=== PATIENT | female | born 1940 | race Caucasian/White ===

== ENCOUNTER 2019-05-06 10:32 | Emergency (ER) | payer MEDICARE, OTHER, SELFPAY ==
[2019-05-06 11:27] VITALS: BP 145/70; PULSE 92; RESP 18; TEMP 36.4; O2SAT 96; BMI 21.9
[2019-05-06 12:21] LABS: Basophils % 0.4 %; Eosinophils # 0.3 10^3/uL (0.0-0.8); Eosinophils % 4.6 %; Hematocrit 41.1 % (37.0-47.0); Hemoglobin 13.1 g/dL (11.5-15.3); Lymphocytes # 1.4 10^3/uL (0.8-4.8); Lymphocytes % 18.7 %; Mean Corpuscular HGB Conc 31.9 g/dL (30.0-36.0); Mean Corpuscular Hemoglobin 30.3 pg (28.0-34.0); Mean Corpuscular Volume 94.9 fL (81-99); Mean Platelet Volume 10.3 fL (7.4-10.4); Monocytes # 0.9 10^3/uL (0.2-0.9); Monocytes % 11.9 %; Neutrophils # 4.6 10^3/uL (1.8-7.7); Neutrophils % 64.3 %; Nucleated Red Blood Cells % 0 %; Platelet Count 283 10^3/cmm (130-400); Red Blood Count 4.33 10^6/uL (4.1-5.3); Red Cell Distribution Width 14.9 % (12.1-15.1); White Blood Count 7.2 10^3/uL (4.0-10.0)
[2019-05-06 12:42] LABS: Alanine Aminotransferase 17 U/L (0-33); Albumin Level 3.9 g/dL (3.5-5.2); Alkaline Phosphatase 138 IU/L (35-105); Anion Gap 12.7 (5-19); Aspartate Amino Transferase 19 U/L (0-32); Blood Urea Nitrogen 17 mg/dL (8-23); Calcium 9.9 mg/dL (8.5-10.5); Carbon Dioxide 29 mmol/L (22-29); Chloride 101 mmol/L (98-107); Creatinine Clr Calc Pharmacy 50.7166; Globulin 3.6 g/dL (1.3-4.6); Glucose 75 mg/dL (74-106); Magnesium 2.1 mg/dL (1.7-2.3); Potassium 3.7 mmol/L (3.5-5.1); Sodium 139 mmol/L (136-145); Total Bilirubin 0.3 mg/dL (0.15-1.2); Total Protein 7.5 g/dL (6.6-8.7)
[2019-05-06 12:44] LABS: INR 0.93 (0.8-1.2); Partial Thromboplastin Time 23.7 SECONDS (23.9-36.7)
--- NOTE | 2019-05-06 14:54 | ED_ITS ---
Entered by Melanie Humphrey, acting as scribe for Artemio Luo DO May 06, 2019 10:32 HPI - Extremity Problem General: Chief complaint: Extremity Problem,Nontraumatic Stated complaint: RIGHT LEG PAIN Time Seen by Provider: 05/06/19 14:54 Source: patient Mode of arrival: wheelchair Limitations: no limitations History of Present Illness: MD Complaint: extremity swelling Onset (ago): day(s) (today) Pain Consistency: constant Location: right Radiation: none Relieving factors: nothing Exacerbating factors: weight bearing, walking and exertion Associated symptoms: Reports no associated symptoms Review of Systems General: Reports: 10 or more systems reviewed and unremarkable except in HPI and below PFSH ED PFSH: Statuses (acute, chronic, etc) shown below reflect problem list status as previously entered and may not be historically accurate Medical History (Updated 04/23/19 @ 12:43 by Khloe Arthur DO) CVA (cerebral vascular accident) (Acute) Fibromyalgia (Acute) GERD (gastroesophageal reflux disease) (Acute) H/O fracture of hip (Acute) Hypothyroidism (Acute) Leg edema (Acute) Lumbar degenerative disc disease (Chronic) Mixed incontinence (Acute) Osteoarthritis (Acute) Osteoporosis (Acute) Surgical History (Updated 04/23/19 @ 10:39 by Khloe Arthur DO) H/O dilation and curettage (Acute) H/O hand surgery (Acute) H/O knee surgery (Acute) H/O tubal ligation (Acute) History of tonsillectomy (Acute) Social History Smoking and tobacco status: current every day smoker cigarettes Packs smoked per day: 1 Alcohol intake: never Physical Exam Const: COMMON NORMALS: no apparent distress, average body habitus, oriented x3, no limitations, healthy appearing, alert and well nourished HENMT: COMMON NORMALS: normocephalic, head/scalp atraumatic, hearing grossly normal bilaterally, external ears normal, EAC's normal, TM's normal bilaterally, external nose normal, nasal mucous membranes and turbinates normal, moist oral mucous membranes, oropharynx normal, dentition normal and gingiva normal HEAD & SCALP: normocephalic and atraumatic NOSE: external nose normal and nasal mucous membranes and turbinates normal EXTERNAL EAR: Yes external ears normal EXTERNAL AUDITORY CANAL: EAC's normal TYMPANIC MEMBRANE: TM's normal bilaterally Eye: COMMON NORMALS: PERRL, EOMs intact bilaterally, conjunctivae normal, no scleral icterus, no papilledema, normal visual mckeon by confrontation and fundi normal bilaterally CONJUNCTIVA: Yes conjunctivae normal PUPIL: Yes PERRL DIRECT OPHTHALMOSCOPY: Yes no papilledema and Yes fundi normal bilaterally Neck/C-Spine: COMMON NORMALS: full ROM, no lymphadenopathy, supple, no meningeal signs, no JVD, thyroid normal and no carotid bruits THYROID: thyroid normal Chest: COMMONS NORMALS: inspection of chest normal and palpation of chest normal Resp: COMMON NORMALS: normal respiratory effort, no retractions, no use of accessory muscles, clear to auscultation bilaterally and percussion normal AUSCULTATION: clear to auscultation bilaterally PERCUSSION: percussion normal Cardio: COMMON NORMALS: no JVD, regular rate, regular rhythm, S1 normal heart sound, S2 normal heart sound, no gallops, no clicks, no murmurs, no rub and peripheral pulses 2+ throughout RATE: regular rate RHYTHM: regular rhythm HEART SOUNDS: S1 normal and S2 normal PERIPHERAL PULSES: pulses 2+ throughout GI: COMMON NORMALS: normal to inspection, nondistended, normoactive bowel sounds, soft to palpation, non-tender, no hepatosplenomegaly, no masses and no bruits PALPATION: Yes soft and Yes no hepatosplenomegaly : COMMON NORMALS: Yes no CVA tenderness and Yes external appearance normal BLADDER/KIDNEY EXAM: Yes no CVA tenderness Back/Pelvis: COMMON NORMALS: no CVA tenderness, thoracic and lumbar spine normal to inspection, no thoracic nor lumbar tenderness, thoraco-lumbar ROM norm al and straight leg raise negative bilaterally Extremity: GENERAL: Yes edema (4 plus on R leg) Neuro: COMMON NORMALS: oriented x3 SENSORIUM/ORIENTATION: Yes alert MENINGEAL SIGNS: Yes no meningeal signs Skin: COMMON NORMALS: no rashes or lesions noted, no wounds, skin turgor normal, no jaundice, no petechiae and no mottling GENERAL SKIN EXAM: no rashes or lesions noted and turgor normal Course Vital Signs: Vital signs: Vital Signs Temperature 98.6 F 05/06/19 15:09 Pulse Rate 95 05/06/19 15:09 Respiratory Rate 16 02/04/20 15:09 Blood Pressure 93/64 05/06/19 15:09 Pulse Oximetry 98 05/06/19 15:09 MDM - Extremity (Nontraumatic) Lab Data: Labs: Lab Results 05/06/19 05/06/19 05/06/19 Range/Units 12:04 12:04 12:04 WBC 7.2 (4.0-10.0) 10^3/ uL RBC 4.33 (4.1-5.3) 10^6/u L Hgb 13.1 (11.5-15.3) g/dL Hct 41.1 (37.0-47.0) % MCV 94.9 (81-99) fL MCH 30.3 (28.0-34.0) pg MCHC 31.9 (30.0-36.0) g/dL RDW 14.9 (12.1-15.1) % Plt Count 283 (130-400) 10^3/c mm MPV 10.3 (7.4-10.4) fL Neut % (Auto) 64.3 % Lymph % (Auto) 18.7 % [place] % (Auto) 11.9 % Eos % (Auto) 4.6 % Baso % (Auto) 0.4 % Neut # (Auto) 4.6 (1.8-7.7) 10^3/u L Lymph # (Auto) 1.4 (0.8-4.8) 10^3/u L [place] # (Auto) 0.9 (0.2-0.9) 10^3/u L Eos # (Auto) 0.3 (0.0-0.8) 10^3/u L Baso # (Auto) 0.0 (0.0-0.1) 10^3/u L Nucleated RBC % (a uto) 0 % Nucleated RBCs # 0.0 /100WBC PT 12.50 (10.5-13.3) SECO NDS INR 0.93 (0.8-1.2) APTT 23.7 L (23.9-36.7) SECO NDS Sodium 139 (136-145) mmol/L Potassium 3.7 (3.5-5.1) mmol/L Chloride 101 (98-107) mmol/L Carbon Dioxide 29 (22-29) mmol/L Anion Gap 12.7 (5-19) BUN 17 (8-23) mg/dL Creatinine 0.9 (0.5-0.9) mg/dL Glucose 75 (74-106) mg/dL Calcium 9.9 (8.5-10.5) mg/dL Magnesium 2.1 (1.7-2.3) mg/dL Total Bilirubin 0.3 (0.15-1.2) mg/dL AST 19 (0-32) U/L ALT 17 (0-33) U/L Alkaline Phosphata se 138 H (35-105) IU/L Total Protein 7.5 (6.6-8.7) g/dL Albumin 3.9 (3.5-5.2) g/dL Globulin 3.6 (1.3-4.6) g/dL Discharge Plan Discharge Prescriptions: No Action calcium carbonate-vitamin D3 [Oyster Shell Calcium-Vit D3] 500 mg(1,250mg) - 400 unit tablet 1 tab PO QDAY RF: 0 magnesium 250 mg tablet 250 mg PO QDAY RF: 0 ICaps AREDS 7,160-113-100 [id number]-hk-[id number] tablet,delayed release (DR/EC) 1 tab PO ONCE RF: 0 amitriptyline 100 mg tablet 100 mg PO QDAY RF: 0 baclofen 5 mg tablet 5 mg PO TID Qty: 90 RF: 0 clopidogrel [Plavix] 75 mg tablet 75 mg PO QDAY RF: 0 famotidine [Pepcid] 40 mg tablet 40 mg PO QDAY RF: 0 levothyroxine 50 mcg capsule 50 mcg PO QDAY RF: 0 potassium chloride 10 mEq capsule, extended release 20 meq PO QDAY RF: 0 furosemide 40 mg tablet 40 mg PO QAM RF: 0 duloxetine [Cymbalta] 30 mg capsule,delayed release(DR/EC) 30 mg PO QDAY RF: 0 tramadol 50 mg tablet 50 - 100 mg PO BID PRNRF: 0 Coding Level of Care Code ED Grain Thresher for Chg Fwd Exam Problem Focused The documentation recorded by the Kam eid Bridget Annette, accurately reflects the service I personally performed and the decisions made by Valerio patino Donald P, DO May 06, 2019 10:32
--- NOTE | 2019-05-06 14:59 | USCV_ITS ---
Bennett Gina Age: 79 Gender: F : 1940 Exam Date: 05/06/2019 15:22 Ordering Phys: Artemio Luo DO Technologist: Kourtney Redman [place] [facility] [place]: PAIN, SWELLING HISTORY: PT HAS HX OF BROKEN HIP AND OTHER ISSUES WITH LEGS-RT FOOT TURNS IN. PROCEDURES: Venous duplex imaging was performed in only the right lower extremity. The following venous structures were evaluated: common femoral vein, profunda vein, proximal portion of the greater saphenous vein, superficial femoral vein, and the popliteal vein. In addition, the posterior tibial and peroneal trunk were evaluated. FINDINGS: Normal 2-D Doppler and augmentation and compressibility throughout the lower extremity venous structures. Additional imaging through the proximal calf veins also reveals no thrombus. Limited evaluation of the greater saphenous vein is patent with no thrombus.. CONCLUSIONS No evidence of right lower extremity DVT. Drake Zabala MD (Electronically Signed) Final Date: 06 May 2019 16:23 S
[2019-05-06 15:09] VITALS: BP 93/64; PULSE 95; RESP 16; TEMP 37; O2SAT 98
[2019-05-06 16:45] VITALS: BP 128/67; PULSE 107; RESP 14; TEMP 36.4; O2SAT 96
== END 2019-05-06 16:46 | disposition home or self-care (01) ==
PROVIDERS: Emergency Provider Family Medicine; Family Provider Electrodiagnostic Medicine; PCP Family Medicine
DX: M79.604 Pain in right leg (principal); R22.41 Localized swelling, mass and lump, right lower limb; E03.9 Hypothyroidism, unspecified; F17.210 Nicotine dependence, cigarettes, uncomplicated
CPT/HCPCS: 36415; 80053; 83735; 85025; 85610; 85730; 93971; 99281; 99283

== ENCOUNTER 2019-06-19 14:19 | Outpatient (CLI) | payer MEDICARE, OTHER, SELFPAY ==
[2019-06-19 14:45] VITALS: BP 125/65; PULSE 94; RESP 18; TEMP 36.5; O2SAT 97
[2019-06-19] MEDS: denosumab 60 mg SDV SUBCUT (15:15)
--- NOTE | 2019-06-19 15:16 | PC.NURSE ---
Pt and caregiver educated on Prolia. Prolia information and brochure given.
[2019-06-19 15:45] VITALS: BP 138/76; TEMP 36.7
--- NOTE | 2019-06-19 16:33 | PC.NURSE ---
On arrival, pt screened per COVID 19 guidelines. Denies fever, cough, SOB. Denies any illness or possible exposure.
== END 2019-06-19 14:20 | disposition home or self-care (01) ==
LOC: RHEOACUTE 14:20
PROVIDERS: Family Provider Electrodiagnostic Medicine; PCP Family Medicine; Visit Provider Internal Medicine Rheumatology
DX: M81.0 Age-related osteoporosis without current pathological fracture (principal)
CPT/HCPCS: 96372; J0897

== ENCOUNTER 2019-07-02 13:51 | Outpatient (CLI) | payer MEDICARE, OTHER, SELFPAY ==
--- NOTE | 2019-07-02 13:56 | XR_ITS ---
WS: [id number] LUMBAR SPINE FLEXION AND EXTENSION TECHNIQUE: 3 views of the lumbar spine: Lateral neutral, flexion, and extension views. CLINICAL INFORMATION: LOW BACK PAIN COMPARISON: None. FINDINGS: Osteopenia. Normal alignment on the neutral view. Disc space narrowing worse at L2-L3, L3-L4, L4-L5 a nd L5-S1. Vascular calcification. Mild chronic anterior wedging at L2. Advanced facet arthropathy low er lumbar spine. No instability on flexion extension. XR/XR lumbar spine f/e only [id number] IMPRESSION: 1. No instability on flexion-extension. 2. Mild chronic appearing anterior wedging at L2.
--- NOTE | 2019-07-02 13:56 | CT_ITS ---
WS: [id number] CT LUMBAR SPINE TECHNIQUE: Noncontrast CT of the lumbar spine with coronal and sagittal reformatted images. CLINICAL INFORMATION: LOW BACK PAIN COMPARISON: MRI August 06, 2012 DLP: 1623.[address] scans at [facility] use at least one of these dose optimization techniques: automat ed exposure control; mA and/or kV adjustment per patient size (includes targeted exams where dose is matched to clinical indication); or iterative reconstruction. FINDINGS: Moderate lumbar scoliosis convex right. Mild chronic appearing compression of the superior endplate L 2. This is stable since 2012. Moderate spondylitic changes. Disc space narrowing with vacuum disc phe nomenon L2-3 and L4-5. Disc space narrowing L5-S1. L1-L2: Mild disc bulging with osteophytic ridging. Spinal canal and foramen are patent. Moderate face t arthropathy. L2-L3: Left eccentric disc osteophyte complex with moderate left foraminal narrowing. Impingement on the exiting left L2 nerve root. Right foramen is patent. Moderate facet arthropathy. Mild central can al stenosis. L3-L4: Mild disc bulging with osteophytic ridging. Mild central canal stenosis. Mild left and no sign ificant right foraminal narrowing. Moderate to advanced facet arthropathy. L4-L5: Slight retrolisthesis L4 on L5. Vacuum disc phenomenon. Mild central canal stenosis and narrow ing of the subarticular recess bilaterally. Mild right and no significant left foraminal narrowing. M oderate facet arthropathy. L5-S1: Small central disc osteophyte complex with slight effacement of ventral thecal sac. Contact of the traversing S1 nerve roots. Moderate right and no significant left foraminal narrowing. Advanced right facet arthropathy. Partially visualized large left renal cyst measuring 6.5CM. Right peripelvic renal cyst measuring 1.5 cm. Aortic calcification. Slightly aneurysmal infrarenal abdominal aorta measuring 1.[address]/CT lumbar spine wo con* [id number] IMPRESSION: 1. Moderate lumbar scoliosis. No acute compression fractures. 2. Mild chronic compression superior endplate L2 with anterior wedging unchang ed since the MRI in 2012. 3. Mild central canal stenosis due to disc osteophyte complexes with facet art hropathy and ligamentum flavum hypertrophy at L2-3, L3-L4, L4-5. 4. Multilevel foraminal narrowing worse at left L2-3, left L4-5, and right L5- S1. 5. Small shallow central disc protrusions L4-L5 and L5-S1. 6. Moderate to advanced facet arthropathy L3-L5.
== END 2019-07-02 13:52 | disposition home or self-care (01) ==
LOC: RADWPI 13:55
PROVIDERS: Family Provider Electrodiagnostic Medicine; PCP Family Medicine; Visit Provider Nurse Practitioner
DX: M41.86 Other forms of scoliosis, lumbar region (principal); M25.78 Osteophyte, vertebrae; M48.061 Spinal stenosis, lumbar region without neurogenic claudication; M48.07 Spinal stenosis, lumbosacral region; M51.27 Other intervertebral disc displacement, lumbosacral region; M47.817 Spondylosis without myelopathy or radiculopathy, lumbosacral region
CPT/HCPCS: 72120; 72131

== ENCOUNTER 2020-01-12 15:33 | Outpatient (CLI) | payer MEDICARE, OTHER, SELFPAY | END 2020-01-12 15:34 | disposition home or self-care (01) | LOC: WPI 15:46 → RADWPI 15:52 | PROVIDERS: Family Provider Electrodiagnostic Medicine; PCP Family Medicine; Visit Provider Family Medicine | DX: M81.0 Age-related osteoporosis without current pathological fracture (principal) | CPT/HCPCS: 80053; 87086 ==

== ENCOUNTER → 2020-01-13 13:37 | Outpatient (BNVA) | payer MEDICARE, OTHER, SELFPAY | PROVIDERS: Family Provider Electrodiagnostic Medicine; PCP Family Medicine; Visit Provider Family Medicine | DX: R39.15 Urgency of urination (principal); N39.3 Stress incontinence (female) (male) | CPT/HCPCS: 81000; 87086 ==

== ENCOUNTER 2020-01-15 13:34 | Outpatient (CLI) | payer MEDICARE, OTHER, SELFPAY ==
--- NOTE | 2020-01-15 13:39 | XR_ITS ---
WS: [id number] WRIST LEFT TECHNIQUE: 3 views of the left wrist CLINICAL INFORMATION: left wrist COMPARISON: None. FINDINGS: Osteopenia. Mild narrowing of the radiocarpal joint. Normal scaphoid and lunate. Advanced degenerativ e arthritis the first CMC. Metacarpals are normal. Ulna minus variance No acute fractures. XR/XR wrist LT min 3V* [id number] IMPRESSION: 1. Osteopenia. 2. Mild degenerative arthritis the radiocarpal joint. 3. Advanced degenerative arthritis at the first CMC with erosive changes. 4. No acute fractures.
== END 2020-01-15 13:35 | disposition home or self-care (01) ==
LOC: RADWPI 13:38
PROVIDERS: Family Provider Family Medicine; PCP Family Medicine; Visit Provider Family Medicine
DX: M85.88 Other specified disorders of bone density and structure, other site (principal); M19.032 Primary osteoarthritis, left wrist
CPT/HCPCS: 73110

== ENCOUNTER 2020-01-26 13:53 | Outpatient (CLI) | payer MEDICARE, OTHER, SELFPAY ==
[2020-01-26 14:05] VITALS: BP 134/59; PULSE 107; RESP 16; TEMP 36.6; O2SAT 97
[2020-01-26] MEDS: denosumab 60 mg SDV SUBCUT (14:15)
[2020-01-26 14:26] VITALS: BMI 22.4
--- NOTE | 2020-01-26 14:28 | PC.NURSE ---
Pt in wheelchair with caregiver. A&O x3. Wrapping to R lower leg, states for edema. States PT does wraps on leg. Wrist brace on L wrist. States going to ortho next month. Denies infection or s&s of infection.
[2020-01-26 14:40] VITALS: BP 137/67; PULSE 111; RESP 16; TEMP 36.7; O2SAT 95
== END 2020-01-26 13:54 | disposition home or self-care (01) ==
LOC: RHEOACUTE 13:56
PROVIDERS: Family Provider Family Medicine; PCP Family Medicine; Visit Provider Internal Medicine Rheumatology
DX: M81.0 Age-related osteoporosis without current pathological fracture (principal)
CPT/HCPCS: 96372; J0897

== ENCOUNTER 2020-02-23 | Outpatient (CLI) | payer MEDICARE, OTHER, SELFPAY | END 2020-02-23 23:55 | disposition home or self-care (01) | LOC: SOT 03-16 13:14 | PROVIDERS: Family Provider Family Medicine; PCP Family Medicine; Referring Provider Specialist; Visit Provider Specialist | DX: G56.92 Unspecified mononeuropathy of left upper limb (principal) | CPT/HCPCS: L3766 ==

== ENCOUNTER → 2020-05-10 10:33 | Outpatient (BNVA) | payer MEDICARE, OTHER, SELFPAY | PROVIDERS: Family Provider Family Medicine; PCP Family Medicine; Visit Provider Family Medicine | DX: K21.9 Gastro-esophageal reflux disease without esophagitis (principal); M81.0 Age-related osteoporosis without current pathological fracture; E03.9 Hypothyroidism, unspecified | CPT/HCPCS: 80053; 84443 ==

== ENCOUNTER → 2020-06-08 14:27 | Outpatient (BNVA) | payer MEDICARE, OTHER, SELFPAY | PROVIDERS: Family Provider Family Medicine; PCP Family Medicine; Visit Provider Specialist | DX: G62.9 Polyneuropathy, unspecified (principal); R53.1 Weakness; M54.17 Radiculopathy, lumbosacral region; M24.561 Contracture, right knee; F17.210 Nicotine dependence, cigarettes, uncomplicated | CPT/HCPCS: 99204 ==

== ENCOUNTER 2020-09-10 12:59 | Emergency (ER) | payer MEDICARE, OTHER, SELFPAY ==
[2020-09-10 13:30] VITALS: BP 127/68; PULSE 90; RESP 18; TEMP 36.6; O2SAT 97; BMI 18.8
[2020-09-10 14:33] VITALS: BP 167/73; PULSE 83; RESP 18; O2SAT 97
[2020-09-10 14:35] LABS: Basophils % 0.5 %; Eosinophils # 0.2 10^3/uL (0.0-0.8); Eosinophils % 3.1 %; Hemoglobin 12.9 g/dL (11.5-15.3); Lymphocytes # 1.1 10^3/uL (0.8-4.8); Lymphocytes % 20.3 %; Mean Corpuscular HGB Conc 32.3 g/dL (30.0-36.0); Mean Corpuscular Hemoglobin 30.6 pg (28.0-34.0); Mean Corpuscular Volume 94.8 fL (81-99); Mean Platelet Volume 10.7 fL (7.4-10.4); Monocytes # 0.6 10^3/uL (0.2-0.9); Monocytes % 11.7 %; Neutrophils # 3.52 10^3/uL (1.8-7.7); Neutrophils % 64.2 %; Nucleated Red Blood Cells % 0 %; Platelet Count 223 10^3/cmm (130-400); Red Blood Count 4.22 10^6/uL (4.1-5.3); Red Cell Distribution Width 15.5 % (12.1-15.1); White Blood Count 5.5 10^3/uL (4.0-10.0)
[2020-09-10 14:53] LABS: Alanine Aminotransferase 10 U/L (0-33); Albumin Level 3.7 g/dL (3.5-5.2); Alkaline Phosphatase 98 IU/L (35-105); Anion Gap 12.7 (5-19); Aspartate Amino Transferase 18 U/L (0-32); Blood Urea Nitrogen 19 mg/dL (8-23); Calcium 8.9 mg/dL (8.5-10.5); Carbon Dioxide 28 mmol/L (22-29); Chloride 99 mmol/L (98-107); Globulin 2.8 g/dL (1.3-4.6); Glucose 78 mg/dL (65-115); Lipase 33 U/L (13-60); Magnesium 1.9 mg/dL (1.7-2.3); Osmolality Calculated 283 mOsm/kg (285-295); Potassium 3.7 mmol/L (3.5-5.1); Sodium 136 mmol/L (136-145); Total Bilirubin 0.4 mg/dL (0.15-1.2); Total Protein 6.5 g/dL (6.6-8.7)
--- NOTE | 2020-09-10 15:00 | CTR_ITS ---
PROCEDURE INFORMATION: Exam: CT Neck With Contrast Exam date and time: 09/10/2020 3:00 PM Age: 80 years old Clinical indication: Throat pain. Reflux. Swallowing difficulty. TECHNIQUE: Imaging protocol: Computed tomography images of the neck with contrast. Radiation optimization: All CT scans at this facility use at least one of these dose optimization techniques: automated exposure control; mA and/or kV adjustment per patient size (includes targeted exams where dose is matched to clinical indication); or iterative reconstruction. Contrast material: OMNI 300; Contrast volume: 75 ml; Contrast route: INTRAVENOUS (IV); COMPARISON: No relevant prior studies available. RADIATION DOSE METRICS: Total DLP (mGy-cm): 353.26 FINDINGS: There is globular atheromatous plaque in the distal aortic arch and descending thoracic aorta. 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 No propagating dissection is seen. There is no evidence of rupture. There is approximately 50% narrowing of the proximal left common carotid artery. There is occlusion of the proximal right external carotid artery. There is approximately 40% narrowing of the proximal right internal carotid artery. There is approximately 30% narrowing of the proximal left internal carotid artery. The orbits are unremarkable. The visualized parapharyngeal soft tissues are symmetric. The temporomandibular joints are anatomically aligned. The visualized paranasal sinuses and mastoid air cells are normally pneumatized. The visualized submandibular and parotid glands are symmetric. A precarinal lymph node measures 1.6 x 2.3 cm. The thyroid is unremarkable. There is severe centrilobular emphysema in the lung apices. Minimal wedging of C7 and T1 appears physiologic or chronic. No acute appearing fracture is identified. Ukjv-ni-[id number] degenerative disc disease is seen in the cervical spine. There is at least moderate central spinal canal narrowing at C5-C6 and C6-C7. There is stringy debris in the trachea. CT/CT neck w con* [id number] IMPRESSION: 1. No finding is identified to account for patient's throat pain/dysphagia. Consider direct visualization to further assess if clinically warranted. 2. Globular atheromatous plaque in the distal aortic arch and descending thoracic aorta. 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 There is no evidence of rupture. 3. Approximately 50% narrowing of the proximal left common carotid artery. 4. Occlusion of the proximal right external carotid artery. 5. Approximately 40% narrowing of the proximal right internal carotid artery. 6. Approximately 30% narrowing of the proximal left internal carotid artery. 7. Severe centrilobular emphysema in the lung apices. 8. There is stringy debris in the trachea. 9. Mediastinal lymphadenopathy. 10. Yvgn-[id number]-[id number] degenerative disc disease is seen in the cervical spine. There is at least moderate central spinal canal narrowing at C5-C6 and C6-C7. Radiation Dose CTDIVOL = (mGy): DLP = 353.26 (mGy-cm)
--- NOTE | 2020-09-10 15:05 | W.ED.ABDPA2 ---
HPI - Abdominal Pain General: Chief Complaint: Abdominal Pain Stated Complaint: NAUSEA/ WEAKNESS Time Seen by Provider: 09/10/20 14:11 History of Present Illness: HPI narrative: 80-year-old female presents emergency room complaint difficulty with keeping down food and fluids for the last several days she has been using liquid breakfast supplements. She denies any abdominal pain she states that she tries to drink today for acute clot in the throat and the upper chest and then she will cough them back up. She is able to swallow liquids and secretions. She denies any hematochezia melena hematemesis or coffee-ground emesis she is not previously had an EGD or a colonoscopy. MD elicited complaint: other (Swallowing difficulty) Pain Consistency: intermittent Severity: moderate Quality: aching Radiation: none Migration to: no migration Exacerbating factors: eating Relieving factors: other Associated Symptoms: Denies anorexia, belching, bloating, change in bowel habits, change in stool character, chills, coffee ground emesis, constipation, GI cramping, diarrhea, dyspepsia, dysuria, excessive flatus, fever(s), heartburn, hematochezia, hematuria, hematemesis, fecal incontinence, loose stools, melena, nausea, poor appetite, syncope and vomiting Review of Systems Const: Denies: fever(s) or chills ENMT: Denies: throat pain, ear or mastoid pain, nasal discharge or nasal congestion Card: Denies: syncope Resp: Denies: dyspnea, productive cough or non-productive cough GI: Denies: nausea, vomiting, hematemesis, coffee ground emesis, heartburn, diarrhea, constipation, bloating, GI cramping, belching, excessive flatus, fecal incontinence, change in bowel habits, change in stool character, hematochezia or melena : Denies: dysuria or hematuria Skin/Breast: Denies: rash or pruritus PFSH ED PFSH: Medical History CVA (cerebral vascular accident) Fibromyalgia GERD (gastroesophageal reflux disease) H/O fracture of hip Hypothyroidism Leg edema Lumbar degenerative disc disease Mixed incontinence Osteoarthritis Osteoporosis Surgical History H/O dilation and curettage H/O hand surgery H/O knee surgery H/O tubal ligation History of tonsillectomy Family History Sister Cancer PANCREATIC Other CAD (coronary artery disease) Hypertension Lung disease Social History Smoking and tobacco status: current every day smoker cigarettes Packs smoked per day: 1 Alcohol intake: never Physical Exam Const: COMMON NORMALS: no acute distress GENERAL APPEARANCE: cooperative and comfortable ORIENTATION/CONSCIOUSNESS: Yes awake, Yes oriented to person, Yes oriented to place and Yes oriented to time HENMT: COMMON NORMALS: normocephalic, atraumatic, hearing grossly normal bilaterally and external ears normal HEAD & SCALP: normocephalic and atraumatic EXTERNAL EAR: Yes external ears normal Neck/C-Spine: COMMON NORMALS: no JVD Resp: COMMON NORMALS: normal respiratory effort, No retractions, No use of accessory muscles and clear to auscultation bilaterally AUSCULTATION: clear to auscultation bilaterally Cardio: COMMON NORMALS: no JVD, regular rate, regular rhythm and No murmurs present (Cardio) RATE: regular rate RHYTHM: regular rhythm GI: COMMON NORMALS: Soft to palpation and No hepatosplenomegaly present AUSCULTATION: Yes normoactive bowel sounds PALPATION: Yes Soft to palpation, No Tenderness to palpation present (GI), No Guarding due to palpation present (GI) and Yes No hepatosplenomegaly present Extremity: COMMON NORMALS: normal to inspection, capillary refill normal, no clubbing, cyanosis or edema, no calf tenderness and no pedal edema Neuro: SENSORIUM/ORIENTATION: Yes oriented to person, Yes oriented to place and Yes oriented to time Skin: COMMON NORMALS: no rashes or lesions noted GENERAL SKIN EXAM: no rashes or lesions noted Course Vital Signs: Vital signs: Vital Signs Temperature 97.9 F 09/10/20 13:30 Pulse Rate 91 09/10/20 16:01 Respiratory Rate 17 09/10/20 16:01 Blood Pressure 168/84 09/10/20 16:01 Pulse Oximetry 98 09/10/20 16:01 MDM - Abdominal Pain MDM Narrative: Medical decision making narrative: CT unremarkable for any Zenker's diverticuli. Kermit is started on pantoprazole increased to 40 twice daily add Reglan and get her set up for an EGD. She may need to consider ENT consultation pending the results. Return if worsens. Recommend mechanical soft liquid diet. Lab Data: Labs: Lab Results 09/10/20 09/10/20 09/10/20 Range/Units 14:21 14:21 14:38 WBC 5.5 (4.0-10.0) 10^3/ uL RBC 4.22 (4.1-5.3) 10^6/u L Hgb 12.9 (11.5-15.3) g/dL Hct 40.0 (37.0-47.0) % MCV 94.8 (81-99) fL MCH 30.6 (28.0-34.0) pg MCHC 32.3 (30.0-36.0) g/dL RDW 15.5 H (12.1-15.1) % Plt Count 223 (130-400) 10^3/c mm MPV 10.7 H (7.4-10.4) fL Neut % (Auto) 64.2 % Lymph % (Auto) 20.3 % [place] % (Auto) 11.7 % Eos % (Auto) 3.1 % Baso % (Auto) 0.5 % Neut # (Auto) 3.52 (1.8-7.7) 10^3/u L Lymph # (Auto) 1.1 (0.8-4.8) 10^3/u L [place] # (Auto) 0.6 (0.2-0.9) 10^3/u L Eos # (Auto) 0.2 (0.0-0.8) 10^3/u L Baso # (Auto) 0.0 (0.0-0.1) 10^3/u L Nucleated RBC % (a uto) 0 % Nucleated RBCs # 0.0 /100WBC Sodium 136 (136-145) mmol/L Potassium 3.7 (3.5-5.1) mmol/L Chloride 99 (98-107) mmol/L Carbon Dioxide 28 (22-29) mmol/L Anion Gap 12.7 (5-19) BUN 19 (8-23) mg/dL Creatinine 0.9 (0.5-0.9) mg/dL GFR Calculation Not Reportable Glucose 78 (65-115) mg/dL Calculated Osmolal ity 283 L (285-295) mOsm/k g Calcium 8.9 (8.5-10.5) mg/dL Magnesium 1.9 (1.7-2.3) mg/dL Total Bilirubin 0.4 (0.15-1.2) mg/dL AST 18 (0-32) U/L ALT 10 (0-33) U/L Alkaline Phosphata se 98 (35-105) IU/L Total Protein 6.5 L (6.6-8.7) g/dL Albumin 3.7 (3.5-5.2) g/dL Globulin 2.8 (1.3-4.6) g/dL Lipase 33 (13-60) U/L Urine Color Yellow (Yellow) Urine Appearance Clear (CLEAR) Urine pH 6 (5-7) Ur Specific Gravit y 1.020 (1.005-1.030) Urine Protein Neg (Negative) Urine Glucose (UA) Norm (Normal) Urine Ketones Negative (Negative) Urine Blood Neg (Negative) Urine Nitrate Negative (Negative) Urine Bilirubin Neg (Negative) Urine Urobilinogen Norm (Negative) mg/dL Ur Leukocyte Lilly ase Trace H (Negative) Urine RBC 0-4 H (0-2) /hpf Urine WBC 25-40 H (0-5) /hpf Ur Squamous Epith Cells 0-4 H (0-5) /hpf Amorphous Sediment Not Reportable Urine Bacteria 4+ H (NONE) /hpf Hyaline Casts 0-4 H /lpf Discharge Plan Discharge Patient Disposition: Home Clinical Impression: Dysphagia Condition: Stable Prescriptions: New Reglan 10 mg tablet 10 mg PO Q6H PRN (Reason: nausea and vomiting) Qty: 20 RF: 0 Protonix 40 mg tablet,delayed release (DR/EC) 40 mg PO BID 14 Days Qty: 28 RF: 0 No Action ICaps AREDS 7,160-113-100 [id number]-di-[id number] tablet,delayed release (DR/EC) 2 tab PO QAM RF: 0 hydrocodone-acetaminophen 5-325 mg tablet 0.5 - 1 tab PO BID PRN (Reason: Pain) RF: 0 baclofen 5 mg tablet 5 mg PO TID Qty: 270 RF: 1 (DME) Power Wheelchair See Rx Instructions .Route .MEDSUPPLY Qty: 1 RF: 0 Tylenol 325 mg Tablet 325 - 650 mg PO PRN RF: 0 Carafate 1 gram tablet 1 gm PO Q6H RF: 0 Plavix 75 mg tablet 75 mg PO QAM RF: 0 amitriptyline 50 mg tablet 100 mg PO BEDTIME RF: 0 levothyroxine 50 mcg tablet 50 mcg PO QAM RF: 0 Protonix 40 mg tablet,delayed release (DR/EC) 40 mg PO QAM RF: 0 oxybutynin chloride 5 mg tablet 5 mg PO QAM RF: 0 Cymbalta 30 mg capsule,delayed release(DR/EC) 30 mg PO BEDTIME RF: 0 Discharge Orders: Discharge ED (Routine); Ordered 09/10/20 Ordered By: Brady Infante Referrals: Khloe Arthur DO [Primary Care Provider] - Discharge Diet: Usual diet Discharge Activity: Resume usual activity Patient Instructions: Opioid Safety Coding Level of Care Code ED Cloth Printing Inspector for Johnny Morejon
[2020-09-10 15:25] LABS: Add Urine Microscopic? YES; Bilirubin Urine Neg (Negative); Blood Urine Neg (Negative); Glucose Urine UA Norm (Normal); Ketones Urine Negative (Negative); Leukocyte Esterase Urine Trace (Negative); Nitrate Urine Negative (Negative); Protein Urine Neg (Negative); Urine Appearance Clear (CLEAR); Urine Color Yellow (Yellow); Urobilinogen Urine Norm (Negative); pH Urine 6 (5-7)
[2020-09-10] MEDS: iohexol 300 mg/mL 100 mL Btl IV (15:26)
[2020-09-10 15:39] LABS: Add Urine Culture? Yes; Bacteria Urine 4+ /hpf; Hyaline Casts Urine 0-4 /lpf; RBC Urine 0-4 /hpf (0-2); Squamous Epithelial Cell Urine 0-4 /hpf (0-5); WBC Urine 25-40 /hpf (0-5)
[2020-09-10 16:01] VITALS: BP 168/84; PULSE 91; RESP 17; O2SAT 98
== END 2020-09-10 17:55 | disposition home or self-care (01) ==
PROVIDERS: Emergency Provider Family Medicine; PCP Family Medicine
DX: R13.10 Dysphagia, unspecified (principal); Z79.02 Long term (current) use of antithrombotics/antiplatelets; Z86.73 Personal history of transient ischemic attack (TIA), and cerebral infarction without residual deficits; F17.210 Nicotine dependence, cigarettes, uncomplicated
CPT/HCPCS: 70491; 80053; 81001; 83690; 83735; 85025; 87086; 99283; Q9967

== ENCOUNTER 2020-10-12 09:44 | Outpatient (CLI) | payer MEDICARE, OTHER, SELFPAY ==
--- NOTE | 2020-10-12 09:56 | FL_ITS ---
WS: [id number] Single CONTRAST UPPER GI EXAMINATION HISTORY: R13.19 - Other dysphagia COMPARISON: None available. FLUOROSCOPY TIME: 2.8 minutes. Very limited evaluation of the upper GI due to patient immobility. Loom Operator radiograph demonstrates severe constipation and fecal retention throughout the entire colon. Th oracolumbar scoliosis. Patient was able to drink the barium mixture and is shallow RPO position. There is marked delayed emp tying of the esophagus. To and from motion of barium within the esophagus with delayed emptying. Ther e is very minimal narrowing of the distal esophagus. This did not appear to be a limiting factor. The esophagus emptied slowly because of dysmotility. Mild distention of the stomach with contrast. There is no delay in emptying through the duodenal C-loop. FL/FL upper GI w air* [id number] IMPRESSION: 1. Significant delay in emptying of the esophagus with to and fro motion of th e barium to the level of the cervical esophagus during the examination. 2. Very mild narrowing of the distal esophagus but did not appear to be causin g delayed emptying of the esophagus. 3. Moderate diffuse tertiary contractions within the esophagus.
== END 2020-10-12 09:45 | disposition home or self-care (01) ==
LOC: RADWPI 09:52
PROVIDERS: PCP Family Medicine; Visit Provider Surgery
DX: R13.19 Other dysphagia (principal)
CPT/HCPCS: 74246

== ENCOUNTER 2020-11-11 08:57 | Outpatient (CLI) | payer MEDICARE, OTHER, SELFPAY ==
--- NOTE | 2020-11-11 09:30 | USCV_ITS ---
Gina Bennett Age: 80 Gender: F : 1940 Exam Date: 11/11/2020 09:33 Ordering Phys: Khloe Arthur DO Technologist: Sophia Toledo Exam Location: [place] Indication: EVAL FOR AAA HISTORY: Diameter (cm) AP x Transverse x Length Velocity (cm/s) Waveform Prox Aorta: 1.95 x 1.73 x 92.50 Mid Aorta: 1.18 x 1.27 x 62.80 Distal Aorta: 1.13 x 1.00 x 68.60 Right Iliac Prox: 0.47 x 0.56 x 111.60 Left Iliac Prox: 0.60 x 0.71 x 90.10 Stent Prox Landing x x Aneurysmal Sac Max x x Lt Lat Sac Dim Rt Lat Sac Dim Stent Dist Landing x x Right Iliac Stent x x Left Iliac Stent x x Right Renal Art Left Renal Art FINDINGS: Mild to moderate diffuse plaques in the abdominal aorta. Relatively small caliber aorta Normal Doppler flow velocities in the aorta and in the proximal common iliac arteries CONCLUSIONS Mild to moderate diffuse plaques in the abdominal aorta with no evidence of aneurysm. Normal Doppler velocities suggesting no significant arterial obstruction in the above-mentioned vessels Dr Alejandrina Francois MD [facility] (Electronically Signed) Final Date: 11 November 2020 19:14 S
--- NOTE | 2020-11-11 10:15 | USCV_ITS ---
Gina Bennett Age: 80 Gender: F : 1940 Exam Date: 11/11/2020 09:41 Ordering Phys: Khloe Arthur DO Technologist: Sophia Toledo [place] [facility] [place]: EVAL FOR CAROTID STENOSIS Risk Factors: Previous Vascular Surgery: Right Brachial BP: / Left Brachial BP: / Right Left Velocity (cm/s) Spectral Plaque Velocity (cm/s) Spectral Plaque Syst/Diast Broadening Syst/Diast Broadening 96.60/ 18.80 Prox CCA 93.30 / 19.70 73.50/ 17.10 Mid CCA 85.40 / 18.40 65.80/ 17.90 Distal CCA 88.10 / 25.00 93.30/ 17.10 Prox ICA 113.40/ 18.60 85.40/ 18.10 Mid ICA 124.90/ 30.20 98.20/ 28.80 Distal ICA 105.20/ 31.60 368.10 ECA 351.10 1.02 ICA/CCA 1.34 Antegrade Vertebral Antegrade 103.9/ 13.10 cm/s 96.00/ 18.40 cm/s 0 Tri Subclavian Tri 178.1 194.3 0 0 FINDINGS Moderate heterogeneous plaques of the bifurcations bilaterally. Heavy heterogeneous plaques at the proximal external carotid arteries bilaterally. Intimal thickening and minimal plaques in the common carotid arteries bilaterally. Antegrade flow in the vertebral arteries bilaterally. CONCLUSIONS Moderate heterogeneous plaques of the bifurcations bilaterally with the Doppler features suggesting less than 50% stenosis. Elevated velocity with heavy heterogeneous plaques in the proximal external carotid artery bilaterally , suggestive of hemodynamically significant stenosis. Intimal thickening and minimal plaques in the common carotid arteries bilaterally. Dr Alejandrina Francois MD [facility] (Electronically Signed) Final Date: 12 November 2020 14:09 S
== END 2020-11-11 08:58 | disposition home or self-care (01) ==
LOC: RAD 09:03
PROVIDERS: PCP Family Medicine; Visit Provider Family Medicine
DX: I65.23 Occlusion and stenosis of bilateral carotid arteries (principal); I71.4 Abdominal aortic aneurysm, without rupture
CPT/HCPCS: 93880; 93978

== ENCOUNTER → 2020-12-13 10:29 | Outpatient (BNVA) | payer MEDICARE, OTHER, SELFPAY | PROVIDERS: PCP Family Medicine; Visit Provider Surgery | DX: R13.19 Other dysphagia (principal) | CPT/HCPCS: 87635 ==

== ENCOUNTER 2020-12-16 09:26 | Day surgery (SDC) | payer MEDICARE, OTHER, SELFPAY ==
[2020-12-13 13:25] VITALS: BMI 20.1
[2020-12-16 09:59] VITALS: BP 166/71; PULSE 88; RESP 18; TEMP 35.8; O2SAT 97
[2020-12-16] MEDS: sodium chloride 0.9% 1,000 ML 30 ML IV (10:21)
--- NOTE | 2020-12-16 10:51 | P.HP_ITS ---
Same Day Surgery H&P Indication for Procedure/HPI DATE OF PROCEDURE: December 16, 2020 CHIEF COMPLAINT/INDICATIONFOR SURGICAL PROCEDURE: dyspyhagia to solids PREOP DIAGNOSIS: upper gi symptoms PLANNED PROCEDRUE: Operation Date: 12/16/20 10:45 Proposed Procedures p EGD 45281 [id number](Not Applicable) - Ricky Thacker MD Medications/Allergies* Home Medications Medication Instructions Recorded Confirmed Type vit A 7,160 unit-C 113 mg-E 100 2 tab PO QAM tab 06/04/19 12/13/20 History [id number] tablet,delayed rel. hydrocodone 5 mg-acetaminophen 325 0.5 - 1 tab PO BID PRN 12/03/19 12/13/20 History mg tablet acetaminophen [Tylenol] 325 - 650 mg PO PRN 09/10/20 12/13/20 History amitriptyline 100 mg PO BEDTIME 09/10/20 12/13/20 History duloxetine [Cymbalta] 30 mg PO BEDTIME 09/10/20 12/13/20 History Allergies/Adverse Reactions Allergy/AdvReac Type Severity Reaction Status Date / Time acetaminophen [From Vicodin] Allergy UNKNOWN Verified 12/13/20 11:16 alendronate sodium AdvReac Mild unknown Verified 12/13/20 11:16 [From Fosamax] pregabalin [From Lyrica] AdvReac Mild unknown Verified 12/13/20 11:16 Current Medications: Generic Name Dose Route Start Last Admin Trade Name Freq PRN Reason Stop Dose Admin Sodium Chloride 1,000 mls @ 30 mls/hr 12/16/20 09:45 12/16/20 10:21 Sodium Chloride 0.9% IV 12/17/20 09:44 30 mls/hr .Q24H ZEKE Administration Pertinent History/Comorbid Conditions* Medical History (Updated 10/11/20 @ 09:42 by Ricky Thacker MD) CVA (cerebral vascular accident) Fibromyalgia GERD (gastroesophageal reflux disease) Hypothyroidism Lumbar degenerative disc disease Mixed incontinence Osteoarthritis Osteoporosis Surgical History (Updated 10/11/20 @ 09:42 by Ricky Thacker MD) H/O dilation and curettage H/O hand surgery H/O knee surgery H/O tubal ligation History of colonoscopy 1997 History of open reduction and internal fixation (ORIF) procedure right hip History of tonsillectomy Family History (Updated 04/22/19 @ 14:28 by Shweta Hall LPN) CAD (coronary artery disease) Lung disease Cancer Sister PANCREATIC Hypertension Social History Smoking and tobacco status: current every day smoker cigarettes Packs smoked per day: 1 Alcohol intake: never Pertinent Exam Findings alert, oriented x 3 and regular rate & rhythm Recommendations Surgery/Procedure today Coding Level of Care Code Acute Mems Device Scientist for Johnny Morejon
[2020-12-16 11:19] VITALS: BP 194/85; PULSE 98; RESP 18; TEMP 36; O2SAT 100
[2020-12-16 11:30] VITALS: BP 151/63; PULSE 86; RESP 20; TEMP 35.9; O2SAT 94
[2020-12-16 11:40] VITALS: BP 161/80; PULSE 87; RESP 20; O2SAT 94
--- NOTE | 2020-12-16 13:59 | ANE.PACU2 ---
Inpatient post-anesthesia follow up: Airway intact: Yes Vital signs: Temperature 96.6 F Pulse Rate 87 Respiratory Rate 20 Blood Pressure 161/80 Pulse Oximetry 94 Oxygen Delivery Me thod Room Air Oxygen Flow Rate 4 Fraction of Inspir ed Oxygen Hydration adequate: Yes Nausea and vomiting: No Pain level: 1 Mental status: Baseline
== END 2020-12-16 12:00 | disposition home or self-care (01) ==
PROVIDERS: PCP Family Medicine; Visit Provider Surgery
PROC: 0DJ08ZZ Inspection of Upper Intestinal Tract, Via Natural or Artificial Opening Endoscopic (ICD-10-PCS; CPT 43235; principal; 2020-12-16 10:45)
DX: R13.10 Dysphagia, unspecified (principal); K29.70 Gastritis, unspecified, without bleeding; Z86.73 Personal history of transient ischemic attack (TIA), and cerebral infarction without residual deficits; M79.7 Fibromyalgia; K21.9 Gastro-esophageal reflux disease without esophagitis; E03.9 Hypothyroidism, unspecified; M51.36 Other intervertebral disc degeneration, lumbar region; M81.0 Age-related osteoporosis without current pathological fracture; F17.210 Nicotine dependence, cigarettes, uncomplicated
CPT/HCPCS: 43235; 96360; J2704; J7030

== ENCOUNTER 2021-01-04 13:19 | Outpatient (CLI) | payer MEDICARE, OTHER, SELFPAY ==
--- NOTE | 2021-01-04 13:30 | XR_ITS ---
WS: [id number] Right hip, AP and frog-leg views 01/04/2021 Clinical Data: Right hip pain, H/O ORIF Comparison: Right hip, 01/15/2019. Findings: There are 4 orthopedic screws reducing a right femoral neck fracture. There is severe osteoarthritic change of the right hip with sclerosis on both sides of the joint space and severe narrowing. There a re osteophytic spurs of the femoral head and of the acetabular lip. The right SI joint and pubic symphysis are unremarkable. There is fecal material in the rectum. XR/XR hip RT 2-3V wo/w pel* [id number] Impression: 1 severe osteoarthritis of the right hip. 2. Internal fixation of old right femoral neck fracture. Tonnis classification: grade 3: large cysts in femoral head/acetabulum or joint space obliteration/severe narrowing or severe femoral head deformity vs AVN
== END 2021-01-04 13:20 | disposition home or self-care (01) ==
PROVIDERS: PCP Family Medicine; Visit Provider Family Medicine
DX: M16.11 Unilateral primary osteoarthritis, right hip (principal)
CPT/HCPCS: 73502

== ENCOUNTER → 2021-01-17 13:29 | Outpatient (BNVA) | payer MEDICARE, OTHER, SELFPAY | PROVIDERS: PCP Family Medicine; Visit Provider Family Medicine | DX: I65.23 Occlusion and stenosis of bilateral carotid arteries (principal); G56.31 Lesion of radial nerve, right upper limb | CPT/HCPCS: 80053; 80061 ==

== ENCOUNTER 2021-02-08 12:24 | Outpatient (CLI) | payer MEDICARE, OTHER, SELFPAY ==
[2021-02-08 12:37] VITALS: BP 170/79; PULSE 99; RESP 18; TEMP 36.5; O2SAT 98
[2021-02-08] MEDS: denosumab 60 mg SDV SUBCUT (13:10)
[2021-02-08 13:17] VITALS: BP 164/74; PULSE 98; RESP 18; TEMP 36.6; O2SAT 99
== END 2021-02-08 12:25 | disposition home or self-care (01) ==
LOC: ONCMED 12:27
PROVIDERS: PCP Family Medicine; Referring Provider Family Medicine; Visit Provider Family Medicine
DX: M81.0 Age-related osteoporosis without current pathological fracture (principal)
CPT/HCPCS: 96372; J0897

== ENCOUNTER → 2021-05-23 15:32 | Outpatient (BNVA) | payer MEDICARE, OTHER, SELFPAY | PROVIDERS: PCP Family Medicine; Visit Provider Family Medicine | DX: L89.892 Pressure ulcer of other site, stage 2 (principal) | CPT/HCPCS: 73630; 87070; 87075; 87077; 87184; 87205 ==

== ENCOUNTER 2021-05-30 13:59 | Outpatient (CLI) | payer MEDICARE, OTHER, SELFPAY | END 2021-05-30 14:00 | disposition home or self-care (01) | LOC: WOUND 14:00 | PROVIDERS: PCP Family Medicine; Visit Provider Thoracic Surgery (Cardiothoracic Vascular Surgery) | DX: L97.511 Non-pressure chronic ulcer of other part of right foot limited to breakdown of skin (principal); I89.0 Lymphedema, not elsewhere classified; F17.210 Nicotine dependence, cigarettes, uncomplicated | CPT/HCPCS: 97597; 99213; A6219 ==

== ENCOUNTER 2021-06-06 14:06 | Outpatient (CLI) | payer MEDICARE, OTHER, SELFPAY | END 2021-06-06 14:07 | disposition home or self-care (01) | LOC: WOUND 14:14 | PROVIDERS: PCP Family Medicine; Visit Provider Thoracic Surgery (Cardiothoracic Vascular Surgery) | DX: L97.411 Non-pressure chronic ulcer of right heel and midfoot limited to breakdown of skin (principal); F17.210 Nicotine dependence, cigarettes, uncomplicated | CPT/HCPCS: 97597 ==

== ENCOUNTER 2021-06-13 13:22 | Outpatient (CLI) | payer MEDICARE, OTHER, SELFPAY | END 2021-06-13 13:23 | disposition home or self-care (01) | LOC: WOUND 13:23 | PROVIDERS: PCP Family Medicine; Visit Provider Thoracic Surgery (Cardiothoracic Vascular Surgery) | DX: L97.511 Non-pressure chronic ulcer of other part of right foot limited to breakdown of skin (principal); F17.210 Nicotine dependence, cigarettes, uncomplicated; I96 Gangrene, not elsewhere classified | CPT/HCPCS: 97597 ==

== ENCOUNTER 2021-06-17 14:08 | Outpatient (CLI) | payer MEDICARE, OTHER, SELFPAY | END 2021-06-17 14:09 | disposition home or self-care (01) | LOC: WOUND 14:10 | PROVIDERS: PCP Family Medicine; Visit Provider Surgery | DX: I96 Gangrene, not elsewhere classified (principal); L97.511 Non-pressure chronic ulcer of other part of right foot limited to breakdown of skin; F17.210 Nicotine dependence, cigarettes, uncomplicated | CPT/HCPCS: 11042 ==

== ENCOUNTER 2021-06-20 13:28 | Outpatient (CLI) | payer MEDICARE, OTHER, SELFPAY | END 2021-06-20 13:29 | disposition home or self-care (01) | LOC: WOUND 13:29 | PROVIDERS: PCP Family Medicine; Visit Provider Thoracic Surgery (Cardiothoracic Vascular Surgery) | DX: L97.511 Non-pressure chronic ulcer of other part of right foot limited to breakdown of skin (principal); I96 Gangrene, not elsewhere classified; F17.210 Nicotine dependence, cigarettes, uncomplicated | CPT/HCPCS: 11042 ==

== ENCOUNTER → 2021-06-27 13:17 | Outpatient (BNVA) | payer MEDICARE, OTHER, SELFPAY | PROVIDERS: PCP Family Medicine; Visit Provider Nurse Practitioner Family | DX: L97.511 Non-pressure chronic ulcer of other part of right foot limited to breakdown of skin (principal); I96 Gangrene, not elsewhere classified; F17.210 Nicotine dependence, cigarettes, uncomplicated | CPT/HCPCS: 11042; A6250; A6252 ==

== ENCOUNTER 2021-07-02 14:16 | Emergency (ER) | payer MEDICARE, OTHER, SELFPAY ==
[2021-07-02 14:22] VITALS: BMI 21.9
--- NOTE | 2021-07-02 14:25 | CTR_ITS ---
PROCEDURE INFORMATION: Exam: CT Head Without Contrast Exam date and time: 07/02/2021 3:11 PM Age: 81 years old Clinical indication: Injury or trauma; Fall; Blunt trauma (contusions or hematomas); Consciousness not specified TECHNIQUE: Imaging protocol: Computed tomography of the head without contrast. Radiation optimization: All CT scans at this facility use at least one of these dose optimization techniques: automated exposure control; mA and/or kV adjustment per patient size (includes targeted exams where dose is matched to clinical indication); or iterative reconstruction. COMPARISON: CT neck w con* [id number] 09/10/2020 3:21 PM RADIATION DOSE METRICS: Total DLP (mGy-cm): 817.41 FINDINGS: Brain: Large amount of diffuse white matter disease likely reflecting chronic microvascular ischemic changes. Cerebral ventricles: No ventriculomegaly. Paranasal sinuses: Visualized sinuses are unremarkable. No fluid levels. Mastoid air cells: Visualized mastoid air cells are well aerated. Bones/joints: Unremarkable. No acute fracture. Soft tissues: Unremarkable. CT/CT head wo con* [id number] IMPRESSION: Negative for intracranial hemorrhage or mass effect.
--- NOTE | 2021-07-02 14:25 | ED_ITS ---
HPI - Fall General: Chief Complaint: Fall Stated Complaint: HEMATOMA TO FOREHEAD S/P FALL Time Seen by Provider: 07/02/21 14:23 Source: patient Mode of arrival: EMS Limitations: no limitations History of Present Illness: 81-year-old female presents emergency room by EMS after a fall transferring from wheelchair. No loss of consciousness no other injury. MD complaint: fall Onset (ago): minute(s) Fall from: wheelchair Place fall occurred: home Loss of consciousness: None Prolonged down time: no Symptoms prior to fall: none Context: tripped/slipped Location of injury: head Associated symptoms-after fall: Reports confusion (Baseline); Denies abdominal pain, chest pain, difficulty walking, headache(s), hematuria, lightheadedness, neck pain, numbness, short of breath, vertigo or weakness Review of Systems Const: Denies: fever(s), chills, body aches, change in appetite, fatigue or malaise ENMT: Denies: throat pain, ear or mastoid pain, nasal discharge or nasal congestion Card: Denies: chest pain or lightheadedness Resp: Denies: dyspnea, productive cough or non-productive cough GI: Denies: abdominal pain : Denies: hematuria Musc: Denies: neck pain Skin/Breast: Denies: rash or pruritus Neuro: Reports: confusion (Baseline); Denies: headache(s), difficulty walking or vertigo PFSH ED PFSH: Medical History CVA (cerebral vascular accident) Fibromyalgia GERD (gastroesophageal reflux disease) Hypothyroidism Lumbar degenerative disc disease Mixed incontinence Osteoarthritis Osteoporosis Surgical History H/O dilation and curettage H/O esophagogastroduodenoscopy (12/16/20) H/O hand surgery H/O knee surgery H/O tubal ligation History of colonoscopy 1997 History of open reduction and internal fixation (ORIF) procedure right hip History of tonsillectomy Family History Sister Cancer PANCREATIC Other CAD (coronary artery disease) Hypertension Lung disease Social History Smoking and tobacco status: current every day smoker cigarettes Packs smoked per day: 1 Alcohol intake: never Physical Exam Const: GENERAL APPEARANCE: cooperative and comfortable ORIENTATION/CONSCIOUSNESS: Yes awake HENMT: COMMON NORMALS: normocephalic, hearing grossly normal bilaterally, external ears normal, EAC's normal, TM's normal bilaterally, Normal nasal mucous membranes and turbinates present, moist oral mucous membranes and oropharynx normal HEAD & SCALP: normocephalic NOSE: Normal nasal mucous membranes and turbinates present EXTERNAL EAR: Yes external ears normal EXTERNAL AUDITORY CANAL: EAC's normal TYMPANIC MEMBRANE: TM's normal bilaterally OTHER: Hematoma right frontal forehead no drainage no laceration Eye: COMMON NORMALS: Equal, round and reactive pupils present, EOMs intact bilaterally, conjunctivae normal and no scleral icterus CONJUNCTIVA: Yes conjunctivae normal PUPIL: Yes Equal, round and reactive pupils present Neck/C-Spine: COMMON NORMALS: full ROM, no lymphadenopathy, supple and no JVD Resp: COMMON NORMALS: normal respiratory effort, No retractions, No use of accessory muscles and clear to auscultation bilaterally AUSCULTATION: clear to auscultation bilaterally Cardio: COMMON NORMALS: no JVD, regular rate, regular rhythm and No murmurs present (Cardio) RATE: regular rate RHYTHM: regular rhythm GI: COMMON NORMALS: Soft to palpation and No hepatosplenomegaly present AUSCULTATION: Yes normoactive bowel sounds PALPATION: Yes Soft to palpation, No Tenderness to palpation present (GI), No Guarding due to palpation present (GI) and Yes No hepatosplenomegaly present Extremity: COMMON NORMALS: normal to inspection, capillary refill normal, no clubbing, cyanosis or edema, no calf tenderness and no pedal edema Skin: COMMON NORMALS: no rashes or lesions noted GENERAL SKIN EXAM: no rashes or lesions noted Course Vital Signs: Vital signs: Vital Signs Pulse Rate 93 07/02/21 16:01 Respiratory Rate 16 07/02/21 16:01 Blood Pressure 165/86 07/02/21 16:01 Pulse Oximetry 96 07/02/21 16:01 MDM - Fall Medical Decision Making Labs and imaging reviewed. Patient discharged home follow-up as needed Medical Records I reviewed the patient's medical records. Lab Data I reviewed the patient's lab results. Radiology Impressions Head CT 07/02/21 14:25 IMPRESSION: Negative for intracranial hemorrhage or mass effect. Discharge Plan Discharge Patient Disposition: Home Clinical Impression: Fall, Weakness Condition: Stable Prescriptions: No Action hydrocodone-acetaminophen 5-325 mg tablet 0.5 - 1 tab PO BID PRN (Reason: Pain) 0RF tramadol 50 mg tablet 50 mg PO BID PRN0RF nystatin 100,000 unit/gram cream 1 applic topical BID Qty: 30 2RF Rx Instructions: Apply to affected area sulfamethoxazole-trimethoprim [Bactrim DS] 800-160 mg tablet 1 tab PO Q12H Qty: 14 0RF acetaminophen [Tylenol] 325 mg tablet 325 - 650 mg PO PRN Qty: 90 2RF amitriptyline 50 mg tablet 100 mg PO BEDTIME 90 Days Qty: 180 1RF atorvastatin 40 mg tablet 40 mg PO DAILY 90 Days Qty: 90 2RF baclofen 5 mg tablet 5 mg PO TID Qty: 270 2RF Plavix 75 mg tablet 75 mg PO QAM 90 Days Qty: 90 2RF Prolia 60 mg/mL syringe 60 mg SUBCUT .COMPLEX Qty: 1 0RF Rx Instructions: 60 mg SUBCUT every six months; duloxetine [Cymbalta] 30 mg capsule,delayed release(DR/EC) 30 mg PO BEDTIME 90 Days Qty: 90 2RF levofloxacin 500 mg tablet 500 mg PO DAILY 90 Days Qty: 90 0RF levothyroxine 50 mcg tablet 50 mcg PO QAM 90 Days Qty: 90 2RF Reglan 5 mg tablet 5 mg PO BID PRN (Reason: nausea and vomiting) 90 Days Qty: 180 1RF oxybutynin chloride 5 mg tablet 5 mg PO QAM 90 Days Qty: 90 2RF Protonix 40 mg tablet,delayed release (DR/EC) 40 mg PO BID 90 Days Qty: 180 3RF Discharge Orders: Discharge ED (Routine); Ordered 07/02/21 Ordered By: Brady Infante Referrals: Khloe Arthur DO [Primary Care Provider] - Patient Instructions: Opioid Safety Activity Restrictions/Additional Instructions: CT of the head was negative. Recommend you follow-up with your primary care do ctor sometime in the next coming week to reevaluate level of care required for you. Coding Level of Care Code ED Institution Director for Johnny Morejon
[2021-07-02 16:01] VITALS: BP 165/86; PULSE 93; RESP 16; O2SAT 96
== END 2021-07-02 16:39 | disposition home or self-care (01) ==
PROVIDERS: Emergency Provider Family Medicine; PCP Family Medicine
DX: R53.1 Weakness (principal); S00.83XA Contusion of other part of head, initial encounter; W05.0XXA Fall from non-moving wheelchair, initial encounter; Y92.009 Unspecified place in unspecified non-institutional (private) residence as the place of occurrence of the external cause; Z86.73 Personal history of transient ischemic attack (TIA), and cerebral infarction without residual deficits; F17.210 Nicotine dependence, cigarettes, uncomplicated; Z79.02 Long term (current) use of antithrombotics/antiplatelets
CPT/HCPCS: 70450; 99283

== ENCOUNTER → 2021-07-04 13:39 | Outpatient (BNVA) | payer MEDICARE, OTHER, SELFPAY | PROVIDERS: PCP Family Medicine; Visit Provider Thoracic Surgery (Cardiothoracic Vascular Surgery) | DX: I96 Gangrene, not elsewhere classified (principal); L97.511 Non-pressure chronic ulcer of other part of right foot limited to breakdown of skin; F17.210 Nicotine dependence, cigarettes, uncomplicated | CPT/HCPCS: 11042; A6250 ==

== ENCOUNTER → 2021-07-11 13:41 | Outpatient (BNVA) | payer MEDICARE, OTHER, SELFPAY | PROVIDERS: PCP Family Medicine; Visit Provider Thoracic Surgery (Cardiothoracic Vascular Surgery) | DX: I96 Gangrene, not elsewhere classified (principal); L97.511 Non-pressure chronic ulcer of other part of right foot limited to breakdown of skin; F17.210 Nicotine dependence, cigarettes, uncomplicated | CPT/HCPCS: 11042; A6212; A6250 ==

== ENCOUNTER → 2021-07-13 14:13 | Outpatient (BNVA) | payer MEDICARE, OTHER, SELFPAY | PROVIDERS: PCP Family Medicine; Visit Provider Family Medicine | DX: B00.89 Other herpesviral infection (principal); M81.0 Age-related osteoporosis without current pathological fracture; E03.9 Hypothyroidism, unspecified | CPT/HCPCS: 80053; 83735; 84443 ==

== ENCOUNTER → 2021-07-18 13:25 | Outpatient (BNVA) | payer MEDICARE, OTHER, SELFPAY | PROVIDERS: PCP Family Medicine; Visit Provider Thoracic Surgery (Cardiothoracic Vascular Surgery) | DX: I96 Gangrene, not elsewhere classified (principal); L97.511 Non-pressure chronic ulcer of other part of right foot limited to breakdown of skin; F17.210 Nicotine dependence, cigarettes, uncomplicated | CPT/HCPCS: 11043; A6250 ==

== ENCOUNTER → 2021-07-25 13:48 | Outpatient (BNVA) | payer MEDICARE, OTHER, SELFPAY | PROVIDERS: PCP Family Medicine; Visit Provider Thoracic Surgery (Cardiothoracic Vascular Surgery) | DX: L97.511 Non-pressure chronic ulcer of other part of right foot limited to breakdown of skin (principal); F17.210 Nicotine dependence, cigarettes, uncomplicated | CPT/HCPCS: 11043; A6250 ==

== ENCOUNTER → 2021-08-01 13:25 | Outpatient (BNVA) | payer MEDICARE, OTHER, SELFPAY | PROVIDERS: PCP Family Medicine; Visit Provider Thoracic Surgery (Cardiothoracic Vascular Surgery) | DX: L97.511 Non-pressure chronic ulcer of other part of right foot limited to breakdown of skin (principal); L89.311 Pressure ulcer of right buttock, stage 1; F17.210 Nicotine dependence, cigarettes, uncomplicated | CPT/HCPCS: 15275; 97597; A6206; A6212; A6250; Q4196 ==

== ENCOUNTER → 2021-08-08 13:56 | Outpatient (BNVA) | payer MEDICARE, OTHER, SELFPAY | PROVIDERS: PCP Family Medicine; Visit Provider Thoracic Surgery (Cardiothoracic Vascular Surgery) | DX: I96 Gangrene, not elsewhere classified (principal); L97.512 Non-pressure chronic ulcer of other part of right foot with fat layer exposed; L89.311 Pressure ulcer of right buttock, stage 1; F17.210 Nicotine dependence, cigarettes, uncomplicated | CPT/HCPCS: 11043; 97597; A6212; A6250 ==

== ENCOUNTER 2021-08-10 13:09 | Outpatient (CLI) | payer MEDICARE, OTHER, SELFPAY ==
[2021-08-10 14:04] LABS: Albumin Level 3.3 g/dL (3.5-5.2); Calcium 8.9 mg/dL (8.5-10.5)
[2021-08-10 14:17] LABS: 25 Hydroxy Vitamin D 33 ng/mL (30-100)
[2021-08-10 14:38] VITALS: BP 150/80; PULSE 64; RESP 18; TEMP 36.8; O2SAT 97
[2021-08-10] MEDS: denosumab 60 mg SDV SUBCUT (14:45)
[2021-08-10 14:51] VITALS: BP 156/83; PULSE 102; RESP 18; TEMP 36.8; O2SAT 98
--- NOTE | 2021-08-10 15:22 | PC.NURSE ---
Per Dr. Arthur's office, okay to proceed with Prolia injection. Pt had voiced some concern about bone loss in her jaw per her dental visit in 2020. dh
== END 2021-08-10 13:10 | disposition home or self-care (01) ==
LOC: ONCMED 13:13
PROVIDERS: PCP Family Medicine; Visit Provider Family Medicine
DX: M81.0 Age-related osteoporosis without current pathological fracture (principal)
CPT/HCPCS: 36415; 82040; 82306; 82310; 82565; 96372; J0897

== ENCOUNTER → 2021-08-15 13:39 | Outpatient (BNVA) | payer MEDICARE, OTHER, SELFPAY | PROVIDERS: PCP Family Medicine; Visit Provider Thoracic Surgery (Cardiothoracic Vascular Surgery) | DX: I96 Gangrene, not elsewhere classified (principal); L97.512 Non-pressure chronic ulcer of other part of right foot with fat layer exposed; L89.312 Pressure ulcer of right buttock, stage 2 | CPT/HCPCS: 11043; 97597 ==

== ENCOUNTER → 2021-08-22 14:10 | Outpatient (BNVA) | payer MEDICARE, OTHER, SELFPAY | PROVIDERS: PCP Family Medicine; Visit Provider Thoracic Surgery (Cardiothoracic Vascular Surgery) | DX: I96 Gangrene, not elsewhere classified (principal); L97.512 Non-pressure chronic ulcer of other part of right foot with fat layer exposed; L89.312 Pressure ulcer of right buttock, stage 2 | CPT/HCPCS: 11042; 97597 ==

== ENCOUNTER → 2021-08-31 14:09 | Outpatient (BNVA) | payer MEDICARE, OTHER, SELFPAY | PROVIDERS: PCP Family Medicine; Visit Provider Thoracic Surgery (Cardiothoracic Vascular Surgery) | DX: L97.512 Non-pressure chronic ulcer of other part of right foot with fat layer exposed (principal); L89.312 Pressure ulcer of right buttock, stage 2 | CPT/HCPCS: 11043; 97597 ==

== ENCOUNTER 2021-09-05 20:23 | Inpatient (IN) | payer MEDICARE, OTHER, SELFPAY ==
[2021-09-05 20:49] VITALS: BP 137/69; PULSE 125; RESP 20; TEMP 36.7; O2SAT 95; BMI 15.2
--- NOTE | 2021-09-05 22:24 | ED_ITS ---
HPI - Nausea/Vomiting/Diarrhea General: Chief complaint: Nausea/Vomiting/Diarrhea Stated complaint: n/v Time Seen by Provider: 09/05/21 22:23 PFSH ED PFSH: Medical History CVA (cerebral vascular accident) Fibromyalgia GERD (gastroesophageal reflux disease) Hypothyroidism Lumbar degenerative disc disease Mixed incontinence Osteoarthritis Osteoporosis Surgical History H/O dilation and curettage H/O esophagogastroduodenoscopy (12/16/20) H/O hand surgery H/O knee surgery H/O tubal ligation History of colonoscopy 1997 History of open reduction and internal fixation (ORIF) procedure right hip History of tonsillectomy Family History Sister Cancer PANCREATIC Other CAD (coronary artery disease) Hypertension Lung disease Social History Smoking and tobacco status: never smoked Alcohol intake: never Course Vital Signs: Vital signs: Vital Signs Temperature 98.1 F 09/05/21 20:49 Pulse Rate 125 H 09/05/21 20:49 Respiratory Rate 20 H 09/05/21 20:49 Blood Pressure 137/69 09/05/21 20:49 Pulse Oximetry 95 09/05/21 20:49 Discharge Plan Discharge Condition: Stable Prescriptions: No Action hydrocodone-acetaminophen 5-325 mg tablet 0.5 - 1 tab PO BID PRN (Reason: Pain) 0RF tramadol 50 mg tablet 50 mg PO BID PRN0RF nystatin 100,000 unit/gram cream 1 applic topical BID Qty: 30 2RF Rx Instructions: Apply to affected area valacyclovir 500 mg tablet 500 mg PO BID 5 Days Qty: 10 0RF sulfamethoxazole-trimethoprim [Bactrim DS] 800-160 mg tablet 1 tab PO Q12H Qty: 14 0RF acetaminophen [Tylenol] 325 mg tablet 325 - 650 mg PO PRN Qty: 90 2RF amitriptyline 50 mg tablet 100 mg PO BEDTIME 90 Days Qty: 180 1RF atorvastatin 40 mg tablet 40 mg PO DAILY 90 Days Qty: 90 2RF baclofen 5 mg tablet 5 mg PO TID Qty: 270 2RF Plavix 75 mg tablet 75 mg PO QAM 90 Days Qty: 90 2RF Prolia 60 mg/mL syringe 60 mg SUBCUT .COMPLEX Qty: 1 0RF Rx Instructions: 60 mg SUBCUT every six months; duloxetine [Cymbalta] 30 mg capsule,delayed release(DR/EC) 30 mg PO BEDTIME 90 Days Qty: 90 2RF levofloxacin 500 mg tablet 500 mg PO DAILY 90 Days Qty: 90 0RF Reglan 5 mg tablet 5 mg PO BID PRN (Reason: nausea and vomiting) 90 Days Qty: 180 1RF oxybutynin chloride 5 mg tablet 5 mg PO QAM 90 Days Qty: 90 2RF Protonix 40 mg tablet,delayed release (DR/EC) 40 mg PO BID 90 Days Qty: 180 3RF pentoxifylline 400 mg tablet extended release 400 mg PO TID Qty: 90 4RF Rx Instructions: must administer with a meal/food levothyroxine 50 mcg tablet 50 mcg PO QAM 90 Days Qty: 90 1RF cholecalciferol (vitamin D3) 1,250 mcg (50,000 unit) capsule 1,250 mcg PO .weekly 84 Days Qty: 14 0RF calcium carbonate [Calcium 600] 600 mg calcium (1,500 mg) tablet 1,200 mg PO DAILY Qty: 120 0RF Referrals: Khloe Arthur DO [Primary Care Provider] - Coding Level of Care Code ED Windows Software Engineer for Ettag Jean-Pierre
--- NOTE | 2021-09-05 22:36 | ED_ITS ---
HPI - Nausea/Vomiting/Diarrhea General: Chief complaint: Nausea/Vomiting/Diarrhea Stated complaint: n/v Time Seen by Provider: 09/05/21 22:23 History of Present Illness: Ms. Bennett is an 81-year-old lady with history of GERD, contracture of right knee, history of AAA, history of gastroparesis presenting to the emergency department due to vomiting with concern for esophageal spasms. She reported onset of symptoms yesterday morning and was subacute without known provoking factor. She describes the vomiting of any oral intake without associated nausea. She denies associated diarrhea, chronic constipation. Inability to take medications has resulted in increased pain all over. Denies any new injury. Overall intensity symptoms has been worsening. Intensity is moderate to severe. Patient has had endoscopy before however no motility studies apparently. She does occasionally have associated left upper quadrant pain though not specifically associated with worsening symptoms. No other specific changes in health, exacerbating, or alleviating factors identified. Onset (ago): day(s) Description of vomiting: food contents Associated nausea: No Associated abdominal pain: No Associated symtoms: Denies nausea Review of Systems General: Reports: 10 or more systems reviewed and unremarkable except in HPI and below GI: Denies: nausea PFSH ED PFSH: Medical History CVA (cerebral vascular accident) Fibromyalgia GERD (gastroesophageal reflux disease) Hypothyroidism Lumbar degenerative disc disease Mixed incontinence Osteoarthritis Osteoporosis Surgical History H/O dilation and curettage H/O esophagogastroduodenoscopy (12/16/20) H/O hand surgery H/O knee surgery H/O tubal ligation History of colonoscopy 1997 History of open reduction and internal fixation (ORIF) procedure right hip History of tonsillectomy Family History Sister Cancer PANCREATIC Other CAD (coronary artery disease) Hypertension Lung disease Social History Smoking and tobacco status: never smoked Alcohol intake: never Physical Exam Const: COMMON NORMALS: alert GENERAL APPEARANCE: cooperative, well developed and frail appearing HENMT: COMMON NORMALS: normocephalic and atraumatic HEAD & SCALP: normocephalic and atraumatic Eye: COMMON NORMALS: conjunctivae normal CONJUNCTIVA: Yes conjunctivae normal SCLERA: sclerae normal Neck/C-Spine: COMMON NORMALS: supple GENERAL: Yes trachea midline Resp: COMMON NORMALS: normal respiratory effort and clear to auscultation bilaterally EFFORT & INSPECTION: Yes able to speak in complete sentences AUSCULTATION: clear to auscultation bilaterally Cardio: COMMON NORMALS: regular rhythm RATE: tachycardic RHYTHM: regular rhythm GI: COMMON NORMALS: Soft to palpation PALPATION: Yes Soft to palpation and No Tenderness to palpation present (GI) PERCUSSION: normal to percussion Extremity: NARRATIVE EXTREMITY EXAM: Baseline right lower extremity contracture. Chronic wound right foot laterally at the forefoot. There is some edema and mild surrounding erythema though no significant purulence. GENERAL: Yes normal exam except as noted and No edema Neuro: COMMON NORMALS: moves all extremities SENSORIUM/ORIENTATION: Yes alert and No Orientation impaired Psych: COMMON NORMALS: mental status grossly normal and Normal thought process present THOUGHT PROCESS: Normal thought process present Course ED course: - Patient was seen and evaluated by me at bedside - Patient placed on cardiac monitors, IV access obtained - Initial evaluation notable for exam as above, ill and frail appearing - Labs and xrays personally interpreted by me. EKG notable for sinus tachycardia with nonspecific ST segment abnormalities, no STEMI. -Antiemetic given - Labs notable for significant leukocytosis, normal hemoglobin. Metabolic panel with decreased bicarb and evidence of dehydration - Imaging notable for emphysema and CAD, gallstones noted as of cholecystitis on CT. Given marked leukocytosis without clear etiology ultrasound felt be warranted which was negative for cholecystitis. Foot x-ray with periosteal reaction. Source of infection not identified until final x-ray read for sepsis treatment as clinical exam less concerning as a source of infection. -Antibiotics given - Upon serial reexamination after treatment the patient was mild improved - Based on patient history, evaluation, and testing as interpreted the most likely cause of the patient's condition is significant leukocytosis and SIRS of unclear etiology, possibly due to foot though formal read still pending at time of mission - The results of ED evaluation were discussed with the patient including plan for admission due to requirement for level of care not available if discharged to prevent significant worsening/deterioration. - Admitting service was contacted and Dr Prajapati with the hospitalist service agreed to admit the patient - Patient was admitted without further deterioration or significant events. Note: Click bubbles or prepopulated mckeon in note writing are used for assistance with data collection and billing and are inherently more limited than narrative and other text portions of this note. Please use narrative for additional clinical history and defer to narrative/free test for any case of contradictory information. If information appears in only free text or click bubble it should be considered present or absent as reported. Please contact note writer technical publications for clarifications of clinical information or contradictory information. MDM is a brief summary, contradictory or erroneous seeming information should be clarified and full note should be reviewed. Vital Signs: Vital signs: Vital Signs Temperature 98.3 F 09/16/21 11:28 Pulse Rate 99 09/16/21 14:02 Respiratory Rate 16 09/16/21 14:02 Blood Pressure 102/53 09/16/21 11:28 Pulse Oximetry 90 09/16/21 14:02 MDM - Nausea/Vomiting/Diarrhea Medical Decision Making 81-year-old lady with complex past medical history presenting due to nausea and vomiting as well as associated discomfort. Found to have initial tachycardia and significant leukocytosis. Initially unclear etiology, patient does have chronic wound which may be source. Treated with antibiotics and admitted for further investigation and definitive management. Medical Records I reviewed the patient's medical records. Lab Data I reviewed the patient's lab results. : 09/16/21 04:34 09/16/21 04:34 Radiology Impressions Chest/Abdomen/Pelvis CT 09/05/21 23:21 IMPRESSION: 1. Severe centrilobular emphysema. 2. Severe calcified coronary artery disease. 3. Chronic appearing 20% T10 compression fracture involving the superior vertebral body endplate. IMPRESSION: Multiple gallstones within the gallbladder. COMMENTS: Consistent with the [place]'s Incidental Findings Committee white paper (J Am Franklyn Radiol 2018): Any incidental renal lesion less than 1 cm or classified as too small to characterize, or any incidental cystic renal lesion characterized as simple-appearing, is likely benign. No follow-up imaging is recommended for these lesions per consensus recommendations based on imaging criteria. ADDENDUM: 09/06/21 0114 History: 33,000 white blood cell count with neutrophils. Abdominal impression: 2. 7.5 cm simple cyst arising from the left kidney between the kidney and spleen. This measures 9 Hounsfield units consistent with simple cyst. THIS REPORT CONTAINS FINDINGS THAT MAY BE CRITICAL TO PATIENT CARE. The findings were verbally communicated via telephone conference with Honorio Eaton at 1:12 AM CDT on 09/06/2021. The findings were acknowledged and understood. Abdomen Ultrasound 09/06/21 01:31 IMPRESSION: 1. Cholelithiasis without evidence for acute cholecystitis. 2. Bilateral renal simple appearing cysts, larger on the left. Findings were discussed with [employer] Kj Mcmanus at 09/06/2021 4:49 AM CDT. Foot MRI 09/07/21 10:00 IMPRESSION: 1. Osteomyelitis involving the head of the 5th metatarsal extending across the joint into the base of the 5th proximal phalanx as described above. Osteomyelitis extends into the mid shaft of the 5th metatarsal. Foot X-Ray 09/11/21 10:43 IMPRESSION: 1. There is some contour irregularity of the 5th metatarsal at the amputation site and osteomyelitis cannot be excluded. 2. Generalized osteopenia. 3. There is edema and thickening of the soft tissues surrounding the foot most prominent adjacent to the amputation site. Chest CTA 09/12/21 13:28 IMPRESSION: 1. No pulmonary embolism. 2. New small bilateral pleural effusions with bibasilar atelectasis at the lung bases. 3. Severe emphysema. 4. Pulmonary hypertension. 5. Small indeterminate bilateral hilar lymph nodes. Probably reactive. Chest X-Ray 09/14/21 11:36 IMPRESSION: 1. There are bilateral pleural effusions. 2. COPD morphology of the chest. 3. Hazy bibasilar opacities are nonspecific and can be seen with pulmonary edema and/or pneumonia. KUB X-Ray 09/15/21 11:08 Impression: Large amount of feces in the colon. Laboratory Results WBC 36.4 10^3/uL (4.0-10.0) H* 09/05/21 22:37 RBC 4.45 10^6/uL (4.1-5.3) 09/05/21 22:37 Hgb 13.5 g/dL (11.5-15.3) 09/05/21 22:37 Hct 41.6 % (37.0-47.0) 09/05/21 22:37 MCV 93.5 fl (81-99) 09/05/21 22:37 MCH 30.3 pg (28.0-34.0) 09/05/21 22:37 MCHC 32.5 g/dL (30.0-36.0) 09/05/21 22:37 RDW 16.2 % (12.1-15.1) H 09/05/21 22:37 Plt Count 353 10^3/cmm (130-400) 09/05/21 22:37 MPV 10.9 fL (7.4-10.4) H 09/05/21 22:37 Neut % (Auto) 92.1 % 09/05/21 22:37 Lymph % (Auto) 2.1 % 09/05/21 22:37 [place] % (Auto) 4.1 % 09/05/21 22:37 Eos % (Auto) 0.0 % 09/05/21 22:37 Baso % (Auto) 0.3 % 09/05/21 22:37 Neut # (Auto) 33.48 10^3/uL (1.8-7.7) H 09/05/21 22:37 Lymph # (Auto) 0.8 10^3/uL (0.8-4.8) 09/05/21 22:37 [place] # (Auto) 1.5 10^3/uL (0.2-0.9) H 09/05/21 22:37 Eos # (Auto) 0.0 10^3/uL (0.0-0.8) 09/05/21 22:37 Baso # (Auto) 0.1 10^3/uL (0.0-0.1) 09/05/21 22:37 Nucleated RBC % (auto) 0 % 09/05/21 22:37 Nucleated RBCs # 0.0 /100WBC 09/05/21 22:37 ESR 32 mm/hr (0-15) H 09/05/21 22:37 Sodium 140 mmol/L (136-145) 09/05/21 23:30 Potassium 3.8 mmol/L (3.5-5.1) 09/05/21 23:30 Chloride 103 mmol/L (98-107) 09/05/21 23:30 Carbon Dioxide 20 mmol/L (22-29) L 09/05/21 23:30 Anion Gap 20.8 (5-19) H 09/05/21 23:30 BUN 27 mg/dL (8-23) H 09/05/21 23:30 Creatinine 0.8 mg/dL (0.5-0.9) 09/05/21 23:30 GFR Calculation Not Reportable 09/05/21 23:30 Glucose 83 mg/dL (65-115) 09/05/21 23:30 Calculated Osmolality 294 mOsm/kg (285-295) 09/05/21 23:30 Lactic Acid 1.2 mmol/L (0.5-2.2) 09/05/21 23:30 Calcium 8.6 mg/dL (8.5-10.5) 09/05/21 23:30 Total Bilirubin 0.7 mg/dL (0.15-1.2) 09/05/21 23:30 AST 12 U/L (0-32) 09/05/21 23:30 ALT 8 U/L (0-33) 09/05/21 23:30 Alkaline Phosphatase 110 IU/L (35-105) H 09/05/21 23:30 Troponin T Baseline 55 ng/L (0-10) H 09/05/21 23:30 Troponin T 120 Minute 57.95 ng/L (0-10) H 09/06/21 04:17 Delta Troponin T 2.95 ABS# (0-10) 09/06/21 04:17 Troponin T Hi Sens 6Hr 60.44 ng/L (0-10) H 09/06/21 05:51 Troponin T Hi Sens 6Hr Delta 5.44 ng/L (0-12) 09/06/21 05:51 C-Reactive Protein 56.9 mg/L (0.0-4.9) H 09/05/21 23:30 Total Protein 6.5 g/dL (6.6-8.7) L 09/05/21 23:30 Albumin 3.4 g/dL (3.5-5.2) L 09/05/21 23:30 Globulin 3.1 g/dL (1.3-4.6) 09/05/21 23:30 Lipase 7 U/L (13-60) L 09/05/21 23:30 Urine Color Yellow (Yellow) 09/06/21 02:00 Urine Appearance Sl hazy (CLEAR) 09/06/21 02:00 Urine pH 6 (5-7) 09/06/21 02:00 Ur Specific [employer] 1.010 (1.005-1.030) 09/06/21 02:00 Urine Protein Neg (Negative) 09/06/21 02:00 Urine Glucose (UA) Norm (Normal) 09/06/21 02:00 Urine Ketones 1+ (Negative) H 09/06/21 02:00 Urine Blood Trace (Negative) H 09/06/21 02:00 Urine Nitrate Negative (Negative) 09/06/21 02:00 Urine Bilirubin Neg (Negative) 09/06/21 02:00 Urine Urobilinogen Norm mg/dL (Negative) 09/06/21 02:00 Ur Leukocyte Esterase 2+ (Negative) H 09/06/21 02:00 Urine RBC 0-4 /hpf (0-2) H 09/06/21 02:00 Urine WBC 25-40 /hpf (0-5) H 09/06/21 02:00 Ur Squamous Epith Cells 5-10 /hpf (0-5) H 09/06/21 02:00 Amorphous Sediment Not Reportable 09/06/21 02:00 Urine Bacteria 1+ /hpf (NONE) H 09/06/21 02:00 Urine Mucus Trace /hpf 09/06/21 02:00 Lymphoma Panel See report 09/05/21 22:40 Immunophenotype Interp See report 09/05/21 22:40 Discharge Plan Discharge Patient Disposition: Admitted As Inpatient Admit Provider: Yaw Prajapati Clinical Impression: Vomiting, SIRS (systemic inflammatory response syndrome) Condition: Stable Discharge Diet: Full LIquid Discharge Activity: Wheelchair as instructed Coding Level of Care Code ED Insurance Operations Rep for Chg Fwd Exam Comprehensive
[2021-09-05 22:53] LABS: Basophils # 0.1 10^3/uL (0.0-0.1); Basophils % 0.3 %; Hematocrit 41.6 % (37.0-47.0); Hemoglobin 13.5 g/dL (11.5-15.3); Lymphocytes # 0.8 10^3/uL (0.8-4.8); Lymphocytes % 2.1 %; Mean Corpuscular HGB Conc 32.5 g/dL (30.0-36.0); Mean Corpuscular Hemoglobin 30.3 pg (28.0-34.0); Mean Corpuscular Volume 93.5 fl (81-99); Mean Platelet Volume 10.9 fL (7.4-10.4); Monocytes # 1.5 10^3/uL (0.2-0.9); Monocytes % 4.1 %; Neutrophils # 33.48 10^3/uL (1.8-7.7); Neutrophils % 92.1 %; Nucleated Red Blood Cells % 0 %; Platelet Count 353 10^3/cmm (130-400); Red Blood Count 4.45 10^6/uL (4.1-5.3); Red Cell Distribution Width 16.2 % (12.1-15.1)
[2021-09-05 23:17] LABS: White Blood Count 36.4 10^3/uL (4.0-10.0)
[2021-09-05 23:18] LABS: Slide Review Slide Review Perform
--- NOTE | 2021-09-05 23:21 | CTR_ITS ---
PROCEDURE INFORMATION: Exam: CT Chest With Contrast; Diagnostic Exam date and time: 09/06/2021 12:22 AM Age: 81 years old Clinical indication: Vomiting; Cough; Additional info: Sirs, vomiting TECHNIQUE: Imaging protocol: Diagnostic computed tomography of the chest with contrast. Radiation optimization: All CT scans at this facility use at least one of these dose optimization techniques: automated exposure control; mA and/or kV adjustment per patient size (includes targeted exams where dose is matched to clinical indication); or iterative reconstruction. Contrast material: OMNI 300; Contrast volume: 55 ml; Contrast route: INTRAVENOUS (IV); COMPARISON: CT neck w con* [id number] 09/10/2020 3:21 PM RADIATION DOSE METRICS: Total DLP (mGy-cm): 1000.05 FINDINGS: Lungs: Severe centrilobular emphysema. Mild bibasilar atelectasis and/or pneumonia. Pleural spaces: Unremarkable. No pneumothorax. No pleural effusion. Heart: Severe calcified coronary artery disease. Lymph nodes: Calcified right hilar nodes and/or mediastinal nodes and/or lung granulomas consistent with old granulomatous disease. Vasculature: Calcification of the thoracic aorta and/or great vessels consistent with atherosclerotic vessel disease. Bones/joints: Chronic healed lower sternal body fracture with deformity. Mild thoracic spondylosis. Chronic appearing 20% T10 compression fracture involving the superior vertebral body endplate. Soft tissues: Unremarkable. PROCEDURE INFORMATION: Exam: CT Abdomen And Pelvis With Contrast Exam date and time: 09/06/2021 12:22 AM Age: 81 years old Clinical indication: Vomiting; Cough; Additional info: Sirs, vomiting TECHNIQUE: Imaging protocol: Computed tomography of the abdomen and pelvis with contrast. Radiation optimization: All CT scans at this facility use at least one of these dose optimization techniques: automated exposure control; mA and/or kV adjustment per patient size (includes targeted exams where dose is matched to clinical indication); or iterative reconstruction. Contrast material: OMNI 300; Contrast volume: 55 ml; Contrast route: INTRAVENOUS (IV); COMPARISON: CR XR hip RT 2-3V wo/w pel* [id number] 01/04/2021 1:29 PM RADIATION DOSE METRICS: Total DLP (mGy-cm): 1000.05 FINDINGS: Liver: Normal. No mass. Gallbladder and bile ducts: Multiple gallstones within the gallbladder. Pancreas: Normal. No ductal dilation. Spleen: Normal. No splenomegaly. Adrenal glands: Normal. No mass. Kidneys and ureters: Left renal simple cyst measuring >1.0 cm. Right renal simple cyst measuring >1.0 cm . Stomach and bowel: Unremarkable. No obstruction. No mucosal thickening. Appendix: No evidence of appendicitis. Intraperitoneal space: Unremarkable. No free air. No significant fluid collection. Vasculature: Calcification of the abdominal aorta and/or iliac arteries consistent with atherosclerotic vessel disease. Calcification of the abdominal aorta and/or iliac arteries consistent with atherosclerotic vessel disease. Lymph nodes: Unremarkable. No enlarged lymph nodes. Urinary bladder: Unremarkable as visualized. Reproductive: Unremarkable as visualized. Bones/joints: Four metallic screws through the right femoral intertrochanteric area, neck and head with healed femoral head neck fracture. Dextroscoliosis. Soft tissues: Unremarkable. CT/CT chest abd pel w con* IMPRESSION: 1. Severe centrilobular emphysema. 2. Severe calcified coronary artery disease. 3. Chronic appearing 20% T10 compression fracture involving the superior vertebral body endplate. IMPRESSION: Multiple gallstones within the gallbladder. COMMENTS: Consistent with the [place] [employer] [employer]'s Incidental Findings Committee white paper (J Am Franklyn Radiol 2018): Any incidental renal lesion less than 1 cm or classified as too small to characterize, or any incidental cystic renal lesion characterized as simple-appearing, is likely benign. No follow-up imaging is recommended for these lesions per consensus recommendations based on imaging criteria.
[2021-09-05] MEDS: metoclopramide 5 mg/mL SDV 2 mL IVP (23:28)
[2021-09-05] MEDS: pantoprazole 40 mg SDV 80 MG IVP (23:28)
[2021-09-05] MEDS: sodium chloride 0.9% 1,000 ML 999 ML IV (23:28)
[2021-09-05 23:57] LABS: Alanine Aminotransferase 8 U/L (0-33); Albumin Level 3.4 g/dL (3.5-5.2); Alkaline Phosphatase 110 IU/L (35-105); Anion Gap 20.8 (5-19); Aspartate Amino Transferase 12 U/L (0-32); Blood Urea Nitrogen 27 mg/dL (8-23); Calcium 8.6 mg/dL (8.5-10.5); Carbon Dioxide 20 mmol/L (22-29); Chloride 103 mmol/L (98-107); Creatinine Clr Calc Pharmacy 40.1616; Globulin 3.1 g/dL (1.3-4.6); Glucose 83 mg/dL (65-115); Lactic Sepsis W/Reflex 1.2 mmol/L (0.5-2.2); Lipase 7 U/L (13-60); Osmolality Calculated 294 mOsm/kg (285-295); Potassium 3.8 mmol/L (3.5-5.1); Sodium 140 mmol/L (136-145); Total Bilirubin 0.7 mg/dL (0.15-1.2); Total Protein 6.5 g/dL (6.6-8.7)
[2021-09-06] VITALS (9 sets, daily range): BP systolic 138–163; BP diastolic 60–81; PULSE 92–116; RESP 14–18; TEMP 36.4–36.6; O2SAT 90–96; BMI 15.2
[2021-09-06] MEDS: iohexol 300 mg/mL 100 mL Btl IV (00:22)
--- NOTE | 2021-09-06 01:29 | ECG_ITS ---
[facility] Test Date: 2021-09-06 Pat Name: Gina Bennett Department: Room: Gender: Female Web Content Writer: : 1940 Requested By: Honorio Eaton Order Number: [id number] Saida MD: Hany Mtz M.D. Measurements Intervals [place] Rate: 117 P: 102 UT: 104 QRS: 106 QRSD: 89 T: 138 QT: 323 QTc: 452 Interpretive Statements SINUS TACHYCARDIA WITH SHORT UT INTERVAL POSSIBLE LEFT ATRIAL ENLARGEMENT [-0.1mV P-WAVE IN V1/V2] RIGHT AXIS DEVIATION [QRS AXIS > 100] NONSPECIFIC ST & T-WAVE ABNORMALITY No previous ECG available for comparison Electronically Signed On 09-06-2021 17:54:57 CDT by Hany Mtz M.D. [id number]
--- NOTE | 2021-09-06 01:31 | USR_ITS ---
PROCEDURE INFORMATION: Exam: US Abdomen, Limited; Right Upper Quadrant Exam date and time: 09/06/2021 2:07 AM Age: 81 years old Clinical indication: Condition or disease; Gallbladder condition; Calculus (stone); Nausea and vomiting; Additional info: Ruq, biliary, gallstones TECHNIQUE: Imaging protocol: US abdomen. Real time ultrasound with image documentation. Limited exam focused on the right upper quadrant. COMPARISON: CT chest abd pel w con* 09/06/2021 12:22 AM FINDINGS: Liver: The liver is normal in size, measuring 14 cm in length. It shows normal homogeneous echotexture. Gallbladder: There are multiple shadowing gallstones. The gallbladder wall thickness is 2 mm, normal. There is no pericholecystic fluid. The scrap separator reports a negative Person's sign. Biliary ducts: The common bile duct measures 3 mm in diameter, within normal limits. Pancreas: The pancreas is visualized segmentally and appears normal where seen. Right kidney: The right kidney measures 8.2 x 5.6 x 5 cm. Within the right kidney, there is a simple cyst measuring 1.6 by 2.1 cm. There is no right hydronephrosis or shadowing calculi. Left kidney: The patient directs the region of interest to the left upper quadrant, where there is a large left renal cyst abutting the splenic hilum and the lateral wall of the kidney. Portal venous: The portal vein is patent with hepatopetal flow. US/US abdomen limited [id number] IMPRESSION: 1. Cholelithiasis without evidence for acute cholecystitis. 2. Bilateral renal simple appearing cysts, larger on the left. Findings were discussed with Apple Mcmanus at 09/06/2021 4:49 AM CDT.
[2021-09-06 01:55] LABS: Troponin(5th) Baseline 55 ng/L (0-10)
--- NOTE | 2021-09-06 02:05 | XRR_ITS ---
PROCEDURE INFORMATION: Exam: XR Right Foot Exam date and time: 09/06/2021 2:52 AM Age: 81 years old Clinical indication: Condition or disease; Patient HX: Pressure ulcer RT lateral foot; Additional info: Wound, eval for obvious evidence of bony destruction TECHNIQUE: Imaging protocol: XR Right foot. Views: 3 or more views. COMPARISON: CR XR foot RT min 3V* [id number] 05/23/2021 3:36 PM FINDINGS: Bones/joints: There is diffuse osseous demineralization and mottling of all the visualized osseous structures. There is mild solid periosteal reaction of the 5th metatarsal that may be secondary to osteomyelitis or may be reactive to adjacent soft tissue edema. There is a 5 mm lucency in the head of the 5th metatarsal, degenerative subchondral cyst versus Sterling's abscess. Soft tissues: There is a soft tissue ulcer lateral to the head of the 5th metatarsal and 5th metatarsophalangeal joint. No radiopaque foreign bodies are noted. XR/XR foot RT min 3V* [id number] IMPRESSION: 1. Severe diffuse osseous demineralization as may be seen in disuse atrophy. 2. Soft tissue ulcer lateral to the head of the 5th metatarsal with possibly exposed bone. 3. Periosteal reaction of the 5th metatarsal that may or may not be secondary to osteomyelitis, given severe edema of the right foot. MRI may be helpful for further characterization if clinically indicated.
[2021-09-06] MEDS: morphine 4 mg/mL SDV 1 mL IVP ×2 (02:23→05:06)
[2021-09-06 02:25] LABS: Erythrocyte Sedimentation Rate 32 mm/hr (0-15)
[2021-09-06 02:26] LABS: C Reactive Protein 56.9 mg/L (0.0-4.9)
[2021-09-06] MEDS: piperacillin-tazobactam 3.375 GM in sodium chloride 0.9% (plus) 50 ML IV (02:45)
--- NOTE | 2021-09-06 03:29 | ECG_ITS ---
[facility] Test Date: 2021-09-06 Pat Name: Gina Bennett Department: Room: Gender: Female Visitor Service Assistant: : 1940 Requested By: Honorio Eaton Order Number: [id number] Saida MD: Hany Mtz M.D. Measurements Intervals [place] Rate: 112 P: 73 [place]: 134 QRS: 78 QRSD: 93 T: 73 QT: 338 QTc: 462 Interpretive Statements SINUS TACHYCARDIA POSSIBLE LEFT ATRIAL ENLARGEMENT [-0.1mV P-WAVE IN V1/V2] MODERATE ST DEPRESSION [0.05+ mV ST DEPRESSION] Compared to ECG 09/06/2021 02:46:56 ST (T wave) deviation now present Short [place] interval no longer present Right-axis deviation no longer present T-wave abnormality no longer present Electronically Signed On 09-06-2021 18:11:41 CDT by Hany Mtz M.D. [id number]
[2021-09-06 03:34] LABS: Blood Urine Trace (Negative); Glucose Urine UA Norm (Normal); Ketones Urine 1+ (Negative); Protein Urine Neg (Negative); Urine Appearance SL Hazy (CLEAR); Urine Color Yellow (Yellow); pH Urine 6 (5-7)
[2021-09-06 03:35] LABS: Add Urine Microscopic? YES; Bilirubin Urine Neg (Negative); Leukocyte Esterase Urine 2+ (Negative); Nitrate Urine Negative (Negative); Urobilinogen Urine Norm (Negative)
[2021-09-06 03:45] LABS: Add Urine Culture? Yes; Bacteria Urine 1+ /hpf; Mucus Urine TRACE /hpf; RBC Urine 0-4 /hpf (0-2); WBC Urine 25-40 /hpf (0-5)
[2021-09-06] MEDS: vancomycin 1,250 MG/250 ML PIGGYBACK 250 MG IV (04:24)
--- NOTE | 2021-09-06 04:24 | PC.NURSE ---
Pt. states that she has no pain at this time , but intermittently has muscle spasms that cause some pain. Pt. seems confused but is easily reoriented to the situation.
[2021-09-06] MEDS: sodium chloride 0.9% 1,000 ML 999 ML IV (05:06)
[2021-09-06 05:21] LABS: Troponin 5 2HR 57.95 ng/L (0-10); Troponin 5 2HR Delta 2.95 ABS# (0-10)
--- NOTE | 2021-09-06 05:43 | P.HP_ITS ---
Providers/Chief Complaint Primary Care Provider: Khloe Arthur DO Chief Complaint: n/v History of Present Illness Gina Bennett is a 81 year old female with past medical history of CVA , GERD, hypothyroidism, contracture of right knee, AAA, gastroparesis,?fibromyalgia came in with chief complaint of vomiting going on for the last 2 days, according to the patient she vomits every time she tries to take any oral intake, currentl y she is denying any nausea abdominal pain, has chronic constipation, denies any chest pain shortness of breath, fever cough. Upon arrival in the ER she was worked up for above-mentioned complaints: Pertinent imaging studies: CT chest abd pel w con: Severe centrilobular emphysema. No acute intra- abdominal findings. Abdominal ultrasound: Cholelithiasis without acute cholecystitis XR foot RT min 3V:1. Severe diffuse osseous demineralization as may be seen in disuse atrophy. 2. Soft tissue ulcer lateral to the head of the 5th metatarsal with possibly exposed bone. 3. Periosteal reaction of the 5th metatarsal that may or may not be secondary to osteomyelitis, given severe edema of the right foot. MRI may be helpful for further characterization if clinically indicated. CV arterial duplex LE RT:Right ankle brachial index 0.4 consistent with severe peripheral arterial disease/ischemic zone. ? Pertinent labs: WBC : 36.4 , H&H 13.5/ 41.6 , PLT : 353, ESR 32, CRP : 56, serum sodium 140 serum potassium 3.8, BUN and serum creatinine 27 / 0.8 , AST 12 ALT 18 ALP 110, lipase 7, Urinalysis: Urine nitrate negative, urine leukocyte esterase 2+, urine WBC 25- 40, urine bacteria 1+ Review of Systems General: Reports: 10 or more systems reviewed and unremarkable except in HPI and below Narrative: 69-year-old currently not in acute distress being admitted for chest pain evaluation Const: Denies: fever(s), chills, body aches, change in appetite or diaphoresis Card: Denies: palpitations, edema, swelling of feet/ankles, dyspnea on exertion, orthopnea or leg pain with exertion Resp: Denies: dyspnea, productive cough, wheezing or pain on inspiration GI: Denies: abdominal pain, nausea, vomiting, diarrhea or constipation : Denies: flank pain Musc: Denies: back pain, extremity pain or extremity swelling Neuro: Denies: headache(s), difficulty walking or confusion Medications/Allergies Home Medications Medication Instructions Recorded Confirmed Last Taken Type hydrocodone 5 mg-acetaminophen 325 0.5 - 1 tab PO BID PRN 12/03/19 07/13/21 12/15/20 History mg tablet tramadol 50 mg tablet 50 mg PO BID PRN 05/23/21 07/13/21 Unknown History amitriptyline 50 mg tablet 100 mg PO BEDTIME 90 Days #180 tab 06/23/21 07/13/21 Unknown Rx baclofen 5 mg tablet 5 mg PO TID #270 tab 06/23/21 07/13/21 Unknown Rx clopidogrel 75 mg tablet (Plavix) 75 mg PO QAM 90 Days #90 tab 06/23/21 07/13/21 Unknown Rx denosumab 60 mg/mL subcutaneous 60 mg SUBCUT .COMPLEX #1 ml 06/23/21 07/13/21 Unknown Rx syringe (Prolia) duloxetine 30 mg capsule,delayed 30 mg PO BEDTIME 90 Days #90 cap 06/23/21 07/13/21 Unknown Rx release (Cymbalta) metoclopramide HCl 5 mg tablet 5 mg PO BID PRN 90 Days #180 tab 06/23/21 07/13/21 Unknown Rx (Reglan) oxybutynin chloride 5 mg tablet 5 mg PO QAM 90 Days #90 tab 06/23/21 07/13/21 Unknown Rx pantoprazole 40 mg tablet,delayed 40 mg PO BID 90 Days #180 tab 06/23/21 07/13/21 Unknown Rx release (Protonix) pentoxifylline 400 mg 400 mg PO TID #90 tab 07/04/21 07/13/21 Unknown Rx tablet,extended release levothyroxine 50 mcg tablet 50 mcg PO QAM 90 Days #90 tab 07/20/21 Unknown Rx acetaminophen 325 mg tablet 325 - 650 mg PO Q6H PRN 09/06/21 09/06/21 Unknown History (Tylenol) atorvastatin 40 mg tablet 40 mg PO BEDTIME 09/06/21 09/06/21 Unknown History cholecalciferol (vitamin D3) 1,250 1,250 mcg PO Q7D 09/06/21 09/06/21 Unknown History mcg (50,000 unit) capsule nystatin 100,000 unit/gram topical 1 applic TOPICAL BID PRN 09/06/21 09/06/21 Unknown History cream vit C 250 mg-vit E 90 mg-zinc 40 1 tab PO BID 09/06/21 09/06/21 Unknown History mg-copper 1 [id number]-wihwea capsule (PreserVision AREDS-2) Allergies Allergy/AdvReac Type Severity Reaction Status Date / Time alendronate sodium AdvReac Mild unknown Verified 09/06/21 09:07 [From Fosamax] pregabalin [From Lyrica] AdvReac Mild unknown Verified 09/06/21 09:07 PFSH Acute PFSH: Medical History CVA (cerebral vascular accident) Fibromyalgia GERD (gastroesophageal reflux disease) Hypothyroidism Lumbar degenerative disc disease Mixed incontinence Osteoarthritis Osteoporosis Surgical History H/O dilation and curettage H/O esophagogastroduodenoscopy (12/16/20) H/O hand surgery H/O knee surgery H/O tubal ligation History of colonoscopy 1997 History of open reduction and internal fixation (ORIF) procedure right hip History of tonsillectomy Family History Sister Cancer PANCREATIC Other CAD (coronary artery disease) Hypertension Lung disease Social History Smoking and tobacco status: never smoked Alcohol intake: never Vitals/I&O/Wt Last Vital Signs Temp 98.1 F 09/05/21 20:49 Pulse 116 H 09/06/21 04:05 Resp 18 09/06/21 04:05 BP 163/62 09/06/21 04:05 Pulse Ox 93 09/06/21 04:05 09/05/21 09/05/21 09/06/21 14:59 22:59 06:59 Intake Total 1050 / 1050 Balance 1050 / 1050 Weight last 48 hrs Weight 45.359 kg Physical Exam Const: COMMON NORMALS: patient oriented x3 HENMT: COMMON NORMALS: normocephalic and atraumatic HEAD & SCALP: normocephalic and atraumatic EXTERNAL EAR: Yes external ears normal Eye: COMMON NORMALS: no scleral icterus GENERAL EYE: appearance normal, both eyes and all related structures Chest: COMMONS NORMALS: normal inspection of the chest and normal palpation of entire chest wall CHEST: Yes Symmetrical chest wall rise Resp: COMMON NORMALS: normal respiratory effort, No retractions, No use of accessory muscles and clear to auscultation bilaterally EFFORT & INSPECTION: Yes symmetric chest movement AUSCULTATION: clear to auscultation bilaterally Cardio: COMMON NORMALS: regular rate, regular rhythm, S1 normal heart sound present, S2 normal heart sound present, No gallops present (Cardio), No murmurs present (Cardio), No rub (Cardio) and Peripheral pulses 2+ throughout RATE: r egular rate RHYTHM: regular rhythm HEART SOUNDS: S1 normal heart sound present and S2 normal heart sound present PERIPHERAL PULSES: Peripheral pulses 2+ throughout GI: COMMON NORMALS: Normal to inspection, nondistended, normoactive bowel sounds present, Soft to palpation, non-tender, No hepatosplenomegaly present and no masses AUSCULTATION: Yes normoactive bowel sounds PALPATION: Yes Soft to palpation and Yes No hepatosplenomegaly present RECTAL EXAM: deferred Extremity: COMMON NORMALS: no clubbing, cyanosis or edema and no pedal edema Neuro: COMMON NORMALS: patient oriented x3 Data : 09/05/21 22:37 09/05/21 23:30 Micro: Microbiology 09/06/21 01:24 Blood Culture - Preliminary Blood SPECIMEN COLLECTED A&P Assessment and plan (1) Vomiting: Status: Acute (2) Pressure ulcer of right foot, stage 2: Status: Acute (3) Hypothyroidism: Status: Chronic (4) Fibromyalgia: Status: Chronic (5) Neuropathy: Status: Acute (6) Urinary incontinence: Status: Acute Qualifiers: Urinary Incontinence type: mixed stress and urge incontinence Qualified Code(s): N39.46 - Mixed incontinence (7) GERD (gastroesophageal reflux disease): Status: Chronic Qualifiers: Esophagitis presence: esophagitis presence not specified Qualified Code(s): K21.9 - Gastro-esophageal reflux disease without esophagitis (8) Leukocytosis: Status: Acute (9) PAD (peripheral artery disease): Status: Acute (10) SIRS (systemic inflammatory response syndrome): Status: Acute (11) Dehydration: Status: Acute Plan 81 year old female with past medical history of CVA , GERD, hypothyroidism, contracture of right knee, AAA, gastroparesis,?fibromyalgia came in with chief complaint of vomiting going on for the last 2 days, Assessment: Leukocytosis SIRS Vomiting gastroparesis Dehydration History of CVA Chronic right foot pressure ulcer: Hypothyroidism PAD UTI Plan: Follow blood culture Urine culture Procalcitonin Empirically on levofloxacin for now Continue IV hydration Continue Zofran, Reglan Outpatient follow-up for PAD Continue levothyroxine Continue with regular wound care of right foot chronic ulcer (follow with wound care clinic, uses wet-to-dry dressing, and Medihoney) CODE STATUS: AND DVT prophylaxis: On Lovenox Attestations Medical Necessity Statement*: Patient is to be in hospital for management of, SIRS rule out sepsis. 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
[2021-09-06 06:29] LABS: Troponin 5 6HR 60.44 ng/L (0-10)
[2021-09-06 06:32] LABS: Troponin 5 6HR Delta 5.44 ng/L (0-12)
[2021-09-06 06:44] LABS: LAB Peripheral Smear Sent for Review
[2021-09-06] MEDS: levofloxacin-dextrose 5 % 750 MG/150 ML PREMIX 100 MG IV (07:20)
[2021-09-06] MEDS: sodium chloride 0.9% 1,000 ML 100 ML IV (07:20)
[2021-09-06] MEDS: enoxaparin 40 mg/0.4 mL Syringe SUBCUT (07:20)
[2021-09-06] MEDS: levothyroxine 50 mcg Tablet PO (07:21)
--- NOTE | 2021-09-06 07:29 | ECG_ITS ---
[facility] Test Date: 2021-09-06 Pat Name: Gina Bennett Department: Room: Gender: Female Rn Perinatal: : 1940 Requested By: Honorio Eaton Order Number: [id number] Saida MD: Hany Mtz M.D. Measurements Intervals [place] Rate: 118 P: 77 [place]: 96 QRS: 84 QRSD: 93 T: 75 QT: 321 QTc: 451 Interpretive Statements SINUS TACHYCARDIA WITH SHORT [place] INTERVAL MINIMAL ST DEPRESSION [0.025+ mV ST DEPRESSION] Compared to ECG 09/06/2021 06:20:16 Short [place] interval now present ST (T wave) deviation still present Electronically Signed On 09-06-2021 18:11:35 CDT by Hany Mtz M.D. [id number]
[2021-09-06] MEDS: metoclopramide 5 mg/mL SDV 2 mL IVP (09:41)
[2021-09-06] MEDS: morphine 4 mg/mL SDV 1 mL 2 MG IVP ×2 (09:42→18:50)
--- NOTE | 2021-09-06 11:18 | PM.MISC ---
Miscellaneous Note Note: This morning I reviewed with the patient in the ER Patient has been seeing Dr. Chen for her right foot nonhealing ulcer My concern is related to osteomyelitis requested MRI Severe leukocytosis ESR 32 Patient is stating that she would have esophageal spasm on and off, last EGD was with Dr. Thacker last year Sometimes goes up to 5 days, when she is stable she can eat any food Patient is complaining of pain all over her body Right foot nonhealing ulcer Packed with dressing Tunneled wound Patient is cachectic, malnourished S1, S2 tachyarrhythmia Currently on 2 L nasal cannula Afebrile No active chest pain or shortness of breath Plan For esophageal spasm patient is stating Reglan Protonix helps for analgesia I would add morphine For her episodic esophageal spasms like to manage her conservatively, not sure if he would benefit from Botox as this is not a stricture or achalasia Cholelithiasis without Yuridia cystitis Right foot possibility of osteomyelitis, MRI foot Will consult surgery after MRI report She does have dehydration related tachycardia, she is afebrile, her leukocytosis in my opinion is due to underlying osteomyelitis, high ESR and CRP however ESR is around 30s No signs of endorgan damage because it is normal, creatinine normal blood cultures have been taken in the ER Previous wound culture showed Pseudomonas and staph intermedius, 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
--- NOTE | 2021-09-06 12:25 | PC.NURSE ---
Moved pt into a recliner at her request for comfort.
[2021-09-06] MEDS: sodium chloride 0.9% 1,000 ML 75 ML IV (15:27)
[2021-09-06] MEDS: baclofen 10 mg Tablet 5 MG PO (20:36)
[2021-09-06] MEDS: duloxetine 30 mg Capsule PO (20:36)
[2021-09-06] MEDS: pantoprazole 40 mg SDV IVP (20:37)
[2021-09-06] MEDS: amitriptyline 25 mg Tablet 100 MG PO (21:36)
[2021-09-07] VITALS (10 sets, daily range): BP systolic 113–154; BP diastolic 53–88; PULSE 59–109; RESP 14–18; TEMP 36.4–36.8; O2SAT 75–98
[2021-09-07] MEDS: sodium chloride 0.9% 1,000 ML 75 ML IV ×2 (04:47→20:11)
[2021-09-07] MEDS: levofloxacin-dextrose 5 % 750 MG/150 ML PREMIX 100 MG IV (04:59)
[2021-09-07 05:12] LABS: Basophils # 0.1 10^3/uL (0.0-0.1); Basophils % 0.3 %; Eosinophils % 0.1 %; Hematocrit 35.9 % (37.0-47.0); Hemoglobin 11.8 g/dL (11.5-15.3); Lymphocytes # 0.5 10^3/uL (0.8-4.8); Lymphocytes % 3.1 %; Mean Corpuscular HGB Conc 32.9 g/dL (30.0-36.0); Mean Corpuscular Hemoglobin 30.8 pg (28.0-34.0); Mean Corpuscular Volume 93.7 fl (81-99); Mean Platelet Volume 10.8 fL (7.4-10.4); Monocytes # 0.8 10^3/uL (0.2-0.9); Monocytes % 5.2 %; Neutrophils # 13.61 10^3/uL (1.8-7.7); Neutrophils % 90.8 %; Nucleated Red Blood Cells % 0 %; Platelet Count 244 10^3/cmm (130-400); Red Blood Count 3.83 10^6/uL (4.1-5.3); Red Cell Distribution Width 16.5 % (12.1-15.1)
[2021-09-07] MEDS: levothyroxine 50 mcg Tablet PO (05:26)
--- NOTE | 2021-09-07 05:37 | PM.CONSULT ---
Providers/Reason For Consult Consulting Physician/Specialty*: Dr. Chen/cardiothoracic surgery Reason for Consult*: Right foot ulcer Requesting Physician: Dr. Lee Attending Physician: Hermilo Lee MD Primary Care Provider: Khloe Arthur DO History of Present Illness History of Present Illness Gina Bennett is an 81 year old female whom we have been following in wound care services on a weekly basis for a right lateral/plantar fifth metatarsal ulcer which now has exposed bone. She has chronic contractures of her right hip and knee following a prior femoral neck fracture repair. She cannot straighten the leg. She has suspected peripheral vascular disease, and indeed her KAREY 0.4. However due to her chronic contractures, we cannot perform effective imaging. She did have an arterial duplex study which was a limited study. The popliteal artery could not be assessed. There was a greater than 10-1 velocity drop between the right common femoral artery and the proximal right SFA's consistent with greater than 75% stenosis versus occlusion at that level. There is monophasic waveform throughout the remaining portion of the right lower extremity. Right ankle/brachial index 0.4. She was admitted yesterday after presenting with complaints of nausea and vomiting for 2 days. It is noted for urinalysis she did appear to have a UTI with 25-40 white cells per high-powered field along with 2+ leukocyte esterase and 1+ bacteria. Her initial CBC revealed a white count of over 36,000 though this is decreased to 15,000 this morning after initiation of antibiotic, IV Levaquin. Right foot x-ray reveals severe osteopeniaWith periosteal reaction of the fifth metatarsal that might be suggestive of osteomyelitis. She reports that she is scheduled for a CT scan this morning. Review of Systems Const: Reports: change in appetite, fatigue and malaise; Denies: fever(s) or chills Card: Denies: chest pain or palpitations Resp: Denies: dyspnea or productive cough GI: Reports: nausea and vomiting; Denies: abdominal pain or hematemesis Musc: Reports: back pain and extremity pain Neuro: Reports: headache(s) Medications/Allergies Home Medications Medication Instructions Recorded Confirmed Last Taken Type hydrocodone 5 mg-acetaminophen 325 0.5 - 1 tab PO BID PRN 12/03/19 09/06/21 12/15/20 History mg tablet tramadol 50 mg tablet 50 mg PO BID PRN 05/23/21 09/06/21 Unknown History amitriptyline 50 mg tablet 100 mg PO BEDTIME 90 Days #180 tab 06/23/21 09/06/21 Unknown Rx baclofen 5 mg tablet 5 mg PO TID #270 tab 06/23/21 09/06/21 Unknown Rx clopidogrel 75 mg tablet (Plavix) 75 mg PO QAM 90 Days #90 tab 06/23/21 09/06/21 Unknown Rx denosumab 60 mg/mL subcutaneous 60 mg SUBCUT .COMPLEX #1 ml 06/23/21 09/06/21 08/14/21 Rx syringe (Prolia) duloxetine 30 mg capsule,delayed 30 mg PO BEDTIME 90 Days #90 cap 06/23/21 09/06/21 Unknown Rx release (Cymbalta) metoclopramide HCl 5 mg tablet 5 mg PO BID PRN 90 Days #180 tab 06/23/21 09/06/21 Unknown Rx (Reglan) oxybutynin chloride 5 mg tablet 5 mg PO QAM 90 Days #90 tab 06/23/21 09/06/21 Unknown Rx pantoprazole 40 mg tablet,delayed 40 mg PO BID 90 Days #180 tab 06/23/21 09/06/21 Unknown Rx release (Protonix) pentoxifylline 400 mg 400 mg PO TID #90 tab 07/04/21 09/06/21 Unknown Rx tablet,extended release levothyroxine 50 mcg tablet 50 mcg PO QAM 90 Days #90 tab 07/20/21 09/06/21 Unknown Rx acetaminophen 325 mg tablet 325 - 650 mg PO Q6H PRN 09/06/21 09/06/21 Unknown History (Tylenol) atorvastatin 40 mg tablet 40 mg PO BEDTIME 09/06/21 09/06/21 Unknown History cholecalciferol (vitamin D3) 1,250 1,250 mcg PO Q7D 09/06/21 09/06/21 Unknown History mcg (50,000 unit) capsule nystatin 100,000 unit/gram topical 1 applic TOPICAL BID PRN 09/06/21 09/06/21 Unknown History cream vit C 250 mg-vit E 90 mg-zinc 40 1 tab PO BID 09/06/21 09/06/21 Unknown History mg-copper 1 [id number]-ohxrro-efmudd capsule (PreserVision AREDS-2) Allergies Allergy/AdvReac Type Severity Reaction Status Date / Time alendronate sodium AdvReac Mild unknown Verified 09/06/21 09:07 [From Fosamax] pregabalin [From Lyrica] AdvReac Mild unknown Verified 09/06/21 09:07 Current Medications Generic Name Dose Route Start Last Admin Trade Name Freq PRN Reason Stop Dose Admin Amitriptyline HCl 100 mg 09/06/21 21:00 09/06/21 21:36 Amitriptyline 25 Mg Tablet PO 100 mg BEDTIME ZEKE Administration Atorvastatin Calcium 40 mg 09/06/21 09:00 09/06/21 10:27 Atorvastatin 40 Mg Tablet PO Not Given DAILY ZEKE Baclofen 5 mg 09/06/21 09:00 09/06/21 20:36 Baclofen 10 Mg Tablet PO 5 mg TID ZEKE Administration Docusate Sodium 100 mg 09/06/21 09:00 09/06/21 17:44 Docusate Sodium 100 Mg Capsule PO Not Given BID ZEKE Duloxetine HCl 30 mg 09/06/21 21:00 09/06/21 20:36 Duloxetine 30 Mg Capsule PO 30 mg BEDTIME ZEKE Administration Enoxaparin Sodium 40 mg 09/06/21 05:45 09/06/21 07:20 Enoxaparin 40 Mg/0.4 Ml Syringe SUBCUT 40 mg Q24H EZKE Administration Sodium Chloride 1,000 mls @ 75 mls/hr 09/06/21 05:45 09/07/21 04:47 Sodium Chloride 0.9% IV 75 mls/hr .[id number] ZEKE Administration Levofloxacin/Dextrose 750 mg in 150 mls @ 100 mls/hr 09/06/21 05:45 09/07/21 04:59 Levaquin-D5w IV 100 mls/hr Q24H ZEKE Administration Protocol Levothyroxine Sodium 50 mcg 09/06/21 06:00 09/07/21 05:26 Levothyroxine 50 Mcg Tablet PO 50 mcg QAM ZEKE Administration Metoclopramide HCl 5 mg 09/06/21 06:21 09/06/21 09:41 Metoclopramide 5 Mg/Ml Sdv 2 Ml IVP 5 mg Q8H PRN Administration vomitting Morphine Sulfate 2 mg 09/06/21 09:29 09/06/21 18:50 Morphine 4 Mg/Ml Sdv 1 Ml IVP 2 mg Q4H PRN Administration throat pain Pantoprazole Sodium 40 mg 09/06/21 20:00 09/06/21 20:37 Pantoprazole 40 Mg Sdv IVP 40 mg Q24H ZEKE Administration PFSH Acute PFSH: Medical History CVA (cerebral vascular accident) Fibromyalgia GERD (gastroesophageal reflux disease) Hypothyroidism Lumbar degenerative disc disease Mixed incontinence Osteoarthritis Osteoporosis Surgical History H/O dilation and curettage H/O esophagogastroduodenoscopy (12/16/20) H/O hand surgery H/O knee surgery H/O tubal ligation History of colonoscopy 1997 History of open reduction and internal fixation (ORIF) procedure right hip History of tonsillectomy Family History Sister Cancer PANCREATIC Other CAD (coronary artery disease) Hypertension Lung disease Social History Smoking and tobacco status: never smoked Alcohol intake: never Vitals/I&O/Wt Last Vital Signs Temp 97.8 F 09/07/21 04:00 Pulse 109 H 09/07/21 04:00 Resp 14 09/07/21 04:00 BP 113/63 09/07/21 04:00 Pulse Ox 90 09/07/21 04:00 09/06/21 09/06/21 09/07/21 14:59 22:59 06:59 Intake Total 600 / 600 871.25 / 1471.25 1000 / 2471.25 Balance 600 / 600 871.25 / 1471.25 1000 / 2471.25 Weight last 48 hrs Weight 100 lb Weight 100 lb Physical Exam Neck/C-Spine: COMMON NORMALS: no lymphadenopathy; negative for full ROM Resp: COMMON NORMALS: normal respiratory effort, clear to auscultation bilaterally and percussion normal AUSCULTATION: clear to auscultation bilaterally PERCUSSION: percussion normal Cardio: COMMON NORMALS: regular rate, regular rhythm, S1 normal heart sound present and No murmurs present (Cardio) RATE: regular rate RHYTHM: regular rhythm HEART SOUNDS: S1 normal heart sound present Extremity: OTHER: Chronic flexion contracture of right hip and right knee. Patient cannot fully extend right leg. She has a known ulceration to the fifth metatarsal head laterally of the right foot. There was exposed fascia at her last clinic visit. She has both clinically and now documented by duplex, substantial peripheral vascular disease though given her chronic contractures, both further diagnostic imaging, percutaneous intervention, or open revascularization are challenging and may be prohibitive. Data : 09/07/21 04:05 09/05/21 23:30 Micro: Microbiology 09/06/21 01:24 Blood Culture - Preliminary Blood NEGATIVE TO DATE 09/05/21 23:30 Blood Culture - Preliminary Blood SPECIMEN COLLECTED A&P Assessment and plan (1) Pressure ulcer of right foot, stage 2: Ms. Bennett states that she is scheduled for a CT scan of the right foot today. We will evaluate this study to determine next step, though operative debridement would probably be indicated a potential resection of the exposed bone. She is quite reluctant to do consider any type of amputation, though I have spoke with her previously during wound care clinic visits that healing of this wound may be quite challenging due to vascular insufficiency which may not be correctable. She stated understanding. I would recommend wet-to-dry dressing changes in the interim and continue antibiotic therapy. Status: Acute Consult Attestations Medical Necessity Statement: Chronic ulceration right foot. Urinary tract infection. Time Spent in Patient Care: Greater than 35 minutes Coding Level of Care Code Acute Manager Machine for Johnny Morejon Diagnoses Pressure ulcer of right foot, stage 2 L89.892
[2021-09-07 05:46] LABS: Alanine Aminotransferase 9 U/L (0-33); Albumin Level 2.8 g/dL (3.5-5.2); Alkaline Phosphatase 100 IU/L (35-105); Anion Gap 14.8 (5-19); Aspartate Amino Transferase 14 U/L (0-32); Blood Urea Nitrogen 25 mg/dL (8-23); Calcium 7.1 mg/dL (8.5-10.5); Carbon Dioxide 18 mmol/L (22-29); Chloride 110 mmol/L (98-107); Creatinine Clr Calc Pharmacy 40.1616; Globulin 2.7 g/dL (1.3-4.6); Glucose 121 mg/dL (65-115); Magnesium 1.9 mg/dL (1.7-2.3); Osmolality Calculated 294 mOsm/kg (285-295); Phosphorus 2.2 mg/dL (2.5-4.5); Potassium 3.8 mmol/L (3.5-5.1); Sodium 139 mmol/L (136-145); Total Bilirubin 0.3 mg/dL (0.15-1.2); Total Protein 5.5 g/dL (6.6-8.7)
[2021-09-07 05:49] LABS: Procalcitonin 1.28 ng/mL (0-0.5)
--- NOTE | 2021-09-07 06:04 | P.ANESASSM_ITS ---
Pre-Anesthetic Assessment Height/Weight: Height 1.73 m Weight 45.359 kg Temp Pulse Resp BP Pulse Ox 97.8 F 109 H 14 113/63 90 09/07/21 04:00 09/07/21 04:00 09/07/21 04:00 09/07/21 04:00 09/07/21 04:00 Preop Diagnosis: upper gi symptoms Operation Date: 09/07/21 07:00 Proposed Procedures p Incision And Drainage right foot(Right) - Óscar Chen MD Familial anesthetic complications: none Was Beta Ambrose taken within 24 hours: N/A Was Clonidine taken within 24 hours: N/A Social Tobacco Exam alert, oriented x 3, clear to auscultation bilaterally and regular rate & rhythm Airway Submandibular: within normal limits Cervical ROM: within normal limits Mallampati: Class II Comments: Comments: missing teeth Pulmonary Chronic Obstructive Pulmonary Disease CT 09/05/21 CT/CT chest abd pel w con* IMPRESSION: 1. Severe centrilobular emphysema. 2. Severe calcified coronary artery disease. 3. Chronic appearing 20% T10 compression fracture involving the superior vertebral body endplate. ? ? CV/HEM Peripheral Vascular Disease EKG 09/06/21 ?? Interpretive Statements SINUS TACHYCARDIA WITH SHORT HI INTERVAL MINIMAL ST DEPRESSION? [0.025+ mV ST DEPRESSION] Compared to ECG 09/06/2021 06:20:16 Short HI interval now present ST (T wave) deviation still present Electronically Signed On 09-06-2021 18:11:35 CDT by Hany Mtz M.D. [email or web address] Carotid Doppler 10/2020 CONCLUSIONS ?Moderate heterogeneous plaques of the bifurcations bilaterally ?with the Doppler features suggesting less than 50% stenosis. ?Elevated velocity with heavy heterogeneous plaques in the ?proximal external carotid artery bilaterally , suggestive of ?hemodynamically significant stenosis. ?Intimal thickening and minimal plaques in the common carotid ?arteries bilaterally. Incontinence GI Gastroesophageal Reflux Disease Gastroparesis Dysphagia Right knee contracture Cholelithiasis Metabolic Thyroid Disease Musc/skel Fibromyalgia, Lower Back Pain and Osteoarthritis/DJD Right foot ulcer Neuropsych Cerebrovascular Accident and Neuropathy (Acute radial nerve palsy, radiculopathy, ) Anesthetic Plan ASA status: 3 Anesthesia: Anesthesia Evaluation, General and MAC Other: We discussed risk and benefits of general anesthesia including PONV, sore throat (sometimes severe), corneal abrasion, positioning and peripheral nerve injuries, life threatening allergic reaction, post operative ICU admission requiring prolonged intubation, aspiration, stroke, heart attack, , and rare incidences of recall. I discussed with the patient risks, goals, and benefits of MAC and general anesthesia. We discussed spectrum of MAC anesthesia including conversion to general as well as possibility of recall of intraoperative stimuli including discomfort/pain. Patient consents to MAC or General pending further discussion with surgeon. Risk of > 500 ml blood loss (7ml/kg in children): No Medications/Allergies Home Medications Medication Instructions Recorded Confirmed Last Taken Type hydrocodone 5 mg-acetaminophen 325 0.5 - 1 tab PO BID PRN 12/03/19 09/06/21 12/15/20 History mg tablet tramadol 50 mg tablet 50 mg PO BID PRN 05/23/21 09/06/21 Unknown History amitriptyline 50 mg tablet 100 mg PO BEDTIME 90 Days #180 tab 06/23/21 09/06/21 Unknown Rx baclofen 5 mg tablet 5 mg PO TID #270 tab 06/23/21 09/06/21 Unknown Rx clopidogrel 75 mg tablet (Plavix) 75 mg PO QAM 90 Days #90 tab 06/23/21 09/06/21 Unknown Rx denosumab 60 mg/mL subcutaneous 60 mg SUBCUT .COMPLEX #1 ml 06/23/21 09/06/21 08/14/21 Rx syringe (Prolia) duloxetine 30 mg capsule,delayed 30 mg PO BEDTIME 90 Days #90 cap 06/23/21 09/06/21 Unknown Rx release (Cymbalta) metoclopramide HCl 5 mg tablet 5 mg PO BID PRN 90 Days #180 tab 06/23/21 09/06/21 Unknown Rx (Reglan) oxybutynin chloride 5 mg tablet 5 mg PO QAM 90 Days #90 tab 06/23/21 09/06/21 Unknown Rx pantoprazole 40 mg tablet,delayed 40 mg PO BID 90 Days #180 tab 06/23/21 09/06/21 Unknown Rx release (Protonix) pentoxifylline 400 mg 400 mg PO TID #90 tab 07/04/21 09/06/21 Unknown Rx tablet,extended release levothyroxine 50 mcg tablet 50 mcg PO QAM 90 Days #90 tab 07/20/21 09/06/21 Unknown Rx acetaminophen 325 mg tablet 325 - 650 mg PO Q6H PRN 09/06/21 09/06/21 Unknown History (Tylenol) atorvastatin 40 mg tablet 40 mg PO BEDTIME 09/06/21 09/06/21 Unknown History cholecalciferol (vitamin D3) 1,250 1,250 mcg PO Q7D 09/06/21 09/06/21 Unknown History mcg (50,000 unit) capsule nystatin 100,000 unit/gram topical 1 applic TOPICAL BID PRN 09/06/21 09/06/21 Unknown History cream vit C 250 mg-vit E 90 mg-zinc 40 1 tab PO BID 09/06/21 09/06/21 Unknown History mg-copper 1 [id number] capsule (PreserVision AREDS-2) Allergies Allergy/AdvReac Type Severity Reaction Status Date / Time alendronate sodium AdvReac Mild unknown Verified 09/06/21 09:07 [From Fosamax] pregabalin [From Lyrica] AdvReac Mild unknown Verified 09/06/21 09:07 Current Medications Generic Name Dose Route Start Last Admin Trade Name Freq PRN Reason Stop Dose Admin Amitriptyline HCl 100 mg 09/06/21 21:00 09/06/21 21:36 Amitriptyline 25 Mg Tablet PO 100 mg BEDTIME ZEKE Administration Atorvastatin Calcium 40 mg 09/06/21 09:00 09/06/21 10:27 Atorvastatin 40 Mg Tablet PO Not Given DAILY ZEKE Baclofen 5 mg 09/06/21 09:00 09/06/21 20:36 Baclofen 10 Mg Tablet PO 5 mg TID ZEKE Administration Docusate Sodium 100 mg 09/06/21 09:00 09/06/21 17:44 Docusate Sodium 100 Mg Capsule PO Not Given BID ZEKE Duloxetine HCl 30 mg 09/06/21 21:00 09/06/21 20:36 Duloxetine 30 Mg Capsule PO 30 mg BEDTIME ZEKE Administration Enoxaparin Sodium 40 mg 09/06/21 05:45 09/06/21 07:20 Enoxaparin 40 Mg/0.4 Ml Syringe SUBCUT 40 mg Q24H ZEKE Administration Sodium Chloride 1,000 mls @ 75 mls/hr 09/06/21 05:45 09/07/21 04:47 Sodium Chloride 0.9% IV 75 mls/hr .[id number] ZEKE Administration Levofloxacin/Dextrose 750 mg in 150 mls @ 100 mls/hr 09/06/21 05:45 09/07/21 04:59 Levaquin-D5w IV 100 mls/hr Q24H ZEKE Administration Protocol Levothyroxine Sodium 50 mcg 09/06/21 06:00 09/07/21 05:26 Levothyroxine 50 Mcg Tablet PO 50 mcg QAM ZEKE Administration Metoclopramide HCl 5 mg 09/06/21 06:21 09/06/21 09:41 Metoclopramide 5 Mg/Ml Sdv 2 Ml IVP 5 mg Q8H PRN Administration vomitting Morphine Sulfate 2 mg 09/06/21 09:29 09/06/21 18:50 Morphine 4 Mg/Ml Sdv 1 Ml IVP 2 mg Q4H PRN Administration throat pain Pantoprazole Sodium 40 mg 09/06/21 20:00 09/06/21 20:37 Pantoprazole 40 Mg Sdv IVP 40 mg Q24H ZEKE Administration PFSH Anesthesia Medical History CVA (cerebral vascular accident) Fibromyalgia GERD (gastroesophageal reflux disease) Hypothyroidism Lumbar degenerative disc disease Mixed incontinence Osteoarthritis Osteoporosis Surgical History H/O dilation and curettage H/O esophagogastroduodenoscopy (12/16/20) H/O hand surgery H/O knee surgery H/O tubal ligation History of colonoscopy 1997 History of open reduction and internal fixation (ORIF) procedure right hip History of tonsillectomy Family History Sister Cancer PANCREATIC Other CAD (coronary artery disease) Hypertension Lung disease Social History Smoking and tobacco status: never smoked Alcohol intake: never Data Anesthesia : 09/08/21 04:21 09/08/21 04:21 Short CBC 09/05/21 09/07/21 Range/Units 22:37 04:05 WBC 36.4 H* 15.0 H (4.0-10.0) 10^3/uL Hgb 13.5 11.8 (11.5-15.3) g/dL Hct 41.6 35.9 L (37.0-47.0) % MCV 93.5 93.7 (81-99) fl Plt Count 353 244 D (130-400) 10^3/cmm Neut % (Auto) 92.1 90.8 % Neut # (Auto) 33.48 H 13.61 H (1.8-7.7) 10^3/uL BMP 09/05/21 09/05/21 09/07/21 22:37 23:30 04:05 Sodium Cancelled 140 139 Potassium Cancelled 3.8 3.8 Chloride Cancelled 103 110 H Carbon Dioxide Cancelled 20 L 18 L BUN Cancelled 27 H 25 H Creatinine Cancelled 0.8 0.6 Glucose Cancelled 83 121 H Calcium Cancelled 8.6 7.1 L Cardiac Enzymes 09/05/21 09/06/21 09/06/21 Range/Units 23:30 04:17 05:51 Troponin T Baseline 55 H (0-10) ng/L Troponin T 120 Minute 57.95 H (0-10) ng/L Delta Troponin T 2.95 (0-10) ABS# Troponin T Hi Sens 6Hr 60.44 H (0-10) ng/L Troponin T Hi Sens 6Hr Delta 5.44 (0-12) ng/L Liver Function 09/05/21 09/05/21 09/07/21 Range/Units 22:37 23:30 04:05 Total Bilirubin Cancelled 0.7 0.3 AST Cancelled 12 14 ALT Cancelled 8 9 Alkaline Phosphatase Cancelled 110 H 100 Albumin Cancelled 3.4 L 2.8 L Urine 09/06/21 Range/Units 02:00 Urine Color Yellow (Yellow) Urine Appearance Sl hazy (CLEAR) Urine pH 6 (5-7) Ur Specific [place] 1.010 (1.005-1.030) Urine Protein Neg (Negative) Urine Glucose (UA) Norm (Normal) Urine Ketones 1+ H (Negative) Urine Nitrate Negative (Negative) Urine Bilirubin Neg (Negative) Ur Leukocyte Esterase 2+ H (Negative) Urine RBC 0-4 H (0-2) /hpf Urine WBC 25-40 H (0-5) /hpf Coags 09/05/21 09/05/21 22:37 23:30 ESR 32 H C-Reactive Protein 56.9 H Microbiology 09/06/21 01:24 Blood Culture - Preliminary Blood NEGATIVE TO DATE 09/05/21 23:30 Blood Culture - Preliminary Blood SPECIMEN COLLECTED Cardiac Studies: No Data to Display
[2021-09-07] MEDS: sodium chloride 0.9% 1,000 ML 30 ML IV (06:34)
--- NOTE | 2021-09-07 08:53 | P.PN_ITS ---
Subjective Subjective: Dr. Chen has evaluated her today, waiting for MRI to make further decision Patient is still complaining of pain in her right foot Leukocytosis has improved And continued diet GI soft, no plan for debridement today as per Dr. Chen's evaluation Vitals/I&O/Wt Last Vital Signs Temp 97.6 F 09/07/21 07:35 Pulse 77 09/07/21 07:35 Resp 18 09/07/21 07:35 BP 143/76 09/07/21 07:35 Pulse Ox 98 09/07/21 07:35 09/06/21 09/07/21 09/07/21 22:59 06:59 14:59 Intake Total 871.25 / 1471.25 1150 / 2621.25 Balance 871.25 / 1471.25 1150 / 2621.25 Weight last 48 hrs Weight 45.359 kg Weight 45.359 kg Physical Exam Narrative: Patient is resting comfortably at the time of my evaluation She is extremely dehydrated and malnourished Complaining of foot pain, she did not allow me to examine her foot completely Right leg contracture She is awake and alert Saturating well on 4 to 5 L nasal cannula Soft abdomen S1, S2 Malnourished Muscle mass loss Data : 09/07/21 04:05 09/07/21 04:05 Micro: Microbiology 09/05/21 23:30 Blood Culture - Preliminary Blood NEGATIVE TO DATE 09/06/21 01:24 Blood Culture - Preliminary Blood NEGATIVE TO DATE A&P Assessment and plan (1) Dehydration: Status: Acute (2) PAD (peripheral artery disease): Status: Acute (3) Leukocytosis: Status: Acute (4) Vomiting: Status: Acute (5) Right foot ulcer: Status: Acute Qualifiers: Non-pressure ulcer stage: limited to breakdown of skin Qualified Code(s): L97.511 - Non-pressure chronic ulcer of other part of right foot limited to breakdown of skin Plan Esophageal spasm Advance diet to GI soft For recurrence of symptoms would use Reglan, calcium or nitrate ranjit, she might benefit from outpatient EGD and Botox injection Peripheral arterial disease Pain at rest Nonhealing ulcer Poor candidate for surgical intervention Dr. Chen on board Right foot osteomyelitis, MRI pending, appreciate Dr. Chen's evaluation Continue IV Levaquin, previous wound cultures reviewed Hypothyroidism: Continue Synthroid Right leg contracture continue baclofen, hold amitriptyline, continue duloxetine DVT prophylaxis covered with Lovenox DNR/DNI GI soft diet She does have guarded prognosis Attestations Medical Necessity Statement*: Continue medical management Time Spent in Patient Care: 30 Coding Level of Care Code Acute Risk Management Internship for Chg Fwd Diagnoses Dehydration E86.0 PAD (peripheral artery disease) I73.9 Leukocytosis D72.829 Vomiting R11.10 Right foot ulcer L97.511 Non-pressure ulcer stage: limited to breakdown of skin
[2021-09-07] MEDS: morphine 4 mg/mL SDV 1 mL 2 MG IVP (08:59)
[2021-09-07] MEDS: baclofen 10 mg Tablet 5 MG PO ×3 (09:06→20:10)
[2021-09-07] MEDS: docusate sodium 100 mg Capsule PO (09:07)
[2021-09-07] MEDS: atorvastatin 40 mg Tablet PO (09:07)
--- NOTE | 2021-09-07 10:00 | MR_ITS ---
WS: [id number] MR OF THE RIGHT FOOT WITHOUT GADOLINIUM ENHANCEMENT. INDICATION: Osteomyelitis TECHNIQUE: Coronal PD, coronal T2, axial PD, axial T2, axial T1, sagittal T1, sagittal STIR imaging. Images are limited due to patient positioning. Patient scanned onside in the position with knee s to chest FINDINGS: Advanced demineralization. Soft tissue ulceration lateral to the 5th metatarsal head. Assoc iated soft tissue edema. Replacement of the normal fatty bone marrow signal involving the head of the 5th metatarsal extending into the base of the 5th proximal phalanx. Findings suspicious for osteomye litis. Additional associated edema with partial replacement of the T1 fatty bone marrow signal extend ing to the mid shaft of the 5th metatarsal compatible with osteomyelitis No evidence of drainable abscess or fluid collection. Diffuse edema involving the lateral foot soft tissues compatible with cellulitis. MR/MR foot RT wo con* [id number] IMPRESSION: 1. Osteomyelitis involving the head of the 5th metatarsal extending across the joint into the base of the 5th proximal phalanx as described above. Osteomyeli tis extends into the mid shaft of the 5th metatarsal.
[2021-09-07 13:34] LABS: Leukemia Profile (BBPL) See Report
[2021-09-07 13:35] LABS: Lymphoma Profile (BBPL) See Report
--- NOTE | 2021-09-07 14:41 | SUR.OPER ---
0645 pt never went to OR, case was aborted during pre-op.
--- NOTE | 2021-09-07 17:20 | PM.MISC ---
Miscellaneous Note Purpose of Documentation: Results of today's MRI is noted. I discussed with Ms. Bennett. Due to scheduling conflict, her surgery has been rescheduled for tomorrow morning at 7 AM. I did discuss that this will require bowel resection of the distal fifth metatarsal and portions of the proximal phalanx of the fifth toe. Ultimate results of this debridement and resection is unclear in relation to her vascular status which I have again discussed with her and she is well aware. We will plan to proceed with surgery tomorrow morning.
[2021-09-07] MEDS: duloxetine 30 mg Capsule PO (20:10)
[2021-09-07] MEDS: pantoprazole 40 mg SDV IVP (20:10)
[2021-09-08] VITALS (17 sets, daily range): BP systolic 107–198; BP diastolic 47–97; PULSE 98–118; RESP 15–20; TEMP 36.1–36.8; O2SAT 90–98
--- NOTE | 2021-09-08 04:55 | PM.PN ---
Subjective Subjective: Ms. Bennett had an uneventful night. Vital signs are stable. She currently remains on Levaquin. Vitals/I&O/Wt Last Vital Signs Temp 98.2 F 09/08/21 04:00 Pulse 115 H 09/08/21 04:00 Resp 20 H 09/08/21 04:00 BP 175/97 09/08/21 04:00 Pulse Ox 90 09/08/21 04:00 09/07/21 09/07/21 09/08/21 14:59 22:59 06:59 Intake Total 120 / 120 1220 / 1340 60 / 1400 Balance 120 / 120 1220 / 1340 60 / 1400 Weight last 48 hrs Weight 100 lb Physical Exam Extremity: NARRATIVE EXTREMITY EXAM: Dressing remains in place over right foot. Data : 09/07/21 04:05 09/07/21 04:05 Micro: Microbiology 09/06/21 02:00 Urine Culture - Final Urine,Clean Catch 09/05/21 23:30 Blood Culture - Preliminary Blood NEGATIVE TO DATE 09/06/21 01:24 Blood Culture - Preliminary Blood NEGATIVE TO DATE A&P Assessment and plan (1) Osteomyelitis of ankle or foot, right, acute: Osteomyelitis of the distal right fifth metatarsal and proximal fifth toe phalanx Plan: We will plan to proceed with debridement and resection of involved bone. I again did discuss with Ms. Bennett that there is concerns of wound healing related to suspected severe peripheral vascular disease that in relation to her chronic right hip and right knee contractures, may not be addressable. She stated understanding and wishes to proceed. Status: Acute Attestations Medical Necessity Statement*: Osteomyelitis of right foot. Coding Level of Care Code Acute Network Design Architect for [employer] Diagnoses Osteomyelitis of ankle or foot, right, acute M86.171
[2021-09-08] MEDS: levothyroxine 50 mcg Tablet PO (05:12)
[2021-09-08] MEDS: levofloxacin-dextrose 5 % 750 MG/150 ML PREMIX 100 MG IV (05:13)
[2021-09-08 05:50] LABS: Basophils % 0.1 %; Eosinophils # 0.2 10^3/uL (0.0-0.8); Eosinophils % 1.6 %; Hemoglobin 11.4 g/dL (11.5-15.3); Lymphocytes # 0.6 10^3/uL (0.8-4.8); Lymphocytes % 4.5 %; Mean Corpuscular HGB Conc 31.7 g/dL (30.0-36.0); Mean Corpuscular Hemoglobin 30.3 pg (28.0-34.0); Mean Corpuscular Volume 95.7 fl (81-99); Monocytes # 0.9 10^3/uL (0.2-0.9); Monocytes % 6.9 %; Neutrophils # 11.72 10^3/uL (1.8-7.7); Neutrophils % 86.5 %; Nucleated Red Blood Cells % 0 %; Platelet Count 254 10^3/cmm (130-400); Red Blood Count 3.76 10^6/uL (4.1-5.3); Red Cell Distribution Width 16.6 % (12.1-15.1); White Blood Count 13.6 10^3/uL (4.0-10.0)
[2021-09-08 06:17] LABS: Alanine Aminotransferase 9 U/L (0-33); Albumin Level 2.6 g/dL (3.5-5.2); Alkaline Phosphatase 113 IU/L (35-105); Anion Gap 12.9 (5-19); Aspartate Amino Transferase 15 U/L (0-32); Blood Urea Nitrogen 18 mg/dL (8-23); Calcium 7.2 mg/dL (8.5-10.5); Carbon Dioxide 21 mmol/L (22-29); Chloride 112 mmol/L (98-107); Creatinine Clr Calc Pharmacy 40.1616; Glucose 132 mg/dL (65-115); Osmolality Calculated 298 mOsm/kg (285-295); Potassium 3.9 mmol/L (3.5-5.1); Sodium 142 mmol/L (136-145); Total Bilirubin 0.3 mg/dL (0.15-1.2); Total Protein 5.6 g/dL (6.6-8.7)
--- NOTE | 2021-09-08 06:21 | PC.NURSE ---
Patient leaving the floor via bed accompanied by outpatient surgical staff.
[2021-09-08] MEDS: sodium chloride 0.9% 1,000 ML 30 ML IV (06:55)
[2021-09-08] MEDS: ceFAZolin 1,000 mg SDV 1000 MG IRRIGATION (07:26)
[2021-09-08] MEDS: lidocaine 2% INJ 20 mL INJECTION (07:28)
--- NOTE | 2021-09-08 07:52 | P.OP_ITS ---
Operative Report Date of procedure: September 08, 2021 Pre-op diagnosis: Preop Diagnosis osteomyelitis right foot Post-op diagnosis: same Procedure done: Incision and drainage right lateral foot wound with excision of distal one third of right fifth metatarsal and right fifth toe. Specimens removed/disposition: Distal fifth metatarsal and right fifth toe Pathology: Specimen sent for culture Surgeon: Óscar Chen Anesthesia: MAC and Local Complications: None Condition: stable Disposition: PACU Brief History: Ms. Bennett is an 81-year-old female who has been followed in wound care services for a ulceration over the fifth metatarsal head on the right foot laterally. She has had exposed bone and suspected severe peripheral vascular disease. She has chronic contracture of her right hip and right knee which resulted following previous surgery for right hip fracture. She was admitted and hospitalized on September 06 at the presentation with persistent vomiting. She was found to have leukocytosis of 35,000 as well as a urinary tract infection. She was initiated on Levaquin. MRI of her right foot reveals evidence for osteomyelitis of the distal portion of the right fifth metatarsal as well as the proximal phalanx of the right fifth toe. I have recommended surgical resection of this involved bone. Potential for poor healing related to her severe peripheral vascular disease was very frankly discussed, including the possible future need for further debridement or even subsequent major amputation. Appropriate consents have been reviewed and signed. Procedure: Ms. Bennett was taken the operating room theater carefully position on the OR table. She received monitored anesthesia by Dr. Stokes. Her entire right foot and lower leg was sterilely prepped and draped. 1% lidocaine was infiltrated along the edges of the wound and extended proximally. A #10 scalpel blade was utilized to incise through the wound extending proximally for 3 cm and distally for 2 cm. This was extended down to the bone. There was obvious bony involvement in the wound bed itself and thereby I extended the incision and dissection more proximally to I reached what visually appear to be relatively normal bone. She is noted to have severe osteopenia on her foot x-ray as well as confirmation by MRI. Once I dissected free the involved bony tissue, a TPS was utilized to transect the distal one third of the fifth metatarsal as well as a portion of the proximal phalanx of the fifth toe. Dissection was continued with Metzenbaum scissors, hemostat, and a #10 scalpel blade to remove fibrous tissue to this bony material could be removed. This was sent for culture. At this point I felt that the function of the fifth toe was lost related to the need for proximal phalanx resection, therefore I elected to proceed with amputation of the right fifth toe. Hemostasis was controlled with cautery which was used judiciously. Wound was irrigated with antibiotic solution. Hemostasis confirmed. Wet-to-dry dressing was then applied. Ms. Bennett tolerated proc edure well. She was awakened from monitored anesthesia. She was then transferred to the postoperative care unit in stable condition. I recommend continuing wet-to-dry dressing changes daily for now. I would recommend adjustment of antibiotic therapy pending results of our bone cultures.
[2021-09-08] MEDS: atorvastatin 40 mg Tablet PO (10:54)
[2021-09-08] MEDS: baclofen 10 mg Tablet 5 MG PO ×3 (10:55→20:19)
[2021-09-08] MEDS: docusate sodium 100 mg Capsule PO ×2 (10:55→16:59)
[2021-09-08] MEDS: sodium chloride 0.9% 1,000 ML 75 ML IV (10:55)
--- NOTE | 2021-09-08 11:45 | P.PN_ITS ---
Subjective Subjective: I saw Ms. Bennett after her surgical intervention today status post excision of distal one third of right fifth metatarsal right fifth toe, amputation of right fifth toe Daughter was at the bedside I will advance her diet to clear liquid We did discuss the possibilities of nitrates, beta ranjit and Botox Leukocytosis trending down Afebrile Vitals/I&O/Wt Last Vital Signs Temp 98.1 F 09/08/21 10:20 Pulse 103 H 09/08/21 11:18 Resp 16 09/08/21 11:18 BP 173/87 09/08/21 11:18 Pulse Ox 97 09/08/21 11:18 09/07/21 09/08/21 09/08/21 22:59 06:59 14:59 Intake Total 1220 / 1340 60 / 1400 2089 Output Total 0 / 0 Balance 1220 / 1340 60 / 1400 2089 Weight last 48 hrs Weight 45.359 kg Physical Exam Narrative: Very pleasant cooperative female Malnourished Cachectic Muscle mass loss She was not complaining of active nausea or vomiting S1, S2 Abdomen soft Nonfocal neuro exam Saturating well on 2 L nasal cannula Patient had dressing on the right foot Right leg contracture Data : 09/08/21 04:21 09/08/21 04:21 Micro: Microbiology 09/08/21 07:36 Gram Stain - Final Toe - #1 09/06/21 02:00 Urine Culture - Final Urine,Clean Catch A&P Assessment and plan (1) Osteomyelitis of ankle or foot, right, acute: Status: Acute (2) Dehydration: Status: Acute (3) PAD (peripheral artery disease): Status: Acute (4) Leukocytosis: Status: Acute (5) Vomiting: Status: Acute Plan Right foot osteomyelitis status post amputation of right fifth toe I will switch her to p.o. antibiotics, leukocytosis trending down, afebrile Infected tissue has been removed by Dr. Chen, will follow up with the culture report Esophageal spasm no active nausea or emesis I would add Imdur for her blood pressure that might also help her with esophageal spasm, start full liquid diet Sinus tachycardia related dehydration Continue IV fluids DNR/DNI For liquid diet DVT prophylaxis Lovenox She will go to [facility] Attestations Medical Necessity Statement*: Continue medical management Time Spent in Patient Care: 30mins Coding Level of Care Code Acute Safety [employer] Custodian for Chg Fwd Diagnoses Osteomyelitis of ankle or foot, right, acute M86.171 Dehydration E86.0 PAD (peripheral artery disease) I73.9 Leukocytosis D72.829 Vomiting R11.10
[2021-09-08] MEDS: TRAMadol 50 mg Tablet PO ×2 (13:49→21:12)
[2021-09-08] MEDS: isosorbide mononitrate ER 60 mg Tablet PO (13:50)
--- NOTE | 2021-09-08 14:50 | ANE.PACU2 ---
Inpatient post-anesthesia follow up: Airway intact: Yes Vital signs: Temperature 98.2 F Pulse Rate 98 Respiratory Rate 17 Blood Pressure 167/87 Pulse Oximetry 97 Oxygen Delivery Me thod [ Nasal Cannula Current Rate & Del yenny] Oxygen Delivery Me thod Nasal Cannula Oxygen Flow Rate [ Current Rate 3 & Delivery] Oxygen Flow Rate 3 Fraction of Inspir ed Oxygen Hydration adequate: Yes Nausea and vomiting: No Pain level: 6 Mental status: Baseline
[2021-09-08] MEDS: pantoprazole 40 mg SDV IVP (19:51)
[2021-09-08] MEDS: HYDROcodone-acetaminophen 5-325 mg Tablet 1 TAB PO (20:19)
[2021-09-08] MEDS: duloxetine 30 mg Capsule PO (20:19)
[2021-09-09] VITALS (12 sets, daily range): BP systolic 93–117; BP diastolic 58–71; PULSE 83–113; RESP 16–19; TEMP 36.5–36.7; O2SAT 80–97
[2021-09-09] MEDS: levoFLOXacin 750 mg Tablet PO (06:30)
[2021-09-09] MEDS: levothyroxine 50 mcg Tablet PO (06:30)
[2021-09-09] MEDS: TRAMadol 50 mg Tablet PO ×2 (06:32→14:57)
[2021-09-09 06:43] LABS: Basophils % 0.3 %; Eosinophils # 0.3 10^3/uL (0.0-0.8); Eosinophils % 3.7 %; Hematocrit 30.8 % (37.0-47.0); Hemoglobin 9.9 g/dL (11.5-15.3); Lymphocytes # 0.7 10^3/uL (0.8-4.8); Lymphocytes % 7.9 %; Mean Corpuscular HGB Conc 32.1 g/dL (30.0-36.0); Mean Corpuscular Volume 93.3 fl (81-99); Mean Platelet Volume 10.7 fL (7.4-10.4); Monocytes # 0.8 10^3/uL (0.2-0.9); Monocytes % 8.8 %; Neutrophils # 7.24 10^3/uL (1.8-7.7); Neutrophils % 79.1 %; Nucleated Red Blood Cells % 0 %; Platelet Count 219 10^3/cmm (130-400); Red Cell Distribution Width 16.5 % (12.1-15.1); White Blood Count 9.2 10^3/uL (4.0-10.0)
[2021-09-09 06:55] LABS: Alanine Aminotransferase 9 U/L (0-33); Albumin Level 2.3 g/dL (3.5-5.2); Alkaline Phosphatase 91 IU/L (35-105); Anion Gap 9.7 (5-19); Aspartate Amino Transferase 13 U/L (0-32); Blood Urea Nitrogen 11 mg/dL (8-23); Carbon Dioxide 24 mmol/L (22-29); Chloride 111 mmol/L (98-107); Globulin 2.5 g/dL (1.3-4.6); Glucose 87 mg/dL (65-115); Osmolality Calculated 291 mOsm/kg (285-295); Potassium 3.7 mmol/L (3.5-5.1); Sodium 141 mmol/L (136-145); Total Bilirubin 0.4 mg/dL (0.15-1.2); Total Protein 4.8 g/dL (6.6-8.7)
[2021-09-09] MEDS: baclofen 10 mg Tablet 5 MG PO ×3 (08:00→20:52)
[2021-09-09] MEDS: amlodipine 10 mg Tablet PO (08:00)
[2021-09-09] MEDS: isosorbide mononitrate ER 60 mg Tablet PO (08:00)
[2021-09-09] MEDS: atorvastatin 40 mg Tablet PO (08:00)
[2021-09-09] MEDS: docusate sodium 100 mg Capsule PO ×2 (08:00→17:33)
[2021-09-09] MEDS: HYDROcodone-acetaminophen 5-325 mg Tablet 1 TAB PO (09:50)
--- NOTE | 2021-09-09 11:08 | P.PN_ITS ---
Subjective Subjective: She has not been accepted by [place] Bleeding noticed from her wound, her dressing is soaked with blood, no active bleeding noted Hemoglobin 9.9 Hemodynamically stable She is not tachycardic I have requested case therapist to look for other places I would not discharge her until she get excepted, patient is lives alone she is afraid to go home even with home health services, and I do agree with her that at this point she will need a short-term rehab and wound care follow-up Wound culture showing cocci in clusters likely MRSA She is afebrile, I have de-escalated antibiotics to p.o. regimen Esophageal spasm better I have started amlodipine and Imdur yesterday Will touch base with Dr. Chen for wound care and dressing change Vitals/I&O/Wt Last Vital Signs Temp 98.0 F 09/09/21 07:47 Pulse 97 09/09/21 07:47 Resp 18 09/09/21 07:47 BP 111/63 09/09/21 07:47 Pulse Ox 97 09/09/21 07:47 09/08/21 09/09/21 09/09/21 22:59 06:59 14:59 Intake Total 2960.00 / 5650.00 150 / 5800.00 600 / 600 Balance 2960.00 / 5100.00 150 / 5250.00 600 / 600 Weight last 48 hrs Weight 49.396 kg Physical Exam Narrative: Patient comfortable in her bed Complaining of tolerable range of her right leg pain Her dressing is soaked with blood However I did not notice active oozing of blood Awake and alert Saturating well on 2 L nasal cannula, she should be able to wean off to room air Hemodynamically stable Abdomen soft Looks slightly more hydrated as compared to yesterday I have discontinued her IV fluids, she is able to tolerate her diet Data : 09/09/21 05:00 09/09/21 05:00 Micro: Microbiology 09/08/21 07:36 Gram Stain - Final Toe - #1 A&P Assessment and plan (1) Osteomyelitis of ankle or foot, right, acute: Status: Acute (2) Dehydration: Status: Acute (3) PAD (peripheral artery disease): Status: Acute (4) Leukocytosis: Status: Acute (5) Vomiting: Status: Acute Plan Right fifth metatarsal amputation Postop day 1 Afebrile Saturating well on room air Dressing soaked with blood No significant drop in hemoglobin, hemodynamically stable Will wait until Dr. Chen evaluate her today before dressing change Hold DVT prophylaxis Start p.o. doxycycline Do not think she would need IV antibiotics Awaiting [facility] placement and she will need outpatient wound care follow- up Has been declined by [facility], asked case therapist to look for other places patient is unsafe to return home as she lives alone Advance diet to mechanical soft She is not an ideal candidate for SCDs or anticoagulating agent for her DVT p rophylaxis because of vascular disease and active bleeding from her wound Sinus tachycardia improved with IV fluids Esophageal spasm improved with use of amlodipine and Imdur DNR/DNI Attestations Medical Necessity Statement*: Continue medical manage Time Spent in Patient Care: 30 Coding Level of Care Code Acute Doctor Of Naturopathic Medicine for [facility] Fwd Diagnoses Osteomyelitis of ankle or foot, right, acute M86.171 Dehydration E86.0 PAD (peripheral artery disease) I73.9 Leukocytosis D72.829 Vomiting R11.10
--- NOTE | 2021-09-09 11:47 | PC.SOCIAL ---
Pg 2 IMM Explained to pt Pg 2 IMM. No questions voiced. Provided pt a copy. Initialed, dated, & timed a copy & placed in chart.
[2021-09-09 15:30] LABS: Hemoglobin 10.5 g/dL (11.5-15.3)
[2021-09-09] MEDS: doxycycline 100 mg Tablet PO (17:33)
[2021-09-09] MEDS: duloxetine 30 mg Capsule PO (20:52)
[2021-09-09] MEDS: pantoprazole 40 mg SDV IVP (20:52)
[2021-09-10] VITALS (14 sets, daily range): BP systolic 113–133; BP diastolic 57–73; PULSE 94–111; RESP 12–20; TEMP 36.6–37.1; O2SAT 88–94
[2021-09-10] MEDS: TRAMadol 50 mg Tablet PO ×3 (00:28→20:34)
[2021-09-10] MEDS: ipratropium-albuterol 3 mL Neb INHALATION ×5 (03:28→19:48)
[2021-09-10 04:05] LABS: Basophils % 0.4 %; Eosinophils # 0.3 10^3/uL (0.0-0.8); Eosinophils % 3.3 %; Hematocrit 32.5 % (37.0-47.0); Hemoglobin 10.6 g/dL (11.5-15.3); Lymphocytes % 9.9 %; Mean Corpuscular HGB Conc 32.6 g/dL (30.0-36.0); Mean Corpuscular Hemoglobin 30.5 pg (28.0-34.0); Mean Corpuscular Volume 93.7 fl (81-99); Mean Platelet Volume 10.7 fL (7.4-10.4); Monocytes % 9.9 %; Neutrophils # 7.56 10^3/uL (1.8-7.7); Neutrophils % 76.2 %; Nucleated Red Blood Cells % 0 %; Platelet Count 235 10^3/cmm (130-400); Red Blood Count 3.47 10^6/uL (4.1-5.3); Red Cell Distribution Width 16.7 % (12.1-15.1); White Blood Count 9.9 10^3/uL (4.0-10.0)
[2021-09-10 04:25] LABS: Anion Gap 8.3 (5-19); Blood Urea Nitrogen 14 mg/dL (8-23); Calcium 7.1 mg/dL (8.5-10.5); Carbon Dioxide 27 mmol/L (22-29); Chloride 108 mmol/L (98-107); Glucose 111 mg/dL (65-115); Osmolality Calculated 289 mOsm/kg (285-295); Potassium 4.3 mmol/L (3.5-5.1); Sodium 139 mmol/L (136-145)
[2021-09-10] MEDS: levothyroxine 50 mcg Tablet PO (05:41)
--- NOTE | 2021-09-10 09:55 | PM.PN ---
Subjective Subjective: Patient is experiencing multiple episodes of emesis She is denying nausea She is endorsing esophageal spasm I will de-escalate her dietary plan to full liquid Stating that she is not ready for another endoscopy Foot dressing was changed yesterday No active bleeding Hemoglobin has stayed stable Vitals/I&O/Wt Last Vital Signs Temp 98.8 F 09/10/21 08:00 Pulse 102 H 09/10/21 08:00 Resp 20 H 09/10/21 07:35 BP 127/64 09/10/21 08:00 Pulse Ox 88 L 09/10/21 08:00 09/09/21 09/10/21 09/10/21 22:59 06:59 14:59 Intake Total 290 / 1370 460 / 1830 Output Total 0 / 0 Balance 290 / 1370 460 / 1830 Weight last 48 hrs Weight 50.031 kg Weight 49.396 kg Physical Exam Narrative: Signs of dehydration Protein calorie malnourishment Abdomen soft S1, S2 sinus tachycardia Signs of dehydration Awake and alert She is regurgitating food Right foot dressing is not soaked with blood today Dressing was changed yesterday Data : 09/10/21 03:45 09/10/21 03:45 Micro: Microbiology 09/08/21 07:36 Gram Stain - Final Toe - #1 Wound Culture - Preliminary A&P Assessment and plan (1) Osteomyelitis of ankle or foot, right, acute: Status: Acute (2) Dehydration: Status: Acute (3) PAD (peripheral artery disease): Status: Acute (4) Leukocytosis: Status: Acute (5) Vomiting: Status: Acute (6) Esophageal spasm: Status: Acute Plan Diffuse esophageal spasm Patient is regurgitating food De-escalate dietary plan to full liquid patient is not ready for another endoscopy However if her symptoms worsen I will try to emphasize for another EGD Previous EGD by Dr. Thacker Continue amlodipine and Imdur Postop day 2 Afebrile Hemoglobin stable No leukocytosis Continue doxycycline for MRSA coverage Awaiting placement Wet-to-dry dressing change daily basis Patient will follow up with Dr. Chen outpatient for vascular studies DNR/DNI Full liquid diet Start Lovenox DVT prophylaxis hemoglobin has remained stable Attestations Medical Necessity Statement*: Continue medical management Time Spent in Patient Care: 25min Coding Level of Care Code Acute Community Living Coach for [facility] Fwd Diagnoses Osteomyelitis of ankle or foot, right, acute M86.171 Dehydration E86.0 PAD (peripheral artery disease) I73.9 Leukocytosis D72.829 Vomiting R11.10 Esophageal spasm K22.4
[2021-09-10] MEDS: doxycycline 100 mg Tablet PO ×2 (10:01→17:39)
[2021-09-10] MEDS: isosorbide mononitrate ER 60 mg Tablet PO (10:02)
[2021-09-10] MEDS: atorvastatin 40 mg Tablet PO (10:02)
[2021-09-10] MEDS: baclofen 10 mg Tablet 5 MG PO ×3 (10:03→20:34)
[2021-09-10] MEDS: amlodipine 10 mg Tablet PO (10:03)
[2021-09-10] MEDS: docusate sodium 100 mg Capsule PO ×2 (10:03→17:39)
[2021-09-10] MEDS: sodium chloride 0.9% 1,000 ML 30 ML IV (11:28)
[2021-09-10] MEDS: enoxaparin 40 mg/0.4 mL Syringe SUBCUT (11:28)
[2021-09-10] MEDS: duloxetine 30 mg Capsule PO (20:34)
[2021-09-10] MEDS: pantoprazole 40 mg SDV IVP (20:35)
[2021-09-11] VITALS (15 sets, daily range): BP systolic 103–162; BP diastolic 51–78; PULSE 99–117; RESP 16–20; TEMP 36.6–36.8; O2SAT 86–95
[2021-09-11] MEDS: ipratropium-albuterol 3 mL Neb INHALATION ×7 (00:58→23:21)
[2021-09-11 04:28] LABS: Basophils # 0.1 10^3/uL (0.0-0.1); Basophils % 0.6 %; Eosinophils # 0.3 10^3/uL (0.0-0.8); Hematocrit 32.7 % (37.0-47.0); Hemoglobin 10.6 g/dL (11.5-15.3); Lymphocytes # 0.9 10^3/uL (0.8-4.8); Lymphocytes % 8.9 %; Mean Corpuscular HGB Conc 32.4 g/dL (30.0-36.0); Mean Corpuscular Hemoglobin 30.5 pg (28.0-34.0); Mean Corpuscular Volume 94.2 fl (81-99); Monocytes # 0.9 10^3/uL (0.2-0.9); Monocytes % 9.4 %; Neutrophils # 7.53 10^3/uL (1.8-7.7); Neutrophils % 77.5 %; Nucleated Red Blood Cells % 0 %; Platelet Count 242 10^3/cmm (130-400); Red Blood Count 3.47 10^6/uL (4.1-5.3); Red Cell Distribution Width 16.4 % (12.1-15.1); White Blood Count 9.7 10^3/uL (4.0-10.0)
--- NOTE | 2021-09-11 04:33 | PC.NURSE ---
Right ankle more edematous and hot to touch. Notified Dr. Prajapati. Right heel boggy/red. Applied heel protectors to bilateral heels.
[2021-09-11] MEDS: TRAMadol 50 mg Tablet PO ×2 (04:42→20:12)
[2021-09-11] MEDS: levothyroxine 50 mcg Tablet PO (04:43)
--- NOTE | 2021-09-11 08:03 | XRR_ITS ---
PROCEDURE INFORMATION: Exam: XR Chest Exam date and time: 09/11/2021 8:12 AM Age: 81 years old Clinical indication: Dyspnea; Additional info: Asp TECHNIQUE: Imaging protocol: XR of the chest. Views: 1 view. COMPARISON: CT chest abd pel w con* 09/06/2021 12:22 AM FINDINGS: Lungs: Emphysematous disease and prominent scarring in the lungs. Questionable mildly increased ground-glass density in the lung bases slightly worse on the left versus the right. Pleural spaces: Blunting of the left costophrenic angle. Heart/Mediastinum: The cardiomediastinal silhouette is within normal limits. Bones/joints: Unremarkable. XR/XR chest 1V portable [id number] IMPRESSION: 1. Small left-sided pleural effusion. 2. Questionable mildly increased ground-glass density in the lung bases slightly worse on the left versus the right. Findings may be consistent with atelectasis, layering pleural fluid, but cannot exclude pneumonia. The remainder of the lung parenchyma is clear. 3. Prominent emphysematous disease and pulmonary scarring.
--- NOTE | 2021-09-11 08:05 | PC.SOCIAL ---
IMM updated IMM dated and initialed and copy put in chart and given to patient
[2021-09-11] MEDS: amlodipine 10 mg Tablet PO (09:30)
[2021-09-11] MEDS: enoxaparin 40 mg/0.4 mL Syringe SUBCUT (09:31)
[2021-09-11] MEDS: doxycycline 100 mg Tablet PO ×2 (09:31→18:20)
[2021-09-11] MEDS: atorvastatin 40 mg Tablet PO (09:31)
[2021-09-11] MEDS: baclofen 10 mg Tablet 5 MG PO ×3 (09:31→20:09)
[2021-09-11] MEDS: docusate sodium 100 mg Capsule PO ×2 (09:31→18:20)
[2021-09-11] MEDS: isosorbide mononitrate ER 60 mg Tablet PO (09:31)
[2021-09-11] MEDS: sodium chloride 0.9% 1,000 ML 30 ML IV (09:32)
--- NOTE | 2021-09-11 10:35 | PM.PN ---
Subjective Subjective: Patient is not endorsing events stating that she is tolerating her liquid diet Swelling of right ankle noted No fever no leukocytosis Hemoglobin is stable Patient requesting refill opiates could be changed to q. 45 every 6 hours I asked her we can turn off fluids if she is able to tolerate her lunch and keep her meal down. On 4 L nasal cannula requested chest x-ray Vitals/I&O/Wt Last Vital Signs Temp 97.9 F 09/11/21 07:43 Pulse 110 H 09/11/21 07:48 Resp 16 09/11/21 07:48 BP 137/63 09/11/21 07:43 Pulse Ox 93 09/11/21 07:48 09/10/21 09/11/21 09/11/21 22:59 06:59 14:59 Intake Total 120 / 120 50 / 170 662 / 662 Balance 120 / 120 50 / 170 662 / 662 Weight last 48 hrs Weight 50.031 kg Physical Exam Narrative: Patient laying in her bed She has stage I buttocks ulcer Swelling and redness noted of right ankle Pedal edema No signs of ischemic ulcer Looks dehydrated Awake and alert Currently on 4 L nasal cannula Data : 09/11/21 03:37 09/10/21 03:45 Micro: Microbiology 09/05/21 23:30 Blood Culture - Final Blood NO GROWTH AFTER 5 DAYS 09/06/21 01:24 Blood Culture - Final Blood NO GROWTH AFTER 5 DAYS 09/08/21 07:36 Gram Stain - Final Toe - #1 Wound Culture - Preliminary Gram Negative Rods A&P Assessment and plan (1) Esophageal spasm: Status: Acute (2) Osteomyelitis of ankle or foot, right, acute: Status: Acute (3) Dehydration: Status: Acute (4) PAD (peripheral artery disease): Status: Acute (5) Vomiting: Status: Acute Plan Right foot osteomyelitis status post amputation Leukocytosis improved Currently on doxycycline for MRSA coverage Hypoxia related to atelectasis and pleural effusion Wean her oxygen off At home she does not use oxygen Concern for pneumonia however she has been afebrile, leukocytosis improved after amputation Chronic fracture of her back Based on buttocks ulcer Swelling of right ankle Repeat foot x-ray Mild redness noted as well No signs of ischemic ulcers Opioids and bowel regimen Esophageal spasm Imdur amlodipine, doing well on liquid diet I would not advance her diet Plan to discharge her to rehab on Sunday or Sunday accepted DNR/DNI DVT prophylaxis on board Wet-to-dry wound care/ dressing once daily Attestations Medical Necessity Statement*: Continue medical management Time Spent in Patient Care: 30 Coding Level of Care Code Acute Chief Nurse Anesthetist for [facility] Fwd Diagnoses Esophageal spasm K22.4 Osteomyelitis of ankle or foot, right, acute M86.171 Dehydration E86.0 PAD (peripheral artery disease) I73.9 Vomiting R11.10
--- NOTE | 2021-09-11 10:43 | XRR_ITS ---
PROCEDURE INFORMATION: Exam: XR Right Foot Exam date and time: 09/11/2021 11:23 AM Age: 81 years old Clinical indication: Pain; Right; Prior surgery; Surgery date: 3-7 days post-operative; Surgery type: RT foot 5th digit amputation. Patient HX: PT has edema but the nurse stated this looks different. ; Additional info: Swelling and pain TECHNIQUE: Imaging protocol: XR Right foot. Views: 1 or 2 views. COMPARISON: CR (LOW EXM, ) 09/06/2021 2:52 AM FINDINGS: Bones/joints: Amputation of the 5th digit at the level of the base of the 5th metatarsal. There is some contour irregularity of the 5th metatarsal at the amputation site. Generalized osteopenia. Multi-articular primary osteoarthritic changes including joint space narrowing, subchondral cystic/sclerotic changes, and marginal osteophyte formations. Soft tissues: There is edema and thickening of the soft tissues surrounding the foot most prominent adjacent to the amputation site. XR/XR foot RT 2V [id number] IMPRESSION: 1. There is some contour irregularity of the 5th metatarsal at the amputation site and osteomyelitis cannot be excluded. 2. Generalized osteopenia. 3. There is edema and thickening of the soft tissues surrounding the foot most prominent adjacent to the amputation site.
[2021-09-11] MEDS: duloxetine 30 mg Capsule PO (20:08)
[2021-09-11] MEDS: pantoprazole 40 mg SDV IVP (20:33)
[2021-09-12] VITALS (13 sets, daily range): BP systolic 114–156; BP diastolic 61–74; PULSE 107–116; RESP 16–20; TEMP 36.8–37.2; O2SAT 90–96
[2021-09-12] MEDS: ipratropium-albuterol 3 mL Neb INHALATION ×6 (03:08→23:48)
[2021-09-12 04:36] LABS: Basophils # 0.1 10^3/uL (0.0-0.1); Basophils % 0.7 %; Eosinophils # 0.4 10^3/uL (0.0-0.8); Eosinophils % 4.2 %; Hematocrit 34.1 % (37.0-47.0); Hemoglobin 11.2 g/dL (11.5-15.3); Lymphocytes # 0.8 10^3/uL (0.8-4.8); Lymphocytes % 8.1 %; Mean Corpuscular HGB Conc 32.8 g/dL (30.0-36.0); Mean Corpuscular Volume 91.4 fl (81-99); Mean Platelet Volume 10.4 fL (7.4-10.4); Monocytes # 0.9 10^3/uL (0.2-0.9); Monocytes % 8.9 %; Neutrophils # 7.69 10^3/uL (1.8-7.7); Neutrophils % 77.4 %; Nucleated Red Blood Cells % 0 %; Platelet Count 262 10^3/cmm (130-400); Red Blood Count 3.73 10^6/uL (4.1-5.3); White Blood Count 9.9 10^3/uL (4.0-10.0)
[2021-09-12 04:56] LABS: Anion Gap 13.3 (5-19); Blood Urea Nitrogen 7 mg/dL (8-23); Calcium 7.5 mg/dL (8.5-10.5); Carbon Dioxide 23 mmol/L (22-29); Chloride 106 mmol/L (98-107); Glucose 121 mg/dL (65-115); Osmolality Calculated 285 mOsm/kg (285-295); Potassium 4.3 mmol/L (3.5-5.1); Sodium 138 mmol/L (136-145)
[2021-09-12] MEDS: levoFLOXacin 750 mg Tablet PO (05:45)
[2021-09-12] MEDS: levothyroxine 50 mcg Tablet PO (05:45)
[2021-09-12] MEDS: doxycycline 100 mg Tablet PO ×2 (09:30→17:32)
[2021-09-12] MEDS: baclofen 10 mg Tablet 5 MG PO ×3 (09:30→20:17)
[2021-09-12] MEDS: amlodipine 10 mg Tablet PO (09:31)
[2021-09-12] MEDS: isosorbide mononitrate ER 60 mg Tablet PO (09:31)
[2021-09-12] MEDS: atorvastatin 40 mg Tablet PO (09:31)
[2021-09-12] MEDS: enoxaparin 40 mg/0.4 mL Syringe SUBCUT (10:04)
[2021-09-12] MEDS: TRAMadol 50 mg Tablet PO ×2 (11:43→20:17)
--- NOTE | 2021-09-12 13:19 | P.PN_ITS ---
Subjective Subjective: Patient is awaiting placement No overnight events She is tolerating her liquid diet Afebrile She does not feel dehydrated anymore I have discontinued her IV fluids today website project manager updated Vitals/I&O/Wt Last Vital Signs Temp 98.5 F 09/12/21 12:00 Pulse 116 H 09/12/21 12:00 Resp 16 09/12/21 12:00 BP 114/61 09/12/21 12:00 Pulse Ox 91 09/12/21 12:00 09/11/21 09/12/21 09/12/21 22:59 06:59 14:59 Intake Total 1981 150 / 2132 Balance 1981 150 / 2132 Physical Exam Narrative: Daughter at the bedside S1, S2 Does not look clinically dehydrated In good spirits Right ankle is still swollen with mild redness Abdomen soft Nonfocal neuro exam Right leg contracture Data : 09/12/21 04:21 09/12/21 04:21 Micro: Microbiology 09/08/21 07:36 Gram Stain - Final Toe - #1 Wound Culture - Final Pseudomonas aeruginosa A&P Assessment and plan (1) Osteomyelitis of ankle or foot, right, acute: Status: Acute (2) Esophageal spasm: Status: Acute (3) Dehydration: Status: Acute (4) PAD (peripheral artery disease): Status: Acute (5) Leukocytosis: Status: Acute (6) Vomiting: Status: Acute Plan Right foot osteomyelitis status post amputation No postop complications I have noted swelling or redness however repeat x-ray showing postsurgical changes Currently she is on p.o. antibiotics Afebrile Leukocytosis improved Esophageal spasm, currently doing well on liquid diet amlodipine and Imdur started Dehydration: Improved discontinue IV fluids Awaiting placement DNR/DNI Peripheral arterial disease still at risk of amputation Lives alone, she cannot take care of her especially after her amputation, she will need short-term rehab and outpatient wound care follow-up Attestations Medical Necessity Statement*: Awaiting placement Time Spent in Patient Care: 30 Coding Level of Care Code Acute Corporate Physical Security Supervisor for [facility] Diagnoses Osteomyelitis of ankle or foot, right, acute M86.171 Esophageal spasm K22.4 Dehydration E86.0 PAD (peripheral artery disease) I73.9 Leukocytosis D72.829 Vomiting R11.10
--- NOTE | 2021-09-12 13:24 | ECG_ITS ---
[facility] Test Date: 2021-09-12 Pat Name: Gina Bennett Department: Room: 252 Gender: Female Administrative Support Assistant: : 1940 Requested By: Hermilo Lee Order Number: [id number] Saida MD: Alejandrina Francois M.D. Measurements Intervals [place] Rate: 110 P: 66 HI: 118 QRS: 59 QRSD: 89 T: 63 QT: 318 QTc: 431 Interpretive Statements SINUS TACHYCARDIA WITH SHORT HI INTERVAL POSSIBLE LEFT ATRIAL ENLARGEMENT [-0.1mV P-WAVE IN V1/V2] ABNORMAL RHYTHM ECG Compared to ECG 09/06/2021 07:21:39 ST (T wave) deviation no longer present Electronically Signed On 09-12-2021 19:46:19 CDT by Alejandrina Francois M.D. [id number]
--- NOTE | 2021-09-12 13:28 | CT_ITS ---
WS: [id number] CT CHEST ANGIOGRAPHY WITH REFORMATS HISTORY: Hypoxia. TECHNIQUE: Contiguous axial images are obtained through the chest during arterial injection of intrav enous contrast. Images are reconstructed to evaluate the pulmonary arteries. MIP imaging also reviewe d. All CT scans at [facility] use at least one of these dose optimization techniques: automat ed exposure control; mA and/or kV adjustment per patient size (includes targeted exams where dose is matched to clinical indication); or iterative reconstruction. CONTRAST: Omnipaque 350; 75 mL IV. DLP: 456.39 mGy.cm COMPARISON: 09/06/2021 Good opacification of the pulmonary arteries. No central pulmonary embolism is identified. Opacificat ion of the pulmonary arteries is excellent. Visualization of the pulmonary arteries in the lower lung mckeon is limited by the pleural effusion. Pulmonary artery size is enlarged. Severe changes of emph ysema. Abnormal development of small to moderate bilateral pleural effusions. Extensive atherosclerosis within the thoracic aorta. No aneurysm. Bilateral hilar mildly enlarged lym ph nodes with the largest on the RIGHT at 11 mm. Heart is moderately enlarged. No effusion. Stomach is dilated and distended with fluid. Incompletely visualized cyst within the upper posterior LEFT abdomen may be related to the kidney. Extensive atherosclerotic plaque continues into the upper abdominal aorta. 20% T10 compression fracture without retropulsion is stable. CT/CT angio chest PE protcl [id number] IMPRESSION: 1. No pulmonary embolism. 2. New small bilateral pleural effusions with bibasilar atelectasis at the reese g bases. 3. Severe emphysema. 4. Pulmonary hypertension. 5. Small indeterminate bilateral hilar lymph nodes. Probably reactive.
[2021-09-12 14:11] LABS: D Dimer 1.76 ug/mIFEU (0-0.59)
[2021-09-12] MEDS: iohexol 350 mg/mL 100 mL Btl IV (14:28)
[2021-09-12 16:57] LABS: SARS Covid-2 Antigen Negative (Negative)
[2021-09-12] MEDS: pantoprazole 40 mg SDV IVP (20:17)
[2021-09-12] MEDS: duloxetine 30 mg Capsule PO (20:17)
[2021-09-13] VITALS (10 sets, daily range): BP systolic 109–156; BP diastolic 56–82; PULSE 77–119; RESP 16–20; TEMP 36.6–37; O2SAT 88–96
[2021-09-13] MEDS: ipratropium-albuterol 3 mL Neb INHALATION ×2 (03:28→08:56)
[2021-09-13] MEDS: levoFLOXacin 750 mg Tablet PO (05:18)
[2021-09-13] MEDS: levothyroxine 50 mcg Tablet PO (05:18)
[2021-09-13 05:38] LABS: Basophils # 0.1 10^3/uL (0.0-0.1); Basophils % 0.5 %; Eosinophils # 0.4 10^3/uL (0.0-0.8); Eosinophils % 3.6 %; Hematocrit 32.9 % (37.0-47.0); Hemoglobin 11.1 g/dL (11.5-15.3); Lymphocytes # 0.7 10^3/uL (0.8-4.8); Mean Corpuscular HGB Conc 33.7 g/dL (30.0-36.0); Mean Corpuscular Hemoglobin 29.8 pg (28.0-34.0); Mean Corpuscular Volume 88.4 fl (81-99); Mean Platelet Volume 11.2 fL (7.4-10.4); Monocytes # 1.1 10^3/uL (0.2-0.9); Monocytes % 10.7 %; Neutrophils # 7.64 10^3/uL (1.8-7.7); Neutrophils % 77.8 %; Nucleated Red Blood Cells % 0 %; Platelet Count 268 10^3/cmm (130-400); Red Blood Count 3.72 10^6/uL (4.1-5.3); Red Cell Distribution Width 15.5 % (12.1-15.1); White Blood Count 9.8 10^3/uL (4.0-10.0)
[2021-09-13 06:00] LABS: Anion Gap 13.1 (5-19); Blood Urea Nitrogen 6 mg/dL (8-23); Calcium 7.9 mg/dL (8.5-10.5); Carbon Dioxide 22 mmol/L (22-29); Chloride 104 mmol/L (98-107); Glucose 100 mg/dL (65-115); Osmolality Calculated 278 mOsm/kg (285-295); Potassium 4.1 mmol/L (3.5-5.1); Sodium 135 mmol/L (136-145)
--- NOTE | 2021-09-13 08:08 | USCV_ITS ---
Gina Bennett Age: 81 Gender: F : 1940 Exam Date: 09/13/2021 09:24 Ordering Phys: Hermilo Lee MD Technologist: MINDY Exam Location: [facility] [place] Indication: RLE SWELLING AND PAIN HISTORY: Lower extremity pain. Lower extremity swelling. PROCEDURES: Venous duplex imaging was performed in only the right lower extremity. The following venous structures were evaluated: common femoral vein, profunda vein, proximal portion of the greater saphenous vein, superficial femoral vein, and the popliteal vein. In addition, the posterior tibial and peroneal trunk were evaluated. Serial compression, augmentation maneuvers, and spectral Doppler flow evaluation were performed. FINDINGS: No evidence of DVT seen in any vessel visualized at this time. Very limited and difficult exam due to patient being in contracted position. Right peroneal veins not seen. CONCLUSIONS No DVT right lower extremity. Limited by patients condition. Dr. Esthela Mueller DO (Electronically Signed) Final Date: 13 September 2021 12:00 S
--- NOTE | 2021-09-13 09:26 | PC.SOCIAL ---
IMM Update pg 2 of IMM updated and reviewed w/ patient. Copy provided and Copy in chart updated.
[2021-09-13] MEDS: amlodipine 10 mg Tablet PO (09:39)
[2021-09-13] MEDS: atorvastatin 40 mg Tablet PO (09:40)
[2021-09-13] MEDS: TRAMadol 50 mg Tablet PO ×2 (09:40→15:48)
[2021-09-13] MEDS: isosorbide mononitrate ER 60 mg Tablet PO (09:40)
[2021-09-13] MEDS: baclofen 10 mg Tablet 5 MG PO ×3 (09:41→22:25)
[2021-09-13] MEDS: doxycycline 100 mg Tablet PO ×2 (09:41→18:06)
--- NOTE | 2021-09-13 10:20 | PC.CHAP ---
Pastoral Care Encounter/Spiritual Assessment Type of Contact [] Declined hair specialist visit [] Patient/Family/Request visit [] Outpatient visit [] Follow-up visit [] Physician referral [] Code/Alert [x] Routine visit [] Staff referral [] Actively dying [] Patient sleeping [] Family support [] [] Out of room [] Palliative care [] [] Receiving care in room [] Pre-surgical visit [] Trauma [] Long length of stay [] ICU visit [] Other: Relational/Emotional Strength x[] Patient feels connected with others/family/visitors/staff [] Distress [] Loneliness/isolation [] Abandonment Spirituality of Patient [x] Person of Lolly [x] Attends Mu-Ism of their Lolly [x] Believes in Prayer [x] Reads Bible or Baptism materials [] There are Spiritual issues to be addressed District Sales Manager Interventions [x] Prayer [x Active listening [x] Non-anxious presence [x] Spiritual/emotional support [] Crisis/trauma care [] Spiritual counseling [] Bereavement support [] Provided bereavement packet [] Provided Bible/devotional materials [] Provided toy/stuffed animal, coloring book to patient or family member [] Provided Communion [] Anointing/[place] [] Salvation [x] Completed spiritual assessment [] Other: Impact on Illness or Injury [] Angry [] Fearful [x] Anxious [] Often cries [] Exhaustion [] Unable to work [] Unable to attend yarsanism [] Unable to walk/stand [] Unable to read [] Unable to drive [] Unable to eat/drink [] Unable to sleep [] Unable to be with family [] Patient intubated [] Other: Summary Time spent with patient 10 min
--- NOTE | 2021-09-13 10:42 | USCV_ITS ---
Gina Bennett Age: 81 Gender: F : 1940 Exam Date: 09/13/2021 13:30 Ordering Phys: Hermilo Lee MD Technologist: MINDY [place] [facility] [place]: CHRONIC HEART FAILURE BP: 142 / 60 HR: 104 Rhythm: Sinus Technical Quality: Suboptimal MEASUREMENTS (Male / Female) Normal Values 2D ECHO LV Diastolic Diameter PLAX 3.6 cm 4.2 - 5.9 / 3.9 - 5.3 cm LV Systolic Diameter PLAX 2.1 cm IVS Diastolic Thickness 1.3 cm 0.6 - 1.0 / 0.6 - 0.9 cm IVS Systolic Thickness 1.6 cm LVPW Diastolic Thickness 1.1 cm 0.6 - 1.0 / 0.6 - 0.9 cm LVPW Systolic Thickness 1.4 cm LVOT Diameter 2.0 cm LV Ejection Fraction 2D Teich 72.2 % LA Diameter 2.3 cm Aorta at Sinotubular Diameter 2.1 cm IVC Diameter 0.9 cm M-MODE Aortic Annulus Diameter 3.2 cm LA Ao Ratio MM 0.7 MV E Point Septal Separation 0.6 cm DOPPLER Right Atrial Pressure 3.0 mmHg FINDINGS Left Ventricle Normal left ventricular size and grossly possibly mildly decreased systolic function. This study is inadequate for estimation of regional wall motion abnormality. Right Ventricle Right ventricle not well visualized. Right Atrium Right atrial pressure estimated at 3 mmHg. Left Atrium Probably normal left atrial size. Mitral Valve Moderate mitral annular calcification. Thickened mitral valve. Aortic Valve Aortic valve not well visualized. Tricuspid Valve Structurally normal tricuspid valve. Mild tricuspid valve regurgitation. Pulmonic Valve Pulmonic valve not well visualized. Pericardium No pericardial effusion. Aorta Normal-sized aortic root. IVC Normal IVC dimension. CONCLUSIONS 1. This is a technically difficult study with poor windows. 2. Normal left ventricular size and grossly possibly mildly decreased systolic function. This study is inadequate for estimation of regional wall motion abnormality. 3. No prior similar studies to compare. Mya Wild MD (Electronically Signed) Final Date: 13 September 2021 17:16 S
--- NOTE | 2021-09-13 10:44 | PM.PN ---
Subjective Subjective: Patient is on 6 L today complaining of pain in her leg She was not able to sleep Chest x-ray reviewed which is showing clear signs of vascular congestion, I will place Clay catheter as she also has decubitus ulcer and give her 60 mg of IV Lasix Vitals/I&O/Wt Last Vital Signs Temp 98.0 F 09/13/21 07:44 Pulse 102 H 09/13/21 08:57 Resp 16 09/13/21 08:57 BP 151/68 09/13/21 07:44 Pulse Ox 94 09/13/21 08:57 09/12/21 09/13/21 09/13/21 22:59 06:59 14:59 Intake Total 600 / 960 540 / 540 Balance 600 / 960 540 / 540 Physical Exam Narrative: Clinically she does not look fluid overloaded however she does have swelling of her right leg Erythema of right leg improving No active bleeding S1, S2 sinus tachycardia Currently on 6 L nasal cannula high flow Abdomen soft Nonfocal neuro exam Data : 09/13/21 04:43 09/13/21 04:43 A&P Assessment and plan (1) Esophageal spasm: Status: Acute (2) Osteomyelitis of ankle or foot, right, acute: Status: Acute (3) Dehydration: Status: Acute (4) PAD (peripheral artery disease): Status: Acute (5) Leukocytosis: Status: Acute (6) Vomiting: Status: Acute (7) CHF exacerbation: Status: Acute Plan Right foot osteomyelitis status post intervention Pseudomonas growing from the culture currently on Levaquin and doxycycline Acute hypoxia CHF exacerbation evident on chest x-ray Requested BNP, echo, will place Clay catheter and give 60 mg of IV Lasix She is sinus tachycardic No signs of PE, requested venous Doppler This could be related to pain Peripheral vascular disease she is still at risk of amputation Outpatient follow-up with Dr. Chen Cardiac diet Hypothyroid: Continue levothyroxine She is not ready to be discharged to [facility], I would like her oxygen level to come down between 3 to 4 L Currently she is requiring 6 L of oxygen Attestations Medical Necessity Statement*: Continue medical management Time Spent in Patient Care: 30 Coding Level of Care Code Acute Post Anesthesia Care Unit Nurse for [facility] Fwd Diagnoses Esophageal spasm K22.4 Osteomyelitis of ankle or foot, right, acute M86.171 Dehydration E86.0 PAD (peripheral artery disease) I73.9 Leukocytosis D72.829 Vomiting R11.10 CHF exacerbation I50.9
[2021-09-13 11:42] LABS: NT Pro B Type Natriuretic Pept 4023 pg/mL (0-450)
[2021-09-13] MEDS: enoxaparin 40 mg/0.4 mL Syringe SUBCUT (11:47)
[2021-09-13] MEDS: FUROsemide 10 mg/mL SDV 10mL 60 MG IVP (14:04)
[2021-09-13] MEDS: docusate sodium 100 mg Capsule PO (18:06)
[2021-09-13] MEDS: duloxetine 30 mg Capsule PO (22:26)
[2021-09-13] MEDS: FUROsemide 10 mg/mL SDV 4mL 40 MG IVP (22:26)
[2021-09-13] MEDS: pantoprazole DR 40 mg Tablet PO (22:26)
[2021-09-14] VITALS (13 sets, daily range): BP systolic 106–124; BP diastolic 51–88; PULSE 87–117; RESP 12–20; TEMP 36.4–36.6; O2SAT 86–98
[2021-09-14 05:12] LABS: Basophils % 0.4 %; Eosinophils # 0.4 10^3/uL (0.0-0.8); Eosinophils % 3.9 %; Hematocrit 35.4 % (37.0-47.0); Hemoglobin 11.8 g/dL (11.5-15.3); Lymphocytes # 0.7 10^3/uL (0.8-4.8); Lymphocytes % 8.1 %; Mean Corpuscular HGB Conc 33.3 g/dL (30.0-36.0); Mean Corpuscular Hemoglobin 29.8 pg (28.0-34.0); Mean Corpuscular Volume 89.4 fl (81-99); Mean Platelet Volume 10.6 fL (7.4-10.4); Monocytes % 11.2 %; Neutrophils # 6.78 10^3/uL (1.8-7.7); Nucleated Red Blood Cells % 0 %; Platelet Count 281 10^3/cmm (130-400); Red Blood Count 3.96 10^6/uL (4.1-5.3); Red Cell Distribution Width 15.3 % (12.1-15.1); White Blood Count 8.9 10^3/uL (4.0-10.0)
[2021-09-14 05:27] LABS: Anion Gap 13.4 (5-19); Blood Urea Nitrogen 8 mg/dL (8-23); Calcium 8.1 mg/dL (8.5-10.5); Carbon Dioxide 26 mmol/L (22-29); Chloride 97 mmol/L (98-107); Glucose 101 mg/dL (65-115); Osmolality Calculated 274 mOsm/kg (285-295); Potassium 3.4 mmol/L (3.5-5.1); Sodium 133 mmol/L (136-145)
[2021-09-14] MEDS: levoFLOXacin 750 mg Tablet PO (06:17)
[2021-09-14] MEDS: levothyroxine 50 mcg Tablet PO (06:17)
[2021-09-14] MEDS: ipratropium-albuterol 3 mL Neb INHALATION ×5 (08:58→23:12)
[2021-09-14] MEDS: doxycycline 100 mg Tablet PO ×2 (10:17→18:14)
[2021-09-14] MEDS: docusate sodium 100 mg Capsule PO (10:17)
[2021-09-14] MEDS: atorvastatin 40 mg Tablet PO (10:18)
[2021-09-14] MEDS: isosorbide mononitrate ER 60 mg Tablet PO (10:18)
[2021-09-14] MEDS: amlodipine 10 mg Tablet PO (10:18)
[2021-09-14] MEDS: TRAMadol 50 mg Tablet PO (10:18)
[2021-09-14] MEDS: baclofen 10 mg Tablet 5 MG PO ×3 (10:19→20:46)
[2021-09-14] MEDS: enoxaparin 40 mg/0.4 mL Syringe SUBCUT (10:20)
--- NOTE | 2021-09-14 11:36 | XRR_ITS ---
PROCEDURE INFORMATION: Exam: XR Chest Exam date and time: 09/14/2021 11:45 AM Age: 81 years old Clinical indication: Cardiovascular condition or disease; Congestive heart failure (chf); Cause unknown; Type unknown TECHNIQUE: Imaging protocol: Radiologic exam of the chest. Views: 1 view. COMPARISON: CR (CHEST, ) 09/11/2021 8:12 AM FINDINGS: Lungs: There are hazy bibasilar opacities. COPD morphology of the chest. Pleural spaces: Bilateral pleural effusions. Heart/Mediastinum: Unremarkable. No cardiomegaly. Vasculature: There is calcified plaque in the aortic arch. Bones/joints: Unremarkable. XR/XR chest 1V portable [id number] IMPRESSION: 1. There are bilateral pleural effusions. 2. COPD morphology of the chest. 3. Hazy bibasilar opacities are nonspecific and can be seen with pulmonary edema and/or pneumonia.
--- NOTE | 2021-09-14 11:42 | P.PN_ITS ---
Subjective Subjective: Total she is feeling better after diuretics Repeat x-ray today I have decreased her oxygen level to 4 L today she is saturating 93 to 94% Plan to discharge her tomorrow to [facility] She does have bilateral pleural effusion No signs of PE or DVT Sinus tachycardia related to dehydration Hypokalemia: Repleted continue full liquid diet No active emesis Vitals/I&O/Wt Last Vital Signs Temp 97.8 F 09/14/21 07:53 Pulse 103 H 09/14/21 09:04 Resp 18 09/14/21 09:00 BP 124/88 09/14/21 07:53 Pulse Ox 97 09/14/21 09:00 09/13/21 09/14/21 09/14/21 22:59 06:59 14:59 Intake Total 480 / 1380 410 / 1790 360 / 360 Output Total 2500 / 3900 1200 / 1200 Balance 480 / -20 -2090 / -2110 -840 / -840 Physical Exam Narrative: Clinical signs of dehydration Patient is endorsing feeling better Patient was Calmly in her bed Currently on 4 L nasal cannula Saturating 94% No active chest pain No shortness of breath Abdomen is soft, blocks bowel sounds are sluggish She is constipated No new focal deficit Right foot covered with dressing, no active bleeding Swelling or redness of right ankle is improving Urinary Catheter Management: Clay: Cath Placed During This Visit: yes Reason for Continuing Indwelling Catheter: Acute Urinary Retention or Obstruction Urinary Catheter Date of Insertion: 09/13/21 Urinary Catheter Time of Insertion: 12:10 Data : 09/14/21 04:38 09/14/21 04:38 A&P Assessment and plan (1) CHF exacerbation: Status: Acute (2) Esophageal spasm: Status: Acute (3) Osteomyelitis of ankle or foot, right, acute: Status: Acute (4) Dehydration: Status: Acute (5) PAD (peripheral artery disease): Status: Acute (6) Hypoxia: Status: Acute Plan Right foot osteomyelitis status post amputation Sinus tachycardia rule out DVT and PE This could be related to dehydration She is tolerating liquid diet For esophageal spasm started on Imdur and amlodipine Currently on DVT prophylaxis Lovenox Acute hypoxia related to CHF exacerbation bilateral pleural effusion I have placed Clay catheter started giving her diuretics yesterday I will give her 20 mg of IV Lasix today, today her oxygen requirement is 4 L of nasal cannula Repeat chest x-ray Possible transfer to [facility] tomorrow if oxygen requirement is not above 5 L Attestations Medical Necessity Statement*: Discharge tomorrow Time Spent in Patient Care: 30 Coding Level of Care Code Acute Rubber Goods Assembler for Chg Fwd Diagnoses CHF exacerbation I50.9 Esophageal spasm K22.4 Osteomyelitis of ankle or foot, right, acute M86.171 Dehydration E86.0 PAD (peripheral artery disease) I73.9 Hypoxia R09.02
[2021-09-14] MEDS: potassium chloride oral liq 20 mEq/15 mL UDC 40 MEQ PO (13:50)
[2021-09-14] MEDS: FUROsemide 10 mg/mL SDV 2mL 20 MG IVP (13:51)
[2021-09-14] MEDS: duloxetine 30 mg Capsule PO (20:46)
[2021-09-14] MEDS: pantoprazole DR 40 mg Tablet PO (20:46)
--- NOTE | 2021-09-14 21:52 | PC.NURSE ---
DRSG CHANGE. PT REFUSING DAILY DRSG CHANGE. NURSE EXPLAINED IMPORTANCE AND PT STILL DENIED IT TO BE CHANGED.
[2021-09-15] VITALS (18 sets, daily range): BP systolic 104–129; BP diastolic 48–62; PULSE 91–116; RESP 12–18; TEMP 36.6–36.8; O2SAT 89–94
[2021-09-15] MEDS: ipratropium-albuterol 3 mL Neb INHALATION ×6 (03:47→23:25)
[2021-09-15] MEDS: levoFLOXacin 750 mg Tablet PO (05:45)
[2021-09-15] MEDS: TRAMadol 50 mg Tablet PO ×3 (05:45→20:24)
[2021-09-15] MEDS: levothyroxine 50 mcg Tablet PO (05:45)
[2021-09-15 07:35] LABS: Anion Gap 15.7 (5-19); Blood Urea Nitrogen 11 mg/dL (8-23); Calcium 8.2 mg/dL (8.5-10.5); Carbon Dioxide 24 mmol/L (22-29); Chloride 96 mmol/L (98-107); Glucose 106 mg/dL (65-115); Osmolality Calculated 274 mOsm/kg (285-295); Potassium 3.7 mmol/L (3.5-5.1); Sodium 132 mmol/L (136-145)
--- NOTE | 2021-09-15 08:19 | ECG_ITS ---
[facility] Test Date: 2021-09-15 Pat Name: Gina Bennett Department: Room: 252 Gender: Female Top Executive: : 1940 Requested By: Hermilo Lee Order Number: [id number] Saida MD: Alejandrina Francois M.D. Measurements Intervals [place] Rate: 108 P: 51 TX: 119 QRS: 76 QRSD: 79 T: 78 QT: 327 QTc: 439 Interpretive Statements SINUS TACHYCARDIA WITH SHORT TX INTERVAL SEPTAL MYOCARDIAL INFARCTION , OF INDETERMINATE AGE [40+ ms Q WAVE IN V1/V2] Compared to ECG 09/12/2021 13:59:45 Myocardial infarct finding now present Electronically Signed On 09-16-2021 5:44:53 CDT by Alejandrina Francois M.D. [email or web address]
[2021-09-15] MEDS: metoprolol tartrate 25 mg Tablet 12.5 MG PO (08:55)
[2021-09-15] MEDS: amlodipine 10 mg Tablet PO (08:55)
[2021-09-15] MEDS: sennosides-docusate Tablet 1 TAB PO ×2 (08:55→17:29)
[2021-09-15] MEDS: baclofen 10 mg Tablet 5 MG PO ×3 (08:56→20:18)
[2021-09-15] MEDS: doxycycline 100 mg Tablet PO ×2 (08:56→17:29)
[2021-09-15] MEDS: atorvastatin 40 mg Tablet PO (08:56)
[2021-09-15] MEDS: isosorbide mononitrate ER 60 mg Tablet PO (08:57)
[2021-09-15] MEDS: enoxaparin 40 mg/0.4 mL Syringe SUBCUT (09:00)
--- NOTE | 2021-09-15 09:07 | PC.NURSE ---
Patient refused Colace. States she is not taking it any more.
--- NOTE | 2021-09-15 11:05 | P.PN_ITS ---
Subjective Subjective: Patient stating that her pain is 5 today She still complaining of back pain, hip pain and pain at surgical site Sinus Slim repeat EKG is not showing atrial flutter or A. fib Low-dose metoprolol added, clinically looks dehydrated concentrated urine in the Clay catheter in the bag BMP showing hypokalemia Oxygen level is 4 L she is saturating 92% Plan to discharge her tomorrow to [facility] if possible She is constipated Stating because of fibromyalgia she gets rectal sphincter spasms, will do enema today Vitals/I&O/Wt Last Vital Signs Temp 97.8 F 09/15/21 08:00 Pulse 107 H 09/15/21 08:00 Resp 18 09/15/21 08:00 BP 116/62 09/15/21 08:00 Pulse Ox 92 09/15/21 08:00 09/14/21 09/15/21 09/15/21 22:59 06:59 14:59 Intake Total 600 / 960 240 / 240 Output Total 360 / 1560 Balance 600 / -240 -360 / -600 240 / 240 Physical Exam Narrative: No new focal deficit Surgical site unremarkable Looks dehydrated Concentrated urine Saturating well on 4 L nasal cannula No active chest pain Bowel sounds present but sluggish No abdominal tenderness Urinary Catheter Management: Clay: Cath Placed During This Visit: yes Reason for Continuing Indwelling Catheter: Acute Urinary Retention or Obstruction Urinary Catheter Date of Insertion: 09/13/21 Urinary Catheter Time of Insertion: 12:10 Data : 09/14/21 04:38 09/15/21 06:21 A&P Assessment and plan (1) Hypoxia: Status: Acute (2) CHF exacerbation: Status: Acute (3) Esophageal spasm: Status: Acute (4) Osteomyelitis of ankle or foot, right, acute: Status: Acute (5) Dehydration: Status: Acute (6) PAD (peripheral artery disease): Status: Acute (7) Leukocytosis: Status: Acute Plan Constipation: We will try enema today For pain management tramadol and morphine every 4 hours as needed She will need outpatient Dr. Chen follow-up Hypoxia related to bilateral pleural effusion no signs of pneumonia, currently on 4 L nasal cannula, plan to discharge her to [place] on Sunday No signs of DVT or PE Deconditioned, extremity contractures Currently on doxycycline and Levaquin She is consistently in sinus tachycardia secondary to dehydration and pain no signs of PE Add low-dose metoprolol, DVT prophylaxis on board DNR/DNI Hypokalemia: Repleted Attestations Medical Necessity Statement*: Discharge tomorrow if possible Time Spent in Patient Care: 30 Coding Level of Care Code Acute Investigator Vice for Chg Fwd Diagnoses Hypoxia R09.02 CHF exacerbation I50.9 Esophageal spasm K22.4 Osteomyelitis of ankle or foot, right, acute M86.171 Dehydration E86.0 PAD (peripheral artery disease) I73.9 Leukocytosis D72.829
--- NOTE | 2021-09-15 11:08 | XR_ITS ---
WS: [id number] KUB, AP view, 09/15/2021 Clinical Data: Constipation Comparison: KUB, 08/02/2012. Findings: No abnormal intraabdominal masses are seen. There is no dilatated small bowel or evidence of obstruct ion. There is a large amount of fecal material throughout the colon. There are vascular calcifications. Th ere is osteoarthritic change of the right hip with repair of a subcapital fracture. There is a dextro scoliosis of the lumbar spine. XR/XR KUB portable [id number] Impression: Large amount of feces in the colon.
[2021-09-15] MEDS: potassium chloride oral liq 20 mEq/15 mL UDC 40 MEQ PO (11:38)
[2021-09-15] MEDS: Fleet Enema 133 mL Enema PR (11:38)
[2021-09-15] MEDS: sodium chloride 0.9% 1,000 ML 100 ML IV ×2 (11:38→20:29)
--- NOTE | 2021-09-15 11:47 | PC.SOCIAL ---
IMM Updated Updated pt on IMM. No questions voiced. Provided pt a copy. Initialed, dated, & timed copy in chart.
[2021-09-15] MEDS: lanolin oint 7 gm 1 APPLIC TOPICAL (12:44)
[2021-09-15] MEDS: docusate sodium 100 mg Capsule PO (17:30)
--- NOTE | 2021-09-15 17:55 | PC.NURSE ---
Dr. Lee wanted CT to be cancelled on pt. Did not need on this patient
[2021-09-15] MEDS: pantoprazole DR 40 mg Tablet PO (20:18)
[2021-09-15] MEDS: duloxetine 30 mg Capsule PO (20:18)
[2021-09-16] VITALS (9 sets, daily range): BP systolic 102–115; BP diastolic 53–55; PULSE 91–99; RESP 12–18; TEMP 36.8; O2SAT 90–94
[2021-09-16] MEDS: acetaminophen 325 mg Tablet 650 MG PO (00:55)
[2021-09-16] MEDS: diphenhydrAMINE 25 mg Capsule PO (00:55)
[2021-09-16] MEDS: ipratropium-albuterol 3 mL Neb INHALATION ×3 (03:20→13:05)
[2021-09-16] MEDS: levothyroxine 50 mcg Tablet PO (04:41)
[2021-09-16] MEDS: levoFLOXacin 750 mg Tablet PO (04:41)
[2021-09-16 05:22] LABS: Basophils % 0.4 %; Eosinophils # 0.2 10^3/uL (0.0-0.8); Eosinophils % 1.9 %; Hematocrit 31.6 % (37.0-47.0); Hemoglobin 10.5 g/dL (11.5-15.3); Lymphocytes # 0.7 10^3/uL (0.8-4.8); Lymphocytes % 6.5 %; Mean Corpuscular HGB Conc 33.2 g/dL (30.0-36.0); Mean Corpuscular Hemoglobin 30.1 pg (28.0-34.0); Mean Corpuscular Volume 90.5 fl (81-99); Mean Platelet Volume 10.8 fL (7.4-10.4); Monocytes # 0.9 10^3/uL (0.2-0.9); Monocytes % 7.8 %; Neutrophils % 82.9 %; Nucleated Red Blood Cells % 0 %; Platelet Count 280 10^3/cmm (130-400); Red Blood Count 3.49 10^6/uL (4.1-5.3); Red Cell Distribution Width 15.4 % (12.1-15.1); White Blood Count 10.9 10^3/uL (4.0-10.0)
[2021-09-16] MEDS: sodium chloride 0.9% 1,000 ML 100 ML IV (05:38)
[2021-09-16 05:44] LABS: Blood Urea Nitrogen 10 mg/dL (8-23); Calcium 7.8 mg/dL (8.5-10.5); Carbon Dioxide 22 mmol/L (22-29); Chloride 104 mmol/L (98-107); Glucose 80 mg/dL (65-115); Osmolality Calculated 280 mOsm/kg (285-295); Sodium 136 mmol/L (136-145)
[2021-09-16] MEDS: baclofen 10 mg Tablet 5 MG PO (09:10)
[2021-09-16] MEDS: sennosides-docusate Tablet 1 TAB PO (09:11)
[2021-09-16] MEDS: docusate sodium 100 mg Capsule PO (09:11)
[2021-09-16] MEDS: doxycycline 100 mg Tablet PO (09:11)
[2021-09-16] MEDS: enoxaparin 40 mg/0.4 mL Syringe SUBCUT (10:01)
[2021-09-16] MEDS: TRAMadol 50 mg Tablet PO (10:01)
--- NOTE | 2021-09-16 10:03 | P.DS_ITS ---
Discharge Providers Date of Admission: 09/06/21 07:44 Date of Discharge: September 16, 2021 Attending Provider at Admission: Yaw Prajapati MD Attending Provider at Discharge: Hermilo Lee MD Primary Care Provider: Khloe Arthur DO Diagnoses at Discharge Discharge Diagnosis (1) Hypoxia: Status: Acute (2) CHF exacerbation: Status: Acute (3) Esophageal spasm: Status: Acute (4) Osteomyelitis of ankle or foot, right, acute: Status: Acute (5) Dehydration: Status: Acute (6) PAD (peripheral artery disease): Status: Acute (7) Leukocytosis: Status: Acute Reason for Visit Reason for Visit: n/v Hospital Course Hospital Course 89-year-old female presented to the hospital for worsening of her leg pain, vascular study did show severe peripheral vascular disease of right leg, she was diagnosed with osteomyelitis of right foot, Incision and drainage right lateral foot wound with excision of distal one third of right fifth metatarsal and right fifth toe 09/08. Her leukocytosis improved, she remained afebrile, no growth on blood cultures, cultures from the OR showed Pseudomonas which is sensitive to Levaquin throughout her hospitalization she remained on doxycycline and Levaquin. Of note her hospitalization got complicated due to acute onset of hypoxia which was secondary to hypoventilation, no signs of pneumonia or aspiration however she has bilateral pleural effusion. She remained tachycardic related to her dehydration and pain. No signs of atrial flutter or fibrillation. No signs of PE or DVT. Echo showed preserved ejection fraction I diuresed her for 2 days, I was able to bring her oxygen requirement down from 5- 6 Down to 3 L at the time of discharge. She has history of esophageal spasm, she only tolerates liquid diet, she is not willing to go for another endoscopy at this point. I did add Imdur and amlodipine however that did not make a big difference in her symptoms. She will be discharged to [facility]. She will follow-up outpatient with Dr. Chen for her peripheral vascular disease, as per Dr. Chen because of her right extremity contractures it is very difficult to do any kind of intervention at this point and she is at high risk for amputation. Physical Exam Narrative: Stage I sacral ulcer, right buttocks ulcer present since admission No new focal deficit Surgical site unremarkable Looks dehydrated Concentrated urine Saturating well on 4 L nasal cannula No active chest pain Bowel sounds present but sluggish No abdominal tenderness Urinary Catheter Management: Clay: Cath Placed During This Visit: yes Reason for Continuing Indwelling Catheter: Required Immobilization for Trauma or Surgery or Anesthesia Urinary Catheter Date of Insertion: 09/13/21 Urinary Catheter Time of Insertion: 12:10 Discharge Data Studies Completed and Pending Completed Studies During Hospitalization Category Date Time Status CT chest abd pel w con* Stat Cat Scan 09/05/21 23:21 Completed CTA PE [CT angio chest PE protcl 69566] Routine Cat Scan 09/12/21 13:28 Completed XR KUB portable [id number] Routine Exams 09/15/21 11:08 Completed XR chest 1V portable [id number] Routine Exams 09/11/21 08:03 Completed XR chest 1V portable [id number] Routine Exams 09/14/21 11:36 Completed XR foot RT 2V [id number] Routine Exams 09/11/21 10:43 Completed XR foot RT min 3V* [id number] Stat Exams 09/06/21 02:05 Completed MR foot RT wo con* [id number] Urgent MRI 09/07/21 10:00 [place] [id number] Routine Ultrasound 09/13/21 08:08 Completed CV. echo complete* [id number] Routine Ultrasound 09/13/21 10:42 Completed US abdomen limited [id number] Stat Ultrasound 09/06/21 01:31 Completed Radiology Impressions Chest/Abdomen/Pelvis CT 09/05/21 23:21 IMPRESSION: 1. Severe centrilobular emphysema. 2. Severe calcified coronary artery disease. 3. Chronic appearing 20% T10 compression fracture involving the superior vertebral body endplate. IMPRESSION: Multiple gallstones within the gallbladder. COMMENTS: Consistent with the [employer]'s Incidental Findings Committee white paper (J Am Franklyn Radiol 2018): Any incidental renal lesion less than 1 cm or classified as too small to characterize, or any incidental cystic renal lesion characterized as simple-appearing, is likely benign. No follow-up imaging is recommended for these lesions per consensus recommendations based on imaging criteria. ADDENDUM: 09/06/21 0114 History: 33,000 white blood cell count with neutrophils. Abdominal impression: 2. 7.5 cm simple cyst arising from the left kidney between the kidney and spleen. This measures 9 Hounsfield units consistent with simple cyst. THIS REPORT CONTAINS FINDINGS THAT MAY BE CRITICAL TO PATIENT CARE. The findings were verbally communicated via telephone conference with Honorio Eaton at 1:12 AM CDT on 09/06/2021. The findings were acknowledged and understood. Abdomen Ultrasound 09/06/21 01:31 IMPRESSION: 1. Cholelithiasis without evidence for acute cholecystitis. 2. Bilateral renal simple appearing cysts, larger on the left. Findings were discussed with [facility] Kj Mcmanus at 09/06/2021 4:49 AM CDT. Foot MRI 09/07/21 10:00 IMPRESSION: 1. Osteomyelitis involving the head of the 5th metatarsal extending across the joint into the base of the 5th proximal phalanx as described above. Osteomyelitis extends into the mid shaft of the 5th metatarsal. Foot X-Ray 09/11/21 10:43 IMPRESSION: 1. There is some contour irregularity of the 5th metatarsal at the amputation site and osteomyelitis cannot be excluded. 2. Generalized osteopenia. 3. There is edema and thickening of the soft tissues surrounding the foot most prominent adjacent to the amputation site. Chest CTA 09/12/21 13:28 IMPRESSION: 1. No pulmonary embolism. 2. New small bilateral pleural effusions with bibasilar atelectasis at the lung bases. 3. Severe emphysema. 4. Pulmonary hypertension. 5. Small indeterminate bilateral hilar lymph nodes. Probably reactive. Chest X-Ray 09/14/21 11:36 IMPRESSION: 1. There are bilateral pleural effusions. 2. COPD morphology of the chest. 3. Hazy bibasilar opacities are nonspecific and can be seen with pulmonary edema and/or pneumonia. KUB X-Ray 09/15/21 11:08 Impression: Large amount of feces in the colon. Laboratory Results WBC 10.9 10^3/uL (4.0-10.0) H 09/16/21 04:34 RBC 3.49 10^6/uL (4.1-5.3) L 09/16/21 04:34 Hgb 10.5 g/dL (11.5-15.3) L 09/16/21 04:34 Hct 31.6 % (37.0-47.0) L 09/16/21 04:34 MCV 90.5 fl (81-99) 09/16/21 04:34 MCH 30.1 pg (28.0-34.0) 09/16/21 04:34 MCHC 33.2 g/dL (30.0-36.0) 09/16/21 04:34 RDW 15.4 % (12.1-15.1) H 09/16/21 04:34 Plt Count 280 10^3/cmm (130-400) 09/16/21 04:34 MPV 10.8 fL (7.4-10.4) H 09/16/21 04:34 Neut % (Auto) 82.9 % 09/16/21 04:34 Lymph % (Auto) 6.5 % 09/16/21 04:34 [place] % (Auto) 7.8 % 09/16/21 04:34 Eos % (Auto) 1.9 % 09/16/21 04:34 Baso % (Auto) 0.4 % 09/16/21 04:34 Neut # (Auto) 9.00 10^3/uL (1.8-7.7) H 09/16/21 04:34 Lymph # (Auto) 0.7 10^3/uL (0.8-4.8) L 09/16/21 04:34 [place] # (Auto) 0.9 10^3/uL (0.2-0.9) 09/16/21 04:34 Eos # (Auto) 0.2 10^3/uL (0.0-0.8) 09/16/21 04:34 Baso # (Auto) 0.0 10^3/uL (0.0-0.1) 09/16/21 04:34 Nucleated RBC % (auto) 0 % 09/16/21 04:34 Nucleated RBCs # 0.0 /100WBC 09/16/21 04:34 ESR 32 mm/hr (0-15) H 09/05/21 22:37 D-Dimer 1.76 ug/mIFEU (0-0.59) H 09/12/21 13:49 Sodium 136 mmol/L (136-145) 09/16/21 04:34 Potassium 4.0 mmol/L (3.5-5.1) 09/16/21 04:34 Chloride 104 mmol/L (98-107) 09/16/21 04:34 Carbon Dioxide 22 mmol/L (22-29) 09/16/21 04:34 Anion Gap 14.0 (5-19) 09/16/21 04:34 BUN 10 mg/dL (8-23) 09/16/21 04:34 Creatinine 0.6 mg/dL (0.5-0.9) 09/16/21 04:34 GFR Calculation Not Reportable 09/16/21 04:34 Glucose 80 mg/dL (65-115) 09/16/21 04:34 Calculated Osmolality 280 mOsm/kg (285-295) L 09/16/21 04:34 Lactic Acid 1.2 mmol/L (0.5-2.2) 09/05/21 23:30 Calcium 7.8 mg/dL (8.5-10.5) L 09/16/21 04:34 Phosphorus 2.2 mg/dL (2.5-4.5) L 09/07/21 04:05 Magnesium 1.9 mg/dL (1.7-2.3) 09/07/21 04:05 Total Bilirubin 0.4 mg/dL (0.15-1.2) 09/09/21 05:00 AST 13 U/L (0-32) 09/09/21 05:00 ALT 9 U/L (0-33) 09/09/21 05:00 Alkaline Phosphatase 91 IU/L (35-105) 09/09/21 05:00 Troponin T Baseline 55 ng/L (0-10) H 09/05/21 23:30 Troponin T 120 Minute 57.95 ng/L (0-10) H 09/06/21 04:17 Delta Troponin T 2.95 ABS# (0-10) 09/06/21 04:17 Troponin T Hi Sens 6Hr 60.44 ng/L (0-10) H 09/06/21 05:51 Troponin T Hi Sens 6Hr Delta 5.44 ng/L (0-12) 09/06/21 05:51 C-Reactive Protein 56.9 mg/L (0.0-4.9) H 09/05/21 23:30 NT-Pro-B Natriuret Pep 4023 pg/mL (0-450) H 09/13/21 04:43 Total Protein 4.8 g/dL (6.6-8.7) L 09/09/21 05:00 Albumin 2.3 g/dL (3.5-5.2) L 09/09/21 05:00 Globulin 2.5 g/dL (1.3-4.6) 09/09/21 05:00 Lipase 7 U/L (13-60) L 09/05/21 23:30 Procalcitonin 1.28 ng/mL (0-0.5) H 09/07/21 04:05 Urine Color Yellow (Yellow) 09/06/21 02:00 Urine Appearance Sl hazy (CLEAR) 09/06/21 02:00 Urine pH 6 (5-7) 09/06/21 02:00 Ur Specific [place] 1.010 (1.005-1.030) 09/06/21 02:00 Urine Protein Neg (Negative) 09/06/21 02:00 Urine Glucose (UA) Norm (Normal) 09/06/21 02:00 Urine Ketones 1+ (Negative) H 09/06/21 02:00 Urine Blood Trace (Negative) H 09/06/21 02:00 Urine Nitrate Negative (Negative) 09/06/21 02:00 Urine Bilirubin Neg (Negative) 09/06/21 02:00 Urine Urobilinogen Norm mg/dL (Negative) 09/06/21 02:00 Ur Leukocyte Esterase 2+ (Negative) H 09/06/21 02:00 Urine RBC 0-4 /hpf (0-2) H 09/06/21 02:00 Urine WBC 25-40 /hpf (0-5) H 09/06/21 02:00 Ur Squamous Epith Cells 5-10 /hpf (0-5) H 09/06/21 02:00 Amorphous Sediment Not Reportable 09/06/21 02:00 Urine Bacteria 1+ /hpf (NONE) H 09/06/21 02:00 Urine Mucus Trace /hpf 09/06/21 02:00 Lymphoma Panel See report 09/05/21 22:40 Immunophenotype Interp See report 09/05/21 22:40 SARS-CoV-2 Ag (Rapid) Negative (Negative) 09/12/21 Unknown Vitals Last Vital Signs Temp 98.3 F 09/16/21 07:28 Pulse 94 09/16/21 07:49 Resp 18 09/16/21 07:42 BP 106/53 09/16/21 07:28 Pulse Ox 94 09/16/21 07:42 Discharge Plan Discharge Patient Disposition: Xfer SNF Condition: Stable Prescriptions: New Stool Softener-Laxative 8.6-50 mg Tablet 1 tab PO BID Qty: 20 0RF tramadol 50 mg Tablet 50 mg PO Q4H PRN (Reason: Moderate Pain) Qty: 20 0RF amlodipine 10 mg Tablet 5 mg PO DAILY Qty: 30 0RF levofloxacin 750 mg Tablet 750 mg PO DAILY@0600 Qty: 5 0RF Continued hydrocodone-acetaminophen 5-325 mg tablet 0.5 - 1 tab PO BID PRN (Reason: Pain) 0RF tramadol 50 mg tablet 50 mg PO BID PRN (Reason: Pain) 0RF amitriptyline 50 mg tablet 100 mg PO BEDTIME 90 Days Qty: 180 1RF baclofen 5 mg tablet 5 mg PO TID Qty: 270 2RF Plavix 75 mg tablet 75 mg PO QAM 90 Days Qty: 90 2RF Prolia 60 mg/mL syringe 60 mg SUBCUT .COMPLEX Qty: 1 0RF Rx Instructions: 60 mg SUBCUT every six months; duloxetine [Cymbalta] 30 mg capsule,delayed release(DR/EC) 30 mg PO BEDTIME 90 Days Qty: 90 2RF Reglan 5 mg tablet 5 mg PO BID PRN (Reason: nausea and vomiting) 90 Days Qty: 180 1RF oxybutynin chloride 5 mg tablet 5 mg PO QAM 90 Days Qty: 90 2RF Protonix 40 mg tablet,delayed release (DR/EC) 40 mg PO BID 90 Days Qty: 180 3RF pentoxifylline 400 mg tablet extended release 400 mg PO TID Qty: 90 4RF Rx Instructions: must administer with a meal/food levothyroxine 50 mcg tablet 50 mcg PO QAM 90 Days Qty: 90 1RF atorvastatin 40 mg tablet 40 mg PO BEDTIME 0RF PreserVision AREDS-2 250-90-40-1 mg Capsule 1 tab PO BID 0RF Tylenol 325 mg tablet 325 - 650 mg PO Q6H PRN (Reason: Pain) 0RF nystatin 100,000 unit/gram cream 1 applic topical BID PRN (Reason: groin ) 0RF cholecalciferol (vitamin D3) 1,250 mcg (50,000 unit) capsule 1,250 mcg PO Q7D 0RF Rx Instructions: on sun Discharge Orders: Discharge Order (Routine); Ordered 09/16/21 Ordered By: Hermilo Lee Referrals: [facility] [Outside] Khloe Arthur DO [Primary Care Provider] - Óscar Chen MD [Physician] - 2 weeks Discharge Diet: Full LIquid Discharge Activity: Wheelchair as instructed Activity Restrictions/Additional Instructions: saline wet to dry dressing change daily to R foot Discharge Attestations Time Spent in Discharge Care*: less than 30 min Quality Metrics Clinical Quality Measures [ No reported AMI, CVA or VTE this stay] Coding Level of Care Code Acute Chg FW DC note Diagnoses Hypoxia R09.02 CHF exacerbation I50.9 Esophageal spasm K22.4 Osteomyelitis of ankle or foot, right, acute M86.171 Dehydration E86.0 PAD (peripheral artery disease) I73.9 Leukocytosis D72.829
--- NOTE | 2021-09-16 11:47 | PC.NURSE ---
Notified Dr. Lee of patient refuses to allow hogan to be removed at this time. Has a pressure wound on bottom and does not want to be wet with sore. Patient states she cannot feel when she has to void.
--- NOTE | 2021-09-16 12:55 | PC.NURSE ---
Report called to Aleta Lobo LPN at [facility] at 1255. All questions answered and verbalized understanding.
== END 2021-09-16 14:03 | disposition skilled nursing facility (03) | DRG 503 ==
LOC: ER 09-06 11:54 → MEDSURG 09-06 13:31
PROVIDERS: Emergency Medicine; Thoracic Surgery (Cardiothoracic Vascular Surgery); Admitting Provider Internal Medicine; Emergency Provider Emergency Medicine; PCP Family Medicine; Visit Provider Internal Medicine
PROC: 0Y6X0Z1 Detachment at Right 5th Toe, High, Open Approach (ICD-10-PCS; principal; 2021-09-08 07:00)
DX: M86.171 Other acute osteomyelitis, right ankle and foot (principal); I50.31 Acute diastolic (congestive) heart failure; E46 Unspecified protein-calorie malnutrition; Z68.1 Body mass index [BMI] 19.9 or less, adult; N39.0 Urinary tract infection, site not specified; R65.10 Systemic inflammatory response syndrome (SIRS) of non-infectious origin without acute organ dysfunction; K21.9 Gastro-esophageal reflux disease without esophagitis; M24.551 Contracture, right hip; I71.4 Abdominal aortic aneurysm, without rupture; K59.09 Other constipation; Z86.73 Personal history of transient ischemic attack (TIA), and cerebral infarction without residual deficits; M79.7 Fibromyalgia; E03.9 Hypothyroidism, unspecified; M81.0 Age-related osteoporosis without current pathological fracture; M19.90 Unspecified osteoarthritis, unspecified site; E86.0 Dehydration; J43.2 Centrilobular emphysema; I25.10 Atherosclerotic heart disease of native coronary artery without angina pectoris; K80.80 Other cholelithiasis without obstruction; G62.9 Polyneuropathy, unspecified; R06.89 Other abnormalities of breathing; B96.5 Pseudomonas (aeruginosa) (mallei) (pseudomallei) as the cause of diseases classified elsewhere; E87.6 Hypokalemia; L89.311 Pressure ulcer of right buttock, stage 1; Z66 Do not resuscitate; K22.4 Dyskinesia of esophagus; K31.84 Gastroparesis; I73.9 Peripheral vascular disease, unspecified; N39.46 Mixed incontinence; Z79.891 Long term (current) use of opiate analgesic
CPT/HCPCS: 36415; 51702; 71045; 71260; 71275; 73620; 73630; 73718; 74018; 74177; 76705; 80048; 80053; 80503; 81001; 83605; 83690; 83735; 83880; 84100; 84145; 84484; 85014; 85018; 85025; 85378; 85651; 86140; 87040; 87070; 87075; 87077; 87086; 87186; 87205; 87426; 88184; 88185; 93005; 93306; 93926; 93971; 94640; 94762; 96365; 96367; 96372; 96375; 96376; 99285; C9113; J0690; J1650; J1940; J1956; J2001; J2270; J2370; J2405; J2543; J2704; J2765; J3010; J3370; J7030; Q9967

== ENCOUNTER → 2021-10-05 13:27 | Outpatient (BNVA) | payer MEDICARE, OTHER, SELFPAY | PROVIDERS: PCP Family Medicine; Visit Provider Thoracic Surgery (Cardiothoracic Vascular Surgery) | DX: I96 Gangrene, not elsewhere classified (principal); L97.522 Non-pressure chronic ulcer of other part of left foot with fat layer exposed; L89.312 Pressure ulcer of right buttock, stage 2; L89.153 Pressure ulcer of sacral region, stage 3 | CPT/HCPCS: 11042; 11044 ==

== ENCOUNTER 2021-10-07 20:54 | Inpatient (IN) | payer MEDICARE, OTHER, SELFPAY ==
[2021-10-07 21:13] VITALS: BP 98/40; PULSE 108; RESP 17; TEMP 36.9; O2SAT 93
--- NOTE | 2021-10-07 21:16 | CTR_ITS ---
PROCEDURE INFORMATION: Exam: CT Abdomen And Pelvis With Contrast Exam date and time: 10/07/2021 10:07 PM Age: 81 years old Clinical indication: Abdominal pain; Patient HX: PT has contracted right leg. Unable to lie on her back because leg won't fit thru the gantry, also large decubitis ulcer on her buttocks, draining TECHNIQUE: Imaging protocol: Computed tomography of the abdomen and pelvis with contrast. Radiation optimization: All CT scans at this facility use at least one of these dose optimization techniques: automated exposure control; mA and/or kV adjustment per patient size (includes targeted exams where dose is matched to clinical indication); or iterative reconstruction. Contrast material: OMNI 350; Contrast volume: 84 ml; Contrast route: INTRAVENOUS (IV); COMPARISON: CT chest abd pel w con* 09/06/2021 12:22 AM RADIATION DOSE METRICS: Total DLP (mGy-cm): 873.53 FINDINGS: Lungs: There are findings of centrilobular emphysema at the lung bases. There is some partial atelectasis at the left lung base. Pleural spaces: There is moderate left pleural effusion. Liver: There is a diffuse decrease in hepatic parenchymal density, consistent with mild fatty infiltration. There is no focal abnormality within the liver. Gallbladder and bile ducts: There is mild dilatation gallbladder which measures approximately 7 cm in length and 3 cm in diameter. There are multiple gallstones in the gallbladder. There is moderate dilatation of the common bile duct which measures 10 cm, slightly larger than on the previous examination. Pancreas: The pancreas is normal. Spleen: The spleen is normal. Adrenal glands: The adrenal glands are normal. Kidneys and ureters: 2 cm simple cyst mid right kidney. Large 7 cm sized cyst arising from the lateral aspect of the left kidney again identified not significantly changed. There is no evidence of hydronephrosis. There is no evidence of renal or ureteral calcifications. Stomach and bowel: There is large amount of feces within the colon which may represent constipation. There is no evidence of intestinal obstruction. Appendix: Not Identified Intraperitoneal space: There is no evidence of free intraperitoneal fluid. Vasculature: The aorta demonstrates moderate atherosclerotic calcification. The aorta demonstrates severe atherosclerotic calcification and ectasia. There is no evidence of an abdominal aortic aneurysm. Lymph nodes: There is no evidence of lymphadenopathy. Urinary bladder: There is a Clay catheter within the urinary bladder. There is some air within the urinary bladder likely related to the catheterization. Reproductive: Unremarkable as visualized. Bones/joints: There is old healed fracture right femoral neck. There are degenerative changes in the right hip. There is mild chronic compression deformity of L2 not significantly changed. Soft tissues: There is a large sacral decubitus ulcer new compared with 09/06/2021. Decubitus ulcers mainly the left of midline. The ulcer extends to the distal sacrum and coccyx. The appearance of the distal sacrum and coccyx is not changed from 09/06/2021 without destructive lesion to suggest active osteomyelitis, however the gas within the ulcer cavity is in contact with the bone. CT/CT abdomen pelvis w con* [id number] IMPRESSION: 1. Large sacral decubitus ulcer extending to the sacral tip and coccyx. 2. Left pleural effusion 3. Partial left lower lobe atelectasis 4. Cholelithiasis 5. Other intra-abdominal findings not significantly changed from 09/06/2021 COMMENTS: Consistent with the [place] [employer]'s Incidental Findings Committee white paper (J Am Franklyn Radiol 2018): Any incidental renal lesion less than 1 cm or classified as too small to characterize, or any incidental cystic renal lesion characterized as simple-appearing, is likely benign. No follow-up imaging is recommended for these lesions per consensus recommendations based on imaging criteria.
[2021-10-07 21:22] LABS: Basophils % 0.3 %; Eosinophils # 0.3 10^3/uL (0.0-0.8); Eosinophils % 3.1 %; Hematocrit 27.2 % (37.0-47.0); Hemoglobin 9.1 g/dL (11.5-15.3); Lymphocytes # 0.9 10^3/uL (0.8-4.8); Lymphocytes % 8.9 %; Mean Corpuscular HGB Conc 33.5 g/dL (30.0-36.0); Mean Corpuscular Hemoglobin 29.4 pg (28.0-34.0); Mean Platelet Volume 10.4 fL (7.4-10.4); Monocytes # 0.8 10^3/uL (0.2-0.9); Monocytes % 7.7 %; Neutrophils # 7.87 10^3/uL (1.8-7.7); Neutrophils % 79.5 %; Nucleated Red Blood Cells % 0 %; Platelet Count 480 10^3/cmm (130-400); Red Blood Count 3.09 10^6/uL (4.1-5.3); Red Cell Distribution Width 15.2 % (12.1-15.1); White Blood Count 9.9 10^3/uL (4.0-10.0)
--- NOTE | 2021-10-07 21:29 | W.ED.GENADLT ---
HPI - General Adult General: Chief complaint: Wound/Laceration Stated complaint: INFECTED ULCERS Time Seen by Provider: 10/07/21 21:13 History of Present Illness: Patient is a 81-year-old female history of PAD and recent osteomyelitis of right foot status post amputation presents emergency room with concerns of worsening sacral ulcer. It is unclear clear how long patient has had this sacral ulcer. Patient was found earlier today to have pus coming out of her sacral ulcer area. Patient denies any fever or chills. intermediate called EMS and patient was brought to the emergency room. Patient previously was seen by wound care. Onset: unknown Duration:ongoing Location:jail Severity:moderate/severe Associated symptoms: Deny chest pain, dyspnea, nausea, rash, palpitations or vomiting Review of Systems Const: Denies: fever(s) or chills Eyes: Denies: change in vision ENMT: Denies: mouth pain Card: Denies: chest pain or palpitations Resp: Denies: dyspnea or non-productive cough GI: Denies: abdominal pain, nausea, vomiting or diarrhea : Reports: other (sacral ulcer drainage, foul-smell and pain); Denies: dysuria Musc: Denies: extremity pain Skin/Breast: Denies: rash or new lesions Neuro: Denies: weakness in extremities Psych: Reports: other (Normal mood) Adal/Lymph: Denies: easy bruising PFSH ED PFSH: Medical History CVA (cerebral vascular accident) Dehydration Fibromyalgia GERD (gastroesophageal reflux disease) Hypothyroidism Leukocytosis Lumbar degenerative disc disease Mixed incontinence Neuropathy Osteoarthritis Osteomyelitis of ankle or foot, right, acute Osteoporosis PAD (peripheral artery disease) Pressure ulcer of right foot, stage 2 Right foot ulcer SIRS (systemic inflammatory response syndrome) Urinary incontinence Vomiting Surgical History H/O dilation and curettage H/O esophagogastroduodenoscopy (12/16/20) H/O hand surgery H/O knee surgery H/O tubal ligation History of colonoscopy 1997 History of open reduction and internal fixation (ORIF) procedure right hip History of tonsillectomy Family History Sister Cancer PANCREATIC Other CAD (coronary artery disease) Hypertension Lung disease Social History Smoking and tobacco status: never smoked Alcohol intake: never Physical Exam Const: COMMON NORMALS: alert HENMT: COMMON NORMALS: atraumatic HEAD & SCALP: atraumatic MOUTH: moist mucous membranes not abnormal Eye: COMMON NORMALS: EOMs intact bilaterally and conjunctivae normal CONJUNCTIVA: Yes conjunctivae normal Neck/C-Spine: COMMON NORMALS: full ROM and supple Resp: COMMON NORMALS: normal respiratory effort and clear to auscultation bilaterally AUSCULTATION: clear to auscultation bilaterally Cardio: RATE: tachycardic GI: COMMON NORMALS: Soft to palpation and non-tender PALPATION: Yes Soft to palpation Extremity: COMMON NORMALS: full ROM Neuro: SENSORIUM/ORIENTATION: Yes alert MOTOR EXAM: No Abnormal motor strength present and Other motor observations present (no focal motor deficits) OTHER: + Baseline confusion dementia, unable to follow commands Psych: COMMON NORMALS: speech normal SPEECH: Yes normal speech MOOD & AFFECT: Yes euthymic mood Skin: NARRATIVE SKIN EXAM: + Stage III/4 sacral ulcer with significant pus drainage Course Vital Signs: Vital signs: Vital Signs Temperature 98.5 F 10/07/21 21:13 Pulse Rate 108 H 10/07/21 21:13 Respiratory Rate 17 10/07/21 21:13 Blood Pressure 98/40 10/07/21 21:13 Pulse Oximetry 93 10/07/21 21:13 [facility] - General Adult Medical Decision Making 81-year-old female with history of PAD recent toe amputation presenting to the emergency room with concerns of possible infected ulcer. On physical exam, patient has significant drainage and pus from the sacral ulcer site. Patient is afebrile noted to be mildly tachycardic to the low 100s. Hemoglobin 9.1. White count of 9.9. CT pelvis showed sacral infection. Blood culture sent. Patient received vancomycin and Zosyn. Dr. Craven is aware of the case will follow. Disposition: admission Lab Data : 10/07/21 20:45 10/07/21 20:45 Laboratory Results WBC 9.9 10^3/uL (4.0-10.0) 10/07/21 20:45 RBC 3.09 10^6/uL (4.1-5.3) L 10/07/21 20:45 Hgb 9.1 g/dL (11.5-15.3) L 10/07/21 20:45 Hct 27.2 % (37.0-47.0) L 10/07/21 20:45 MCV 88.0 fl (81-99) 10/07/21 20:45 MCH 29.4 pg (28.0-34.0) 10/07/21 20:45 MCHC 33.5 g/dL (30.0-36.0) 10/07/21 20:45 RDW 15.2 % (12.1-15.1) H 10/07/21 20:45 Plt Count 480 10^3/cmm (130-400) H 10/07/21 20:45 MPV 10.4 fL (7.4-10.4) 10/07/21 20:45 Neut % (Auto) 79.5 % 10/07/21 20:45 Lymph % (Auto) 8.9 % 10/07/21 20:45 [place] % (Auto) 7.7 % 10/07/21 20:45 Eos % (Auto) 3.1 % 10/07/21 20:45 Baso % (Auto) 0.3 % 10/07/21 20:45 Neut # (Auto) 7.87 10^3/uL (1.8-7.7) H 10/07/21 20:45 Lymph # (Auto) 0.9 10^3/uL (0.8-4.8) 10/07/21 20:45 [place] # (Auto) 0.8 10^3/uL (0.2-0.9) 10/07/21 20:45 Eos # (Auto) 0.3 10^3/uL (0.0-0.8) 10/07/21 20:45 Baso # (Auto) 0.0 10^3/uL (0.0-0.1) 10/07/21 20:45 Nucleated RBC % (auto) 0 % 10/07/21 20:45 Nucleated RBCs # 0.0 /100WBC 10/07/21 20:45 ESR 29 mm/hr (0-15) H 10/07/21 20:45 Sodium 134 mmol/L (136-145) L 10/07/21 20:45 Potassium 4.4 mmol/L (3.5-5.1) 10/07/21 20:45 Chloride 102 mmol/L (98-107) 10/07/21 20:45 Carbon Dioxide 22 mmol/L (22-29) 10/07/21 20:45 Anion Gap 14.4 (5-19) 10/07/21 20:45 BUN 15 mg/dL (8-23) 10/07/21 20:45 Creatinine 0.6 mg/dL (0.5-0.9) 10/07/21 20:45 GFR Calculation Not Reportable 10/07/21 20:45 Glucose 165 mg/dL (65-115) H 10/07/21 20:45 Calculated Osmolality 283 mOsm/kg (285-295) L 10/07/21 20:45 Calcium 7.6 mg/dL (8.5-10.5) L 10/07/21 20:45 Total Bilirubin 0.3 mg/dL (0.15-1.2) 10/07/21 20:45 AST 44 U/L (0-32) H 10/07/21 20:45 ALT 29 U/L (0-33) 10/07/21 20:45 Alkaline Phosphatase 125 IU/L (35-105) H 10/07/21 20:45 C-Reactive Protein 120.8 mg/L (0.0-4.9) H 10/07/21 20:45 Total Protein 5.8 g/dL (6.6-8.7) L 10/07/21 20:45 Albumin 2.2 g/dL (3.5-5.2) L 10/07/21 20:45 Globulin 3.6 g/dL (1.3-4.6) 10/07/21 20:45 Lipase 14 U/L (13-60) 10/07/21 20:45 Discharge Plan Discharge Patient Disposition: Admitted As Inpatient Clinical Impression: Decubitus ulcer, infected Condition: Stable 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
[2021-10-07 21:32] LABS: Alanine Aminotransferase 29 U/L (0-33); Albumin Level 2.2 g/dL (3.5-5.2); Alkaline Phosphatase 125 IU/L (35-105); Aspartate Amino Transferase 44 U/L (0-32); Blood Urea Nitrogen 15 mg/dL (8-23); C Reactive Protein 120.8 mg/L (0.0-4.9); Calcium 7.6 mg/dL (8.5-10.5); Carbon Dioxide 22 mmol/L (22-29); Chloride 102 mmol/L (98-107); Erythrocyte Sedimentation Rate 29 mm/hr (0-15); Globulin 3.6 g/dL (1.3-4.6); Glucose 165 mg/dL (65-115); Lipase 14 U/L (13-60); Osmolality Calculated 283 mOsm/kg (285-295); Sodium 134 mmol/L (136-145); Total Bilirubin 0.3 mg/dL (0.15-1.2); Total Protein 5.8 g/dL (6.6-8.7)
[2021-10-07 21:33] LABS: Anion Gap 14.4 (5-19); Potassium 4.4 mmol/L (3.5-5.1)
[2021-10-07] MEDS: iohexol 350 mg/mL 100 mL Btl IV (22:17)
[2021-10-07] MEDS: vancomycin 1,000 MG in sodium chloride 0.9% 250 ML 250 MG IV (22:22)
[2021-10-07] MEDS: piperacillin-tazobactam 4.5 GM in sodium chloride 0.9% (plus) 50 ML IV (22:23)
[2021-10-07 22:56] VITALS: BP 102/41; PULSE 97; RESP 18; O2SAT 99
[2021-10-07 23:53] VITALS: BP 117/45; PULSE 97; RESP 18; O2SAT 99
[2021-10-08] VITALS (7 sets, daily range): BP systolic 106–134; BP diastolic 46–68; PULSE 98–119; RESP 14–17; TEMP 36.3–37.3; O2SAT 92–99
[2021-10-08] LABS: Specific Gravity, Urine 1.005 (1.005-1.030); Urine Appearance Cloudy (CLEAR); Urine Color Yellow (Yellow); pH Urine 6 (5-7)
[2021-10-08 00:01] LABS: Add Urine Microscopic? YES; Bilirubin Urine Neg (Negative); Blood Urine 2+ (Negative); Glucose Urine UA Norm (Normal); Ketones Urine Negative (Negative); Leukocyte Esterase Urine 2+ (Negative); Nitrate Urine Negative (Negative); Protein Urine Trace (Negative); Urobilinogen Urine Norm (Negative)
[2021-10-08 00:18] LABS: WBC Urine TOO NUMEROUS TO CNT /hpf (0-5)
[2021-10-08 00:19] LABS: Add Urine Culture? Yes; Bacteria Urine 1+ /hpf; Squamous Epithelial Cell Urine 0-4 /hpf (0-5)
[2021-10-08] MEDS: morphine 4 mg/mL SDV 1 mL IVP (00:45)
--- NOTE | 2021-10-08 01:00 | PM.HP ---
Providers/Chief Complaint Primary Care Provider: Khloe Arthur DO Chief Complaint: INFECTED ULCERS History of Present Illness 81-year-old bedbound lady with history of PVD, history of right foot osteomyelitis, recent withdrawn right fifth digit amputation, continued with wet-to-dry wound dressing changes, follow-up with wound care, also with sacral decubitus ulcer which we are pending additional assessment, returns to the hospital currently due to pain, purulent discharge, worsening condition of the sacral decubital ulcer. Mild confusion. Surgery was contacted from ER. CT scanning was obtained as well showing for her sacral spine also extending to the sacral 3. Coccyx. Incidentally seen with protrusion. Partial left lower lobe atelectasis. Cholelithiasis. Additional other findings in the full report. Following recent hospitalization she has been on 2 L nasal cannula oxygen, currently saturating 99%. In ER also noted abnormal urinalysis with too numerous to count WBCs, 0-4 squamous pleural cells. 5 RBCs. Negative nitrate. Bacteria and yeast. History obtained mostly from her niece who is accompanying her by the bedside. Review of Systems Const: Reports: other (Weak); Denies: fever(s), chills, body aches or malaise Eyes: Denies: change in vision, eye discomfort or eye redness ENMT: Denies: throat pain, oral sores or ear or mastoid pain Card: Denies: chest pain, edema, pre-syncope or dyspnea on exertion Resp: Denies: dyspnea, productive cough, change in phlegm color or hemoptysis GI: Denies: abdominal pain, nausea, vomiting, diarrhea, constipation, hematochezia or melena : Denies: flank pain, urinary frequency or hematuria Musc: Reports: back pain (sacrum) and extremity pain (feet); Denies: joint swelling or joint redness Skin/Breast: Denies: rash or new lesions Neuro: Reports: confusion (Mild); Denies: headache(s), numbness in extremities, weakness in extremities, dizziness or seizure-like activity Endo: Denies: polyuria or polydipsia Adal/Lymph: Denies: easy bleeding or tender lymph nodes All/Imm: Denies: urticaria or tongue swelling Medications/Allergies Home Medications Medication Instructions Recorded Confirmed Last Taken Type hydrocodone 5 mg-acetaminophen 325 0.5 - 1 tab PO BID PRN 12/03/19 09/06/21 12/15/20 History mg tablet tramadol 50 mg tablet 50 mg PO BID PRN 05/23/21 09/06/21 Unknown History amitriptyline 50 mg tablet 100 mg PO BEDTIME 90 Days #180 tab 06/23/21 09/06/21 Unknown Rx baclofen 5 mg tablet 5 mg PO TID #270 tab 06/23/21 09/06/21 Unknown Rx clopidogrel 75 mg tablet (Plavix) 75 mg PO QAM 90 Days #90 tab 06/23/21 09/06/21 Unknown Rx denosumab 60 mg/mL subcutaneous 60 mg SUBCUT .COMPLEX #1 ml 06/23/21 09/06/21 08/14/21 Rx syringe (Prolia) duloxetine 30 mg capsule,delayed 30 mg PO BEDTIME 90 Days #90 cap 06/23/21 09/06/21 Unknown Rx release (Cymbalta) metoclopramide HCl 5 mg tablet 5 mg PO BID PRN 90 Days #180 tab 06/23/21 09/06/21 Unknown Rx (Reglan) oxybutynin chloride 5 mg tablet 5 mg PO QAM 90 Days #90 tab 06/23/21 09/06/21 Unknown Rx pantoprazole 40 mg tablet,delayed 40 mg PO BID 90 Days #180 tab 06/23/21 09/06/21 Unknown Rx release (Protonix) pentoxifylline 400 mg 400 mg PO TID #90 tab 07/04/21 09/06/21 Unknown Rx tablet,extended release levothyroxine 50 mcg tablet 50 mcg PO QAM 90 Days #90 tab 07/20/21 09/06/21 Unknown Rx acetaminophen 325 mg tablet 325 - 650 mg PO Q6H PRN 09/06/21 09/06/21 Unknown History (Tylenol) atorvastatin 40 mg tablet 40 mg PO BEDTIME 09/06/21 09/06/21 Unknown History cholecalciferol (vitamin D3) 1,250 1,250 mcg PO Q7D 09/06/21 09/06/21 Unknown History mcg (50,000 unit) capsule nystatin 100,000 unit/gram topical 1 applic TOPICAL BID PRN 09/06/21 09/06/21 Unknown History cream vit C 250 mg-vit E 90 mg-zinc 40 1 tab PO BID 09/06/21 09/06/21 Unknown History mg-copper 1 [id number] capsule (PreserVision AREDS-2) amlodipine 10 mg tablet 5 mg PO DAILY #30 tab 09/16/21 Unknown Rx levofloxacin 750 mg tablet 750 mg PO DAILY@0600 #5 tab 09/16/21 Unknown Rx sennosides 8.6 mg-docusate sodium 1 tab PO BID #20 tab 09/16/21 Unknown Rx 50 mg tablet (Stool Softener-Laxative) tramadol 50 mg tablet 50 mg PO Q4H PRN #20 tab 09/16/21 Unknown Rx Allergies Allergy/AdvReac Type Severity Reaction Status Date / Time alendronate sodium AdvReac Mild unknown Verified 09/06/21 09:07 [From Fosamax] pregabalin [From Lyrica] AdvReac Mild unknown Verified 09/06/21 09:07 PFSH Acute PFSH: Medical History CVA (cerebral vascular accident) Dehydration Fibromyalgia GERD (gastroesophageal reflux disease) Hypothyroidism Leukocytosis Lumbar degenerative disc disease Mixed incontinence Neuropathy Osteoarthritis Osteomyelitis of ankle or foot, right, acute Osteoporosis PAD (peripheral artery disease) Pressure ulcer of right foot, stage 2 Right foot ulcer SIRS (systemic inflammatory response syndrome) Urinary incontinence Vomiting Surgical History H/O dilation and curettage H/O esophagogastroduodenoscopy (12/16/20) H/O hand surgery H/O knee surgery H/O tubal ligation History of colonoscopy 1997 History of open reduction and internal fixation (ORIF) procedure right hip History of tonsillectomy Family History Sister Cancer PANCREATIC Other CAD (coronary artery disease) Hypertension Lung disease Social History Smoking and tobacco status: never smoked Alcohol intake: never Vitals/I&O/Wt Last Vital Signs Temp 98.5 F 10/07/21 21:13 Pulse 97 10/07/21 23:53 Resp 18 10/07/21 23:53 BP 117/45 10/07/21 23:53 Pulse Ox 99 10/07/21 23:53 Physical Exam Narrative: Her niece is accompanying her at the bedside. Const: COMMON NORMALS: alert GENERAL APPEARANCE: cooperative and frail appearing NUTRITIONAL APPEARANCE: thin ORIENTATION/CONSCIOUSNESS: Yes awake OTHER: Generally weak. Laying on her left side antalgic position. HENMT: COMMON NORMALS: normocephalic, EAC's normal, Normal external nose present and moist oral mucous membranes HEAD & SCALP: normocephalic NOSE: Normal external nose present EXTERNAL AUDITORY CANAL: EAC's normal Neck/C-Spine: COMMON NORMALS: no meningeal signs Chest: CHEST: Yes Symmetrical chest wall rise Resp: COMMON NORMALS: clear to auscultation bilaterally AUSCULTATION: clear to auscultation bilaterally Cardio: COMMON NORMALS: regular rate, regular rhythm and No murmurs present (Cardio) RATE: regular rate RHYTHM: regular rhythm GI: COMMON NORMALS: Normal to inspection, nondistended, normoactive bowel sounds present, Soft to palpation and non-tender PALPATION: Yes Soft to palpation Extremity: COMMON NORMALS: no pedal edema OTHER: foot/ankle protectors Neuro: COMMON NORMALS: moves all extremities SENSORIUM/ORIENTATION: Yes alert MENINGEAL SIGNS: Yes no meningeal signs Psych: COMMON NORMALS: mental status grossly normal Skin: RASHES: no rashes WOUNDS: Yes wounds noted (large sacral decubital ulcer with partial tissue loss, purulence, DTI) OTHER: DTI plantar R heel. Clean bed of amputated R 5th digit w wet-dry dressing. Data : 10/07/21 20:45 10/07/21 20:45 Micro: Microbiology 10/07/21 22:32 Blood Culture - Preliminary Blood SPECIMEN COLLECTED 10/07/21 22:35 Blood Culture - Preliminary Blood SPECIMEN COLLECTED A&P Assessment and plan (1) Decubitus ulcer, infected: Previously noted Pseudomonas in culture with right foot infection. Continue with antipseudomonal coverage with Zosyn, continue vancomycin. Wet-to-dry dressing for now. Pending additional assessment for debridement of the necrotic wound and DTI by surgery. Obtain wound cultures. Follow-up blood culture. Status: Acute (2) Suspected deep tissue injury of unknown depth of heel: Plantar R heel. Pending surgical evaluation. Status: Acute (3) Abnormal urinalysis: Abnormal urinalysis with too numerous to count WBCs, possible UTI, but may be contamination due to large amount of purulence from sacral decub, with wound extenuated over the sacrum. Empiric antibiotics as above. Follow-up urine culture. Status: Acute Plan Recent amputation of right fifth toe: Continue wet-to-dry dressings. PVD: Statin, Plavix, pentoxifylline History of CVA: Plavix, statin CHF: Recently started on oxygen, currently down to 2 L nasal cannula. Esophageal spasm Hypothyroidism Lumbar disc disease History of hip fracture Nonambulatory Other chronic medical problems. Attestations Medical Necessity Statement*: Admission of over 2 midnights is anticipated for assessment of management of infected large decubitus ulcer, deep tissue injury of multiple locations in a bedbound lady with underlying PVD and other comorbidities. Coding Level of Care Code Acute Taper Printed Circuit Layout for [facility] Fw Exam Comprehensive Diagnoses Decubitus ulcer, infected L89.90; L08.9 Abnormal urinalysis R82.90 Suspected deep tissue injury of unknown depth of heel R68.89
--- NOTE | 2021-10-08 08:41 | PC.PHAR ---
PT IS FROM [facility]-PT HAD A PROLIA RX WRITTEN 06/23/21 FOR EVERY 6 MONTHS SPOKE TO CINDY NURSE FROM [facility] STATES ITS NOT ON THE PTS ORDERS AT THIS TIME STATES SHE WILL TALK TO THE PROVIDER DURING THE WEEK AND ASK IF PT IS STILL TO BE ON -MEDICATIONS ENTERED ARE MEDS FOR THE PTS MAR THAT SEEMA DIAZ FAXED
[2021-10-08] MEDS: piperacillin-tazobactam 3.375 GM in sodium chloride 0.9% (plus) 50 ML IV ×3 (09:44→23:45)
[2021-10-08] MEDS: pantoprazole DR 40 mg Tablet PO ×2 (09:44→20:03)
[2021-10-08] MEDS: oxybutynin 5 mg Tablet PO (09:45)
[2021-10-08] MEDS: heparin 5,000 unit/mL INJ 1 mL 5000 UNIT SUBCUT ×3 (09:45→21:52)
[2021-10-08] MEDS: clopidogrel 75 mg Tablet PO (09:45)
[2021-10-08] MEDS: levothyroxine 50 mcg Tablet PO (09:45)
[2021-10-08] MEDS: sennosides-docusate Tablet 1 TAB PO (09:46)
[2021-10-08] MEDS: TRAMadol 50 mg Tablet PO ×2 (09:52→16:44)
--- NOTE | 2021-10-08 10:27 | P.CONIM_ITS ---
Providers/Reason For Consult Consulting Physician/Specialty*: Tucker Craven MD Reason for Consult*: Pressure injury ulcers Requesting Physician: Dr. Atwood Attending Physician: Hi Jacobsen Primary Care Provider: Khloe Arthur DO History of Present Illness History of Present Illness Ms. Gina Bennett is a pleasant 81 years old female with history of peripheral vascular disease, right foot osteomyelitis, had right fifth toe amputation recently. Patient has a sacral pressure injury ulcer and has been followed up on at the wound care center. Patient has surgery scheduled by Dr. Chen on 11 October for debridement of her sacral pressure injury ulcer. As [facility] been a [facility] resident she came to the ER yesterday with concern of UTI and undergone a CT of the abdomen and pelvis That that did show; 1. Large sacral decubitus ulcer extending to the sacral tip and coccyx. 2. Left pleural effusion 3. Partial left lower lobe atelectasis 4. Cholelithiasis 5. Other intra-abdominal findings not significantly changed from 09/06/2021 General surgery was consulted for further evaluation and potential intervention. Most of the history was obtained from the patient's niece bedside and the nursing staff. Review of Systems General: Reports: 10 or more systems reviewed and unremarkable except in HPI and below Medications/Allergies Home Medications Medication Instructions Recorded Confirmed Last Taken Type hydrocodone 5 mg-acetaminophen 325 See Rx Instructions .ROUTE .COMPLEX 12/03/19 10/08/21 12/15/20 History mg tablet baclofen 5 mg tablet 5 mg PO TID #270 tab 06/23/21 10/08/21 Unknown Rx clopidogrel 75 mg tablet (Plavix) 75 mg PO QAM 90 Days #90 tab 06/23/21 10/08/21 Unknown Rx oxybutynin chloride 5 mg tablet 5 mg PO QAM 90 Days #90 tab 06/23/21 10/08/21 Unknown Rx pantoprazole 40 mg tablet,delayed 40 mg PO BID 90 Days #180 tab 06/23/21 10/08/21 Unknown Rx release (Protonix) pentoxifylline 400 mg 400 mg PO TID #90 tab 07/04/21 10/08/21 Unknown Rx tablet,extended release levothyroxine 50 mcg tablet 50 mcg PO QAM 90 Days #90 tab 07/20/21 10/08/21 Unknown Rx acetaminophen 325 mg tablet 650 mg PO Q6H PRN 09/06/21 10/08/21 Unknown History (Tylenol) atorvastatin 40 mg tablet 40 mg PO BEDTIME 09/06/21 10/08/21 Unknown History cholecalciferol (vitamin D3) 1,250 1,250 mcg PO Q7D 09/06/21 10/08/21 Unknown History mcg (50,000 unit) capsule amitriptyline 100 mg tablet 100 mg PO DAILY 10/08/21 10/08/21 Unknown History amlodipine 5 mg tablet 5 mg PO DAILY 10/08/21 10/08/21 Unknown History bisacodyl 10 mg rectal suppository [address] DAILY PRN 10/08/21 10/08/21 Unknown History (Dulcolax (bisacodyl)) collagenase clostridium histo. 250 See Rx Instructions .ROUTE .COMPLEX 10/08/21 10/08/21 Unknown History unit/gram topical ointment duloxetine 30 mg capsule,delayed 30 mg PO DAILY 10/08/21 10/08/21 Unknown History release (Cymbalta) magnesium hydroxide 400 mg/5 mL 30 ml PO Q24H PRN 10/08/21 10/08/21 Unknown History oral suspension (Milk of Magnesia) metoclopramide HCl 5 mg tablet 5 mg PO Q12H PRN 10/08/21 10/08/21 Unknown H istory (Reglan) nystatin 100,000 unit/gram topical See Rx Instructions .ROUTE .COMPLEX 10/08/21 10/08/21 Unknown History powder sennosides 8.6 mg-docusate sodium 1 tab PO BID 10/08/21 10/08/21 Unknown History 50 mg tablet (Senna-S) sodium phosphates 19 gram-[address] DAILY PRN 10/08/21 10/08/21 Unknown History gram/118 mL enema (Fleet Enema) tramadol 50 mg tablet (Ultram) 50 mg PO Q12H PRN 10/08/21 10/08/21 Unknown History vitamins A,C,E-kuwf-pbzeog 14,320 1 cap PO BID 10/08/21 10/08/21 Unknown History unit-226 mg-200 unit capsule (PreserVision AREDS) Allergies Allergy/AdvReac Type Severity Reaction Status Date / Time alendronate sodium AdvReac Mild unknown Verified 10/08/21 10:38 [From Fosamax] pregabalin [From Lyrica] AdvReac Mild unknown Verified 10/08/21 10:38 PFSH Acute PFSH: Medical History CVA (cerebral vascular accident) Dehydration Fibromyalgia GERD (gastroesophageal reflux disease) Hypothyroidism Leukocytosis Lumbar degenerative disc disease Mixed incontinence Neuropathy Osteoarthritis Osteomyelitis of ankle or foot, right, acute Osteoporosis PAD (peripheral artery disease) Pressure ulcer of right foot, stage 2 Right foot ulcer SIRS (systemic inflammatory response syndrome) Urinary incontinence Vomiting Surgical History H/O dilation and curettage H/O esophagogastroduodenoscopy (12/16/20) H/O hand surgery H/O knee surgery H/O tubal ligation History of colonoscopy 1997 History of open reduction and internal fixation (ORIF) procedure right hip History of tonsillectomy Family History Sister Cancer PANCREATIC Other CAD (coronary artery disease) Hypertension Lung disease Social History Smoking and tobacco status: never smoked Alcohol intake: never Vitals/I&O/Wt Last Vital Signs Temp 97.4 F L 10/08/21 07:38 Pulse 101 H 10/08/21 08:42 Resp 14 10/08/21 08:42 BP 114/57 10/08/21 07:38 Pulse Ox 98 10/08/21 08:42 Weight last 48 hrs Weight 108 lb 0.424 oz Physical Exam Narrative: Patient is conscious alert oriented X3 No apparent distress BMI 16.4 Head and neck examination PERRLA no masses no cervical lymphadenopathy no jaundice Cardiac examination audible S1-S2 no murmurs no gallops no arrhythmias Chest is clear bilateral,abscence of Rhonchi or wheezes,no surgical emphysema Abdomen nontender nondistended soft no organomegaly guarding or rigidity/no signs of peritonitis Extremities contracted Physical examination was done in the presence of 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 Malodorous Right heel unspecified pressure injury ulcer and a wound located at the site of a previous amputation of the right fifth toe measures 4 x 2 x 1.5 cm with healthy granulation tissue and mild necrotic tissues at the base. No bone exposure. Data : 10/07/21 20:45 10/07/21 20:45 Micro: Microbiology 10/08/21 01:30 Gram Stain - Final Back 10/07/21 22:32 Blood Culture - Preliminary Blood SPECIMEN COLLECTED 10/07/21 22:35 Blood Culture - Preliminary Blood SPECIMEN COLLECTED A&P Assessment and plan (1) Sacral decubitus ulcer, stage IV: After history taking physical examination and reviewing the chart and images of the CT scan with my personal interpretation. 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 Indications, risks, benefits alternatives were discussed with the patient and she did agree to proceed accordingly. Patient understands that she does have a guarded prognosis and aim is to minimize complications of the pressure injury ulcer and provide the patient a better quality of life. I do not expect that this ulcer will heal given the cachectic nature of the patient's habitus and malnutrition. Nutrition consultation would be appropriate Informed consent in the chart N.p.o. after midnight Assurance and education All questions have been answered and all concerns have been addressed to patient's satisfaction. 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
--- NOTE | 2021-10-08 12:20 | PM.PN ---
Subjective Subjective: Patient was seen this morning, her daughter is at bedside, she is alert to person, not to place, not to time, she falls back asleep, her daughter is at bedside, she tells me that she is much more confused at the detention, she is normally alert oriented x3, no significant neurologic decline, she can feed herself, but she is wheelchair-bound, Vitals/I&O/Wt Last Vital Signs Temp 97.4 F L 10/08/21 12:00 Pulse 112 H 10/08/21 12:00 Resp 14 10/08/21 12:00 BP 123/58 10/08/21 12:00 Pulse Ox 92 10/08/21 12:00 Weight last 48 hrs Weight 49 kg Physical Exam Const: COMMON NORMALS: no acute distress EXAM LIMITATIONS: altered mental status Resp: COMMON NORMALS: normal respiratory effort, No retractions, No use of accessory muscles and clear to auscultation bilaterally AUSCULTATION: clear to auscultation bilaterally Cardio: COMMON NORMALS: regular rate, regular rhythm, S1 normal heart sound present and S2 normal heart sound present RATE: regular rate RHYTHM: regular rhythm HEART SOUNDS: S1 normal heart sound present and S2 normal heart sound present GI: COMMON NORMALS: Normal to inspection, nondistended, normoactive bowel sounds present, Soft to palpation and non-tender PALPATION: Yes Soft to palpation Extremity: OTHER: Sacral decubitus ulcer, measuring 4 x 5 cm with surrounding erythema, with tunneling, muscle exposed, no visible bone Right lower extremity, lateral aspect, open area pressure wound, active drainage measuring one x 4 cm Right heel, pressure wound, active drainage, 1 x 1 cm Psych: COMMON NORMALS: mental status grossly normal Data : 10/07/21 20:45 10/07/21 20:45 Micro: Microbiology 10/08/21 01:30 Gram Stain - Final Back 10/07/21 22:32 Blood Culture - Preliminary Blood SPECIMEN COLLECTED 10/07/21 22:35 Blood Culture - Preliminary Blood SPECIMEN COLLECTED A&P Assessment and plan (1) Decubitus ulcer, infected: Previously noted Pseudomonas in culture with right foot infection. Continue with antipseudomonal coverage with Zosyn, continue vancomycin. Wet-to-dry dressing for now. Pending additional assessment for debridement of the necrotic wound and DTI by surgery. Obtain wound cultures. Follow-up blood culture. Has received Plavix this morning, hold, plan on surgical intervention tomorrow Given CT's scan findings, tunneling down to bone, highly suspicious for osteomyelitis likely will require IV antibiotics for at least 6 weeks But will reassess after surgery Status: Acute (2) Suspected deep tissue injury of unknown depth of heel: Plantar R heel. In addition to the lateral aspect of the foot without significant drainage, pending surgical evaluation. Status: Acute (3) Abnormal urinalysis: Abnormal urinalysis with too numerous to count WBCs, possible UTI, but may be contamination due to large amount of purulence from sacral decub, with wound extenuated over the sacrum. Empiric antibiotics as above. Follow-up urine culture. Status: Acute (4) Acute encephalopathy: Status: Acute (5) Sepsis: Status: Acute Plan Acute encephalopathy, secondary to sepsis, secondary to sacral decubitus ulcer, foot ulcers Recent amputation of right fifth toe: Continue wet-to-dry dressings. PVD: Statin, , pentoxifylline History of CVA: Plavix on hold CHF: Recently started on oxygen, currently down to 2 L nasal cannula. Esophageal spasm Hypothyroidism Lumbar disc disease History of hip fracture Nonambulatory Other chronic medical problems. 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
[2021-10-08] MEDS: docusate sodium 100 mg Capsule PO (12:43)
[2021-10-08] MEDS: dextrose 5%-sod chloride 0.9% 1,000 ML 75 ML IV ×2 (12:44→23:45)
[2021-10-08] MEDS: polyethylene glycol 3350 Pkt 17 gm PO (12:44)
[2021-10-08 12:54] LABS: Erythrocyte Sedimentation Rate 34 mm/hr (0-15)
[2021-10-08] MEDS: baclofen 10 mg Tablet 5 MG PO (16:44)
[2021-10-08] MEDS: atorvastatin 40 mg Tablet PO (20:02)
[2021-10-08] MEDS: duloxetine 30 mg Capsule PO (20:02)
[2021-10-08] MEDS: HYDROcodone-acetaminophen 5-325 mg Tablet 1 TAB PO (20:02)
[2021-10-08] MEDS: amitriptyline 25 mg Tablet 100 MG PO (20:03)
[2021-10-08] MEDS: vancomycin 1,000 MG in sodium chloride 0.9% 250 ML 250 MG IV (21:51)
[2021-10-09] VITALS (11 sets, daily range): BP systolic 87–122; BP diastolic 46–57; PULSE 91–103; RESP 14–17; TEMP 36.2–37.4; O2SAT 81–100
[2021-10-09 03:59] LABS: Basophils # 0.1 10^3/uL (0.0-0.1); Basophils % 0.7 %; Eosinophils # 0.7 10^3/uL (0.0-0.8); Eosinophils % 7.4 %; Hematocrit 27.9 % (37.0-47.0); Hemoglobin 8.8 g/dL (11.5-15.3); Lymphocytes % 11.5 %; Mean Corpuscular HGB Conc 31.5 g/dL (30.0-36.0); Mean Corpuscular Volume 92.1 fl (81-99); Mean Platelet Volume 10.2 fL (7.4-10.4); Monocytes # 0.8 10^3/uL (0.2-0.9); Monocytes % 8.9 %; Neutrophils # 6.24 10^3/uL (1.8-7.7); Neutrophils % 70.6 %; Nucleated Red Blood Cells % 0 %; Platelet Count 469 10^3/cmm (130-400); Red Blood Count 3.03 10^6/uL (4.1-5.3); Red Cell Distribution Width 15.6 % (12.1-15.1); White Blood Count 8.8 10^3/uL (4.0-10.0)
[2021-10-09 04:11] LABS: INR 1.15 (0.8-1.2)
[2021-10-09 04:19] LABS: Lactate (Lactic Acid level) 0.8 mmol/L (0.5-2.2)
[2021-10-09 04:25] LABS: Alanine Aminotransferase 27 U/L (0-33); Albumin Level 1.9 g/dL (3.5-5.2); Alkaline Phosphatase 117 IU/L (35-105); Blood Urea Nitrogen 15 mg/dL (8-23); C Reactive Protein 80.1 mg/L (0.0-4.9); Calcium 7.3 mg/dL (8.5-10.5); Carbon Dioxide 21 mmol/L (22-29); Chloride 105 mmol/L (98-107); Globulin 3.8 g/dL (1.3-4.6); Glucose 129 mg/dL (65-115); Magnesium 1.8 mg/dL (1.7-2.3); Osmolality Calculated 283 mOsm/kg (285-295); Phosphorus 2.7 mg/dL (2.5-4.5); Sodium 135 mmol/L (136-145); Total Bilirubin 0.3 mg/dL (0.15-1.2); Total Protein 5.7 g/dL (6.6-8.7)
[2021-10-09 04:26] LABS: Anion Gap 13.3 (5-19); Potassium 4.3 mmol/L (3.5-5.1)
[2021-10-09 04:27] LABS: Aspartate Amino Transferase 33 U/L (0-32); Procalcitonin 0.17 ng/mL (0-0.5)
--- NOTE | 2021-10-09 06:48 | PM.PN ---
Subjective Medications: Reviewed: Yes Vitals/I&O/Wt Last Vital Signs Temp 97.5 F L 10/09/21 04:00 Pulse 92 10/09/21 04:00 Resp 16 10/09/21 04:00 BP 115/50 10/09/21 04:00 Pulse Ox 92 10/09/21 04:00 10/08/21 10/08/21 10/09/21 14:59 22:59 06:59 Intake Total 50 / 50 620 / 670 1126.25 / 1796.25 Output Total 400 / 400 225 / 625 Balance 50 / 50 220 / 270 901.25 / 1171.25 Weight last 48 hrs Weight 104 lb 14.4 oz Weight 108 lb 0.424 oz Physical Exam Narrative: Patient is conscious alert oriented X3 No apparent distress BMI 16.4 Extremities contracted Dressing in place Urinary Catheter Management: Clay: Cath Placed During This Visit: yes Reason for Continuing Indwelling Catheter: Assist Healing of Perineal & Sacral Wounds- Incontinent Patients Urinary Catheter Date of Insertion: 10/08/21 Data : 10/09/21 03:15 10/09/21 03:15 Micro: Microbiology 10/07/21 22:35 Blood Culture - Preliminary Blood NEGATIVE TO DATE 10/07/21 22:32 Blood Culture - Preliminary Blood NEGATIVE TO DATE 10/08/21 01:30 Gram Stain - Final Back A&P Assessment and plan (1) Sacral decubitus ulcer, stage IV: Proceed with surgery today.,patient has been on Plavix. Risks Benefits discussed and patient intrested to proceed. Assurance and education All questions have been answered and all concerns have been addressed to patient's satisfaction. 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
[2021-10-09] MEDS: sodium chloride 0.9% 1,000 ML 30 ML IV (07:58)
[2021-10-09] MEDS: acetaminophen 1,000 MG/100 ML PIGGYBACK 400 MG IV (08:03)
--- NOTE | 2021-10-09 08:13 | ANES.PREANE2 ---
Pre-Anesthetic Assessment Height/Weight: Height 1.73 m Weight 47.582 kg Temp Pulse Resp BP Pulse Ox 97.5 F L 92 16 118/46 95 10/09/21 04:00 10/09/21 07:55 10/09/21 07:55 10/09/21 07:55 10/09/21 07:55 Preop Diagnosis: Sacral pressure injury ulcer and right foot ulcers Operation Date: 10/09/21 08:10 Proposed Procedures p Debridement of sacrum and right foot ulcers(Bilateral) - Tucker Craven MD Familial anesthetic complications: breathing problems and heart problems Was Beta Ambrose taken within 24 hours: N/A Was Clonidine taken within 24 hours: N/A Last intake: Intake Last Liquid Date 10/09/21 Last Liquid Time 21:52 Last Solid Date 10/08/21 Last Solid Time 17:00 Social No alcohol and No tobacco Exam alert, oriented x 3, clear to auscultation bilaterally and regular rate & rhythm Airway Submandibular: within normal limits Cervical ROM: within normal limits Mallampati: Class II Dentition: chipped Pulmonary Chronic Obstructive Pulmonary Disease (Home O2) CV/HEM Anemia and Hypertension ? This is a technically difficult study with poor windows. ?2.? Normal left ventricular size and grossly possibly mildly ?decreased systolic function.? This study is inadequate for ?estimation of regional wall motion abnormality. ?3.? No prior similar studies to compare. ?Mya Wild MD ?(Electronically Signed) ?Final Date:? ? ? 13 September 2021 GI Gastroesophageal Reflux Disease gastroparesis Metabolic Hyperlipidemia and Thyroid Disease [facility] Fibromyalgia, Lower Back Pain and Weakness Neuropsych Anxiety, Cerebrovascular Accident and Neuropathy Anesthetic Plan ASA status: 3 Anesthesia: Choice Medications/Allergies Home Medications Medication Instructions Recorded Confirmed Last Taken Type hydrocodone 5 mg-acetaminophen 325 See Rx Instructions .ROUTE .COMPLEX 12/03/19 10/08/21 12/15/20 History mg tablet baclofen 5 mg tablet 5 mg PO TID #270 tab 06/23/21 10/08/21 Unknown Rx clopidogrel 75 mg tablet (Plavix) 75 mg PO QAM 90 Days #90 tab 06/23/21 10/08/21 Unknown Rx oxybutynin chloride 5 mg tablet 5 mg PO QAM 90 Days #90 tab 06/23/21 10/08/21 Unknown Rx pantoprazole 40 mg tablet,delayed 40 mg PO BID 90 Days #180 tab 06/23/21 10/08/21 Unknown Rx release (Protonix) pentoxifylline 400 mg 400 mg PO TID #90 tab 07/04/21 10/08/21 Unknown Rx tablet,extended release levothyroxine 50 mcg tablet 50 mcg PO QAM 90 Days #90 tab 07/20/21 10/08/21 Unknown Rx acetaminophen 325 mg tablet 650 mg PO Q6H PRN 09/06/21 10/08/21 Unknown History (Tylenol) atorvastatin 40 mg tablet 40 mg PO BEDTIME 09/06/21 10/08/21 Unknown History cholecalciferol (vitamin D3) 1,250 1,250 mcg PO Q7D 09/06/21 10/08/21 Unknown History mcg (50,000 unit) capsule amitriptyline 100 mg tablet 100 mg PO DAILY 10/08/21 10/08/21 Unknown History amlodipine 5 mg tablet 5 mg PO DAILY 10/08/21 10/08/21 Unknown History bisacodyl 10 mg rectal suppository 10 mg [place] DAILY PRN 10/08/21 10/08/21 Unknown History (Dulcolax (bisacodyl)) collagenase clostridium histo. 250 See Rx Instructions .ROUTE .COMPLEX 10/08/21 10/08/21 Unknown History unit/gram topical ointment duloxetine 30 mg capsule,delayed 30 mg PO DAILY 10/08/21 10/08/21 Unknown History release (Cymbalta) magnesium hydroxide 400 mg/5 mL 30 ml PO Q24H PRN 10/08/21 10/08/21 Unknown History oral suspension (Milk of Magnesia) metoclopramide HCl 5 mg tablet 5 mg PO Q12H PRN 10/08/21 10/08/21 Unknown History (Reglan) nystatin 100,000 unit/gram topical See Rx Instructions .ROUTE .COMPLEX 10/08/21 10/08/21 Unknown History powder sennosides 8.6 mg-docusate sodium 1 tab PO BID 10/08/21 10/08/21 Unknown History 50 mg tablet (Senna-S) sodium phosphates 19 gram-7 118 ml [place] DAILY PRN 10/08/21 10/08/21 Unknown History gram/118 mL enema (Fleet Enema) tramadol 50 mg tablet (Ultram) 50 mg PO Q12H PRN 10/08/21 10/08/21 Unknown History vitamins A,C,P-qmbp-aazvhc 14,320 1 cap PO BID 10/08/21 10/08/21 Unknown History unit-226 mg-200 unit capsule (PreserVision AREDS) Allergies Allergy/AdvReac Type Severity Reaction Status Date / Time alendronate sodium AdvReac Mild unknown Verified 10/08/21 10:38 [From Fosamax] pregabalin [From Lyrica] AdvReac Mild unknown Verified 10/08/21 10:38 Current Medications Generic Name Dose Route Start Last Admin Trade Name Freq PRN Reason Stop Dose Admin Hydrocodone Bitart/Acetaminophen 1 tab 10/08/21 07:12 10/08/21 20:02 Hydrocodone-Acetaminophen 5-325 Mg Tablet PO 1 tab BID PRN Administration Pain Amitriptyline HCl 100 mg 10/08/21 21:00 10/08/21 20:03 Amitriptyline 25 Mg Tablet PO 100 mg BEDTIME ZEKE Administration Atorvastatin Calcium 40 mg 10/08/21 21:00 10/08/21 20:02 Atorvastatin 40 Mg Tablet PO 40 mg BEDTIME ZEKE Administration Baclofen 5 mg 10/08/21 07:12 10/08/21 16:44 Baclofen 10 Mg Tablet PO 5 mg TID PRN Administration MUSCLE SPASMS Docusate Sodium 100 mg 10/08/21 10:35 10/08/21 16:38 Docusate Sodium 100 Mg Capsule PO Not Given BID ZEKE Duloxetine HCl 30 mg 10/08/21 21:00 10/08/21 20:02 Duloxetine 30 Mg Capsule PO 30 mg BEDTIME ZEKE Administration Heparin Sodium (Porcine) 5,000 unit 10/08/21 07:12 10/08/21 21:52 Heparin 5,000 Unit/Ml Inj 1 Ml SUBCUT 5,000 unit Q8H ZEKE Administration Piperacillin Sod/Tazobactam 50 mls @ 12.5 mls/hr 10/08/21 08:00 10/09/21 03:59 Sod 3.375 gm/ Sodium Chloride IV Infused Q8H ZEKE Infusion Protocol Vancomycin HCl 1,000 mg/ 250 mls @ 250 mls/hr 10/08/21 22:30 10/08/21 23:30 Sodium Chloride IV Infused Q24H ZEKE Infusion Dextrose/Sodium Chloride 1,000 mls @ 75 mls/hr 10/08/21 10:45 10/08/21 23:45 Dextrose 5%-Sod Chloride 0.9% IV 75 mls/hr .[id number] ZEKE Administration Sodium Chloride 1,000 mls @ 30 mls/hr 10/09/21 07:45 10/09/21 07:58 Sodium Chloride 0.9% IV 10/10/21 07:44 30 mls/hr .Q24H ZEKE Administration Levothyroxine Sodium 50 mcg 10/08/21 07:12 10/09/21 07:27 Levothyroxine 50 Mcg Tablet PO Not Given QAM ZEKE Non-Formulary Medication 400 mg 10/08/21 09:00 10/08/21 21:44 Pentoxifylline PO Not Given TID ZEKE Oxybutynin Chloride 5 mg 10/08/21 07:12 10/09/21 07:27 Oxybutynin 5 Mg Tablet PO Not Given QAM ZEKE Pantoprazole Sodium 40 mg 10/08/21 09:00 10/08/21 20:[address] 40 Mg Tablet PO 40 mg BID ZEKE Administration Polyethylene Glycol 17 gm 10/08/21 10:35 10/08/21 12:44 Polyethylene Glycol 3350 Pkt 17 Gm PO 17 gm DAILY ZEKE Administration Senna/Docusate Sodium 1 tab 10/08/21 09:00 10/08/21 18:12 Sennosides-Docusate Tablet PO Not Given BID ZEKE Tramadol HCl 50 mg 10/08/21 07:12 10/08/21 16:44 Tramadol 50 Mg Tablet PO 50 mg Q4H PRN Administration Moderate Pain PFSH Anesthesia Medical History CVA (cerebral vascular accident) Dehydration Fibromyalgia GERD (gastroesophageal reflux disease) Hypothyroidism Leukocytosis Lumbar degenerative disc disease Mixed incontinence Neuropathy Osteoarthritis Osteomyelitis of ankle or foot, right, acute Osteoporosis PAD (peripheral artery disease) Pressure ulcer of right foot, stage 2 Right foot ulcer SIRS (systemic inflammatory response syndrome) Urinary incontinence Vomiting Surgical History H/O dilation and curettage H/O esophagogastroduodenoscopy (12/16/20) H/O hand surgery H/O knee surgery H/O tubal ligation History of colonoscopy 1997 History of open reduction and internal fixation (ORIF) procedure right hip History of tonsillectomy Family History Sister Cancer PANCREATIC Other CAD (coronary artery disease) Hypertension Lung disease Social History Smoking and tobacco status: never smoked Alcohol intake: never Data Anesthesia : 10/09/21 03:15 10/09/21 03:15 Short CBC 10/07/21 10/09/21 Range/Units 20:45 03:15 WBC 9.9 8.8 (4.0-10.0) 10^3/uL Hgb 9.1 L 8.8 L (11.5-15.3) g/dL Hct 27.2 L 27.9 L (37.0-47.0) % MCV 88.0 92.1 (81-99) fl Plt Count 480 H 469 H (130-400) 10^3/cmm Neut % (Auto) 79.5 70.6 % Neut # (Auto) 7.87 H 6.24 (1.8-7.7) 10^3/uL BMP 10/07/21 10/09/21 20:45 03:15 Sodium 134 L 135 L Potassium 4.4 4.3 Chloride 102 105 Carbon Dioxide 22 21 L BUN 15 15 Creatinine 0.6 0.8 Glucose 165 H 129 H Calcium 7.6 L 7.3 L Liver Function 10/07/21 10/09/21 Range/Units 20:45 03:15 Total Bilirubin 0.3 0.3 (0.15-1.2) mg/dL AST 44 H 33 H (0-32) U/L ALT 29 27 (0-33) U/L Alkaline Phosphatase 125 H 117 H (35-105) IU/L Albumin 2.2 L 1.9 L (3.5-5.2) g/dL Urine 10/07/21 Range/Units 23:09 Urine Color Yellow (Yellow) Urine Appearance Cloudy (CLEAR) Urine pH 6 (5-7) Ur Specific [place] 1.005 (1.005-1.030) Urine Protein Trace (Negative) Urine Glucose (UA) Norm (Normal) Urine Ketones Negative (Negative) Urine Nitrate Negative (Negative) Urine Bilirubin Neg (Negative) Ur Leukocyte Esterase 2+ H (Negative) Urine RBC 5-10 H (0-2) /hpf Urine WBC Too numerous to cnt H (0-5) /hpf Coags 10/07/21 10/07/21 10/08/21 20:45 20:45 11:54 ESR 29 H 34 H PT INR C-Reactive Protein 120.8 H 10/09/21 10/09/21 03:15 03:15 ESR PT 15.00 H INR 1.15 C-Reactive Protein 80.1 H Microbiology 10/07/21 23:09 Urine Culture - Preliminary Urine,Clean Catch Strep species, gamma-hemolytic 10/07/21 22:35 Blood Culture - Preliminary Blood NEGATIVE TO DATE 10/07/21 22:32 Blood Culture - Preliminary Blood NEGATIVE TO DATE 10/08/21 01:30 Gram Stain - Final Back Cardiac Studies: Echocardiogram 09/13/21
--- NOTE | 2021-10-09 09:08 | PM.OP ---
Operative Report Date of procedure: October 09, 2021 Pre-op diagnosis: Preop Diagnosis Sacral pressure injury ulcer and right foot ulcers Procedure done: 1-sharp and excisional debridement of sacral pressure injury ulcer stage IV 2-Sharp excisional debridement of pressure injury ulcer stage III on the right buttock 3-sharp and excisional debridement of right foot lateral ulcer Implants: Surgicel placed at the sacral pressure injury ulcer bed Specimens removed/disposition: 1-Tissues for cultures and sensitivities from the sacral pressure injury ulcer in the form of soft tissues and bone for cultures and sensitivities 2-Tissues for cultures and sensitivities from the right lateral foot ulcer from the bone Surgeon: Tucker Craven MD Claim Manager: Surgical shira Carrasquillo and Elio Circulating nurse Alee Anesthesia: MAC (ict systems test engineer Pipe Brooks) Estimated blood loss (mL): 5 Procedure: After identifying the patient holding area,patient was then taken to the operative suite,was placed in left lateral position, all pressure points were padded and patient was appropriately secured to the bed., IV antibiotics were given per protocol,IV propofol was infused by the anesthesia provider, prep and drape of the periwound regions over the lower back,right upper thigh and right foot. Was done under the usual sterile technique. Time-out was done verifying the patient's name/date of /planned procedure and destination after the procedure, all were in agreement. Started by excising and debriding sharply the unhealthy necrotic indurated tissues of the sacral pressure injury ulcer, necrotic tissues were appreciated that they were excised and sent for cultures and sensitivities. Sharp debridement using Alvarado's scissors all the way to the sacral bony layer, pockets of pus were drained and sacral bone was sent for cultures and sensitivities using a rongeur device Incision was created at the skin level and went all the way down to the subcutaneous tissues and including the underlying muscle tissues and bony layer. Sacral pressure injury ulcer; Predebridement measurements 10 x 11.3 x 1.4 cm Postdebridement measurement 11 x 12 x [address] to the bony layer Attention was deviated towards the right buttock area pressure injury ulcer stage III were sharp debridement using Alvarado scissors was done as well followed by curette Predebridement measurements 1.8 x 1.5 x 0.1 cm Postdebridement measurements 2 x 1.7 x 0[address] to the fatty layer Right lateral foot ulcer is also sharply debrided all the way to the bony layer and a piece of bone of the right fifth metatarsal was sent for cultures and sensitivities. Alvarado scissor was used for sharp debridement as well as rongeur and curette. PreDebridement measurements 5.3 x 1.8 x 0.8 cm PostDebridement measurements 5.5 x [address] to the bony layer Copious and extensive irrigation of the wound was done using a Pulsavac in the form of a liter of normal saline solution, followed by appropriate hemostasis using Bovie cauterization that was completed by placement of 2 pieces of Surgicel, packing of the sacral ulcer, followed by packing with Kerlix impregnated and lidocaine 2%, followed by piece of , ABDs. Packing of the right buttock and right lateral foot ulcers was done by Kerlix wet-to-dry using lidocaine 2% followed by ABDs Patient tolerated the procedure well, count of instruments, needles and sponges were completed at the end of the procedure. Patient was then taken to the recovery area in stable condition. I was present for the whole entire procedure
[2021-10-09] MEDS: lidocaine 2% INJ 20 mL INJECTION (09:25)
--- NOTE | 2021-10-09 10:12 | ANE.PACU2 ---
Inpatient post-anesthesia follow up: Airway intact: Yes Vital signs: Temperature 97.1 F Pulse Rate 91 Respiratory Rate 16 Blood Pressure 122/47 Pulse Oximetry 100 Oxygen Delivery Me thod Nasal Cannula Oxygen Flow Rate 2 Fraction of Inspir ed Oxygen Hydration adequate: Yes Nausea and vomiting: No Pain level: 2 Mental status: Baseline
--- NOTE | 2021-10-09 11:27 | P.PN_ITS ---
Subjective Subjective: Patient was seen this morning, she is alert to person, to place, not to time, she tells me she is having a debridement this morning, she is laying on her side, on 2 L, patient's daughter is at bedside, I am not sure if she understands the depth of her situation, she is still quite drowsy -Patient's daughter tell me that they understand the seriousness of her condition, her recurrent right lower extremity ulcers, her sacral ulcer -They understand that with the sacral ulcer, now tunneling down to the bone, there is high suspicion for osteomyelitis, overall it requires extensive monitoring, will require possible further debridement, further antibiotic treatments, in order for it to heal well he will require extensive care, and skin follow-up -They understand that this is an extensive undertaking, their mom is a nurse, and they have a medical background, and they understand have significant sacral ulcers are, -For now they want to give a trial of IV antibiotics in debridement and monitor ing -However if this is reoccurring or if there are complications or if does not heal then they will consider hospice -I discussed the risks and benefits of debridement, IV antibiotics, they voiced understanding, all questions answered, agreed to proceed Vitals/I&O/Wt Last Vital Signs Temp 97.1 F L 10/09/21 09:29 Pulse 91 10/09/21 09:29 Resp 16 10/09/21 09:29 BP 122/47 10/09/21 09:29 Pulse Ox 100 10/09/21 09:29 10/08/21 10/09/21 10/09/21 22:59 06:59 14:59 Intake Total 620 / 670 1126.25 / 1796.25 170 / 170 Output Total 400 / 400 225 / 625 5 / 5 Balance 220 / 270 901.25 / 1171.25 165 / 165 Weight last 48 hrs Weight 47.582 kg Weight 49 kg Physical Exam Const: COMMON NORMALS: no acute distress EXAM LIMITATIONS: altered mental status ORIENTATION/CONSCIOUSNESS: Yes awake and Yes oriented to person; not oriented to place and not oriented to time Resp: COMMON NORMALS: normal respiratory effort, No retractions, No use of accessory muscles and clear to auscultation bilaterally AUSCULTATION: clear to auscultation bilaterally Cardio: COMMON NORMALS: regular rate, regular rhythm, S1 normal heart sound present and S2 normal heart sound present RATE: regular rate RHYTHM: regular rhythm HEART SOUNDS: S1 normal heart sound present and S2 normal heart sound present GI: COMMON NORMALS: Normal to inspection, nondistended, normoactive bowel sounds present, Soft to palpation and non-tender PALPATION: Yes Soft to palpation Extremity: COMMON NORMALS: no pedal edema Neuro: SENSORIUM/ORIENTATION: Yes oriented to person, No oriented to place and No oriented to time Psych: COMMON NORMALS: mental status grossly normal Skin: NARRATIVE SKIN EXAM: - Sacral decubitus ulcer, with dressing applied on top -Right lower extremity heel ulcer -Right lower extremity lateral ulcer Urinary Catheter Management: Clay: Cath Placed During This Visit: yes Reason for Continuing Indwelling Catheter: Assist Healing of Perineal & Sacral Wounds- Incontinent Patients Urinary Catheter Date of Insertion: 10/08/21 Data : 10/09/21 03:15 10/09/21 03:15 Micro: Microbiology 10/08/21 01:30 Gram Stain - Final Back Wound Culture - Preliminary Gram Negative Rods 10/07/21 23:09 Urine Culture - Preliminary Urine,Clean Catch Strep species, gamma-hemolytic 10/07/21 22:35 Blood Culture - Preliminary Blood NEGATIVE TO DATE 10/07/21 22:32 Blood Culture - Preliminary Blood NEGATIVE TO DATE A&P Assessment and plan (1) Decubitus ulcer, infected: Previously noted Pseudomonas in culture with right foot infection. Continue with antipseudomonal coverage with Zosyn, continue vancomycin. Wet-to-dry dressing for now. Pending additional assessment for debridement of the necrotic wound and DTI by surgery. Obtain wound cultures. Follow-up blood culture. Has received Plavix this morning, hold, plan on surgical intervention today Given CT's scan findings, tunneling down to bone, highly suspicious for osteomyelitis likely will require IV antibiotics for at least 6 weeks IV antibiotics, vancomycin for at least 6 weeks, gram-negative coverage and based on tissue cultures Follow tissue cultures Status: Acute (2) Suspected deep tissue injury of unknown depth of heel: Plantar R heel. In addition to the lateral aspect of the foot without significant drainage, pending surgical evaluation. Status: Acute (3) Abnormal urinalysis: Abnormal urinalysis with too numerous to count WBCs, possible UTI, but may be contamination due to large amount of purulence from sacral decub, with wound extenuated over the sacrum. Empiric antibiotics as above. Follow-up urine culture. Status: Acute (4) Acute encephalopathy: Status: Acute (5) Sepsis: Status: Acute Plan Acute encephalopathy, secondary to sepsis, secondary to sacral decubitus ulcer, foot ulcers Recent amputation of right fifth toe: Continue wet-to-dry dressings. PVD: Statin, , pentoxifylline History of CVA: Plavix on hold CHF: Recently started on oxygen, currently down to 2 L nasal cannula. Esophageal spasm Hypothyroidism Lumbar disc disease History of hip fracture Nonambulatory Other chronic medical problems. Attestations Medical Necessity Statement*: Patient requires hospitalization for sacral DTI, lateral foot ulcer, heel ulcer Coding Level of Care Code Acute Engineer System Administrator for [facility] Fwd Diagnoses Decubitus ulcer, infected L89.90; L08.9 Suspected deep tissue injury of unknown depth of heel R68.89 Abnormal urinalysis R82.90 Acute encephalopathy G93.40 Sepsis A41.9
[2021-10-09] MEDS: HYDROcodone-acetaminophen 5-325 mg Tablet 1 TAB PO (11:28)
[2021-10-09] MEDS: dextrose 5%-sod chloride 0.9% 1,000 ML 75 ML IV (14:31)
[2021-10-09] MEDS: baclofen 10 mg Tablet 5 MG PO (15:48)
[2021-10-09] MEDS: piperacillin-tazobactam 3.375 GM in sodium chloride 0.9% (plus) 50 ML IV (15:50)
[2021-10-09] MEDS: sennosides-docusate Tablet 1 TAB PO (17:50)
[2021-10-09] MEDS: docusate sodium 100 mg Capsule PO (17:50)
[2021-10-09] MEDS: pantoprazole DR 40 mg Tablet PO (17:50)
[2021-10-09] MEDS: duloxetine 30 mg Capsule PO (21:00)
[2021-10-09] MEDS: amitriptyline 25 mg Tablet 100 MG PO (21:00)
[2021-10-09] MEDS: atorvastatin 40 mg Tablet PO (21:01)
--- NOTE | 2021-10-09 21:46 | PC.RESP ---
Pt spo2 was 81% on 2L n/c boosted pt up in the bed & repositioned, blew her nose, increased O2 to 6L initially and then titrated down to 4L with bubble humidity after repositioning and clearing nasal secretions increased Spo2 to 97% on 4L nasal cannula
[2021-10-09] MEDS: heparin 5,000 unit/mL INJ 1 mL 5000 UNIT SUBCUT (22:54)
[2021-10-09] MEDS: vancomycin 1,000 MG in sodium chloride 0.9% 250 ML 250 MG IV (22:54)
[2021-10-10] VITALS (12 sets, daily range): BP systolic 115–147; BP diastolic 54–70; PULSE 64–100; RESP 10–18; TEMP 36.3–37.5; O2SAT 94–97
[2021-10-10] MEDS: piperacillin-tazobactam 3.375 GM in sodium chloride 0.9% (plus) 50 ML IV ×4 (00:37→23:22)
[2021-10-10] MEDS: morphine 4 mg/mL SDV 1 mL 2 MG IVP ×2 (02:37→10:35)
[2021-10-10 04:10] LABS: INR 1.27 (0.8-1.2)
[2021-10-10 04:20] LABS: Lactate (Lactic Acid level) 1.4 mmol/L (0.5-2.2)
[2021-10-10 04:36] LABS: Procalcitonin 0.14 ng/mL (0-0.5)
[2021-10-10 04:46] LABS: C Reactive Protein 55.4 mg/L (0.0-4.9); Magnesium 1.6 mg/dL (1.7-2.3); Phosphorus 2.2 mg/dL (2.5-4.5)
[2021-10-10] MEDS: levothyroxine 50 mcg Tablet PO (05:55)
[2021-10-10] MEDS: oxybutynin 5 mg Tablet PO (05:55)
[2021-10-10] MEDS: dextrose 5%-sod chloride 0.9% 1,000 ML 75 ML IV (05:55)
[2021-10-10] MEDS: sennosides-docusate Tablet 1 TAB PO ×2 (09:00→17:41)
[2021-10-10] MEDS: pantoprazole DR 40 mg Tablet PO ×2 (09:00→17:41)
[2021-10-10] MEDS: heparin 5,000 unit/mL INJ 1 mL 5000 UNIT SUBCUT ×3 (09:00→22:30)
[2021-10-10] MEDS: docusate sodium 100 mg Capsule PO ×2 (09:00→17:40)
--- NOTE | 2021-10-10 09:03 | XR_ITS ---
WS: [id number] PORTABLE CHEST HISTORY: PICC line placement. COMPARISON: 09/14/2021 Right-sided PICC line has been placed with tip terminating in the mid to distal SVC. No complications are evident. Chronic emphysematous changes. Small but increasing LEFT pleural effusion. Compressive atelectasis at the LEFT base. No pleural effusion or pneumothorax. Cardiac size: Normal. Mediastinum/Aorta: Moderate atherosclerosis aorta. Osteopenia. XR/XR chest 1V portable [id number] IMPRESSION: 1. Satisfactory position of the RIGHT PICC line. 2. Small but increasing LEFT pleural effusion and LEFT basilar atelectasis.
--- NOTE | 2021-10-10 13:42 | P.PN_ITS ---
Subjective Subjective: Status post PICC line placement today She does have bilateral pleural effusion left greater than right Requiring 2 to 3 L of oxygen Is complaining of back pain Escalate opioids Daughter leaning towards comfort care if she gets worse and from now onwards Vitals/I&O/Wt Last Vital Signs Temp 97.6 F 10/10/21 11:55 Pulse 88 10/10/21 11:55 Resp 15 10/10/21 11:55 BP 133/54 10/10/21 11:55 Pulse Ox 96 10/10/21 11:55 10/09/21 10/10/21 10/10/21 22:59 06:59 14:59 Intake Total 1210 / 2380 1050 / 3430 Output Total 500 / 505 Balance 1210 / 2375 550 / 2925 Weight last 48 hrs Weight 53.206 kg Weight 47.582 kg Physical Exam Narrative: Patient laying supine Complaining of back pain Able to comprehend and answer my question appropriately Currently on 2 to 3 L of nasal cannula Right arm PICC line placed Abdomen distended however nontender Extremity contractures Edema of right ankle Mild bleeding of toes on right side noted Patient is awake and alert In distress because of back pain S1, S2 variable Urinary Catheter Management: Clya: Cath Placed During This Visit: yes Reason for Continuing Indwelling Catheter: Assist healing open wound Urinary Catheter Date of Insertion: 10/08/21 Data : 10/09/21 03:15 10/09/21 03:15 Micro: Microbiology 10/08/21 01:30 Gram Stain - Final Back Wound Culture - Preliminary Pseudomonas aeruginosa Corynebacterium species 10/09/21 08:46 Gram Stain - Final Other Source Tissue Culture - Preliminary Strep species, gamma-hemolytic Strep species, alpha hemolytic 10/09/21 08:46 Gram Stain - Final Other Source Tissue Culture - Preliminary Strep species, gamma-hemolytic Gram Negative Rods 10/09/21 08:46 Gram Stain - Final Foot - Right Tissue Culture - Preliminary Gram Negative Rods Strep species, gamma-hemolytic A&P Assessment and plan (1) Open wound of right foot: Status: Acute (2) Sacral decubitus ulcer, stage IV: Status: Acute (3) Abnormal urinalysis: Status: Acute (4) Decubitus ulcer, infected: Status: Acute (5) Hypoxia: Status: Acute (6) Esophageal spasm: Status: Acute (7) Contracture, right knee: Status: Acute (8) Lumbosacral radiculopathy at L5: Status: Acute (9) Edema of left lower leg: Status: Acute Plan Status post PICC line placement for osteomyelitis She will get 6 weeks of cefepime 1 g every 12 hours culture is showing gram- negative rods, previous cultures were positive for Pseudomonas, strep species, hemolytic Patient and family leaning towards comfort care if she gets worsens from now onwards She does have peripheral vascular disease Not amenable for him to intervention as per my discussion with Dr. Chen during previous visit She carries guarded prognosis She does have bilateral pleural effusion, chronic hypoxia without acute worsening Her pleural effusion seems to be getting worse since She is also suffering from esophageal spasm She is DNR/DNI Her pleural effusion to be treated with Lasix for now her oxygen equipment has not worsened Attestations Medical Necessity Statement*: Pending placement Time Spent in Patient Care: 30 Coding Level of Care Code Acute Plating Engineer for [facility] Fwd Diagnoses Open wound of right foot S91.301A Sacral decubitus ulcer, stage IV L89.154 Abnormal urinalysis R82.90 Decubitus ulcer, infected L89.90; L08.9 Hypoxia R09.02 Esophageal spasm K22.4 Contracture, right knee M24.561 Lumbosacral radiculopathy at L5 M54.17 Edema of left lower leg R60.0
[2021-10-10] MEDS: morphine ER (12 HR) 30 mg tablet PO ×2 (14:03→17:41)
--- NOTE | 2021-10-10 17:34 | PC.PT ---
Went to room to see patient, patient daughter present, states patient has been working with OT at [facility], but unable to participate with physical therapy due to bilateral lower extremity contractures, and nonambulatory due to the same, family request Occupational Therapy, feeling they can help her better with her arms. Order is now switched to occupational therapy consult.
[2021-10-10] MEDS: duloxetine 30 mg Capsule PO (21:29)
[2021-10-10] MEDS: atorvastatin 40 mg Tablet PO (21:29)
[2021-10-10] MEDS: amitriptyline 25 mg Tablet 100 MG PO (21:29)
[2021-10-11] VITALS (7 sets, daily range): BP systolic 103–121; BP diastolic 59–66; PULSE 90–97; RESP 15–16; TEMP 36.3–36.8; O2SAT 92–98
[2021-10-11] MEDS: morphine 4 mg/mL SDV 1 mL 2 MG IVP (03:47)
[2021-10-11] MEDS: oxybutynin 5 mg Tablet PO (03:51)
[2021-10-11] MEDS: levothyroxine 50 mcg Tablet PO (03:52)
[2021-10-11 04:14] LABS: INR 1.27 (0.8-1.2)
[2021-10-11 04:25] LABS: C Reactive Protein 40.4 mg/L (0.0-4.9); Magnesium 1.8 mg/dL (1.7-2.3); Phosphorus 2.1 mg/dL (2.5-4.5)
[2021-10-11 04:29] LABS: Procalcitonin 0.15 ng/mL (0-0.5)
[2021-10-11 05:39] LABS: Lactate (Lactic Acid level) 0.5 mmol/L (0.5-2.2)
[2021-10-11] MEDS: heparin 5,000 unit/mL INJ 1 mL 5000 UNIT SUBCUT (06:23)
[2021-10-11] MEDS: morphine ER (12 HR) 30 mg tablet PO (08:30)
[2021-10-11] MEDS: pantoprazole DR 40 mg Tablet PO (08:31)
[2021-10-11] MEDS: sennosides-docusate Tablet 1 TAB PO (08:31)
[2021-10-11] MEDS: docusate sodium 100 mg Capsule PO (08:31)
[2021-10-11] MEDS: piperacillin-tazobactam 3.375 GM in sodium chloride 0.9% (plus) 50 ML IV (08:41)
--- NOTE | 2021-10-11 10:48 | PM.DCS ---
Discharge Providers Date of Admission: 10/08/21 01:46 Date of Discharge: October 11, 2021 Attending Provider at Admission: Hi Jacobsen Attending Provider at Discharge: Hermilo Lee MD Primary Care Provider: Khloe Arthur, Diagnoses at Discharge Discharge Diagnosis (1) Open wound of right foot: Status: Acute (2) Sacral decubitus ulcer, stage IV: Status: Acute (3) Abnormal urinalysis: Status: Acute (4) Decubitus ulcer, infected: Status: Acute (5) Hypoxia: Status: Acute (6) Esophageal spasm: Status: Acute (7) Contracture, right knee: Status: Acute (8) Lumbosacral radiculopathy at L5: Status: Acute (9) Edema of left lower leg: Status: Acute Reason for Visit Reason for Visit: INFECTED ULCERS Hospital Course Hospital Course Patient was admitted on 10/08 for management and evaluation of infected decubitus ulcer, she was also treated for abnormal UA/UTI she remained on IV antibiotics broad-spectrum. On 10/09 went for sharp excisional debridement of sacral pressure ulcer stage IV stage III ulcer of right buttocks, sharp excisional debridement of right foot lateral ulcer. Cultures are showing gram-negative rods with gamma hemolytic Streptococcus. PICC line was placed on 10/10. Decision was made to discharge her back to the facility on cefepime 2 g every 12 hours for about 6 weeks. Patient & her daughter decided to do a trial of 6 weeks of IV antibiotics, they are leaning towards initiation of hospice/comfort care in case of further worsening which I believe is inevitable. She has severe peripheral vascular disease and not a good candidate for any intervention at this point, she was deemed high risk for amputation as well at previous admission. I will add morphine long-acting regimen along her as needed opioid. Added senna S. Sacral ulcer 11 x [address] to bone where Right foot ulcer 5 x 2 x 1 Right buttocks 2 x 1.7x0.2 Physical Exam Narrative: Const:?? COMMON NORMALS: no acute distress? E XAM LIMITATIONS: a ltered mental stat us? ORIENTATION/CO NSCIOUSNESS: Yes a wake and Yes orien jameson to person; not oriented to place and not oriented to time Resp:?? COMMON NORMALS: no rmal respiratory e ffort, No retracti ons, No use of acc essory muscles and clear to ausculta tion bilaterally? AUSCULTATION: antonio r to auscultation bilaterally Cardio:?? COMMON NORMALS: re gular rate, regula r rhythm, S1 margarita l heart sound pres ent and S2 normal heart sound presen t? RATE: regular r ate? RHYTHM: regul ar rhythm? HEART S OUNDS: S1 normal h eart sound present and S2 normal hea rt sound present GI:?? COMMON NORMALS: No rmal to inspection , nondistended, no rmoactive bowel so unds present, Soft to palpation and non-tender? PALPAT ION: Yes Soft to p alpation Extremity:?? COMMON NORMALS: no pedal edema Neuro:?? SENSORIUM/ORIENTAT ION: Yes oriented to person, No orie nted to place and No oriented to jordi e Psych:?? COMMON NORMALS: me ntal status grossl y normal Skin:?? NARRATIVE SKIN EXA M: - Sacral decub itus ulcer, with d ressing applied on top -Right lower extremity heel ul cer -Right lower extremity lateral ulcer Urinary Catheter Management: Clay: Cath Placed During This Visit: yes Reason for Continuing Indwelling Catheter: Assist Healing of Perineal & Sacral Wounds- Incontinent Patients Urinary Catheter Date of Insertion: 10/08/21 Discharge Data Studies Completed and Pending Completed Studies During Hospitalization Category Date Time Status CT abdomen pelvis w con* [id number] Urgent Cat Scan 10/07/21 21:16 Completed XR chest 1V portable [id number] Stat Exams 10/10/21 09:03 Completed Pending at discharge Category Date Time Status ES surgery / GI images Routine Exams 10/09/21 08:39 Taken Blood Culture Stat Lab 10/07/21 22:35 Results Tissue Culture and Gram Stain Routine Lab 10/09/21 08:46 Results Tissue Culture and Gram Stain Routine Lab 10/09/21 08:46 Results Tissue Culture and Gram Stain Routine Lab 10/09/21 08:46 Results Wound Culture and Gram Stain Routine Lab 10/08/21 01:30 Results Radiology Impressions Abdomen/Pelvis CT 10/07/21 21:16 IMPRESSION: 1. Large sacral decubitus ulcer extending to the sacral tip and coccyx. 2. Left pleural effusion 3. Partial left lower lobe atelectasis 4. Cholelithiasis 5. Other intra-abdominal findings not significantly changed from 09/06/2021 COMMENTS: Consistent with the [employer]'s Incidental Findings Committee white paper (J Am Franklyn Radiol 2018): Any incidental renal lesion less than 1 cm or classified as too small to characterize, or any incidental cystic renal lesion characterized as simple-appearing, is likely benign. No follow-up imaging is recommended for these lesions per consensus recommendations based on imaging criteria. Chest X-Ray 10/10/21 09:03 IMPRESSION: 1. Satisfactory position of the RIGHT PICC line. 2. Small but increasing LEFT pleural effusion and LEFT basilar atelectasis. Laboratory Results WBC 8.8 10^3/uL (4.0-10.0) 10/09/21 03:15 RBC 3.03 10^6/uL (4.1-5.3) L 10/09/21 03:15 Hgb 8.8 g/dL (11.5-15.3) L 10/09/21 03:15 Hct 27.9 % (37.0-47.0) L 10/09/21 03:15 MCV 92.1 fl (81-99) 10/09/21 03:15 MCH 29.0 pg (28.0-34.0) 10/09/21 03:15 MCHC 31.5 g/dL (30.0-36.0) 10/09/21 03:15 RDW 15.6 % (12.1-15.1) H 10/09/21 03:15 Plt Count 469 10^3/cmm (130-400) H 10/09/21 03:15 MPV 10.2 fL (7.4-10.4) 10/09/21 03:15 Neut % (Auto) 70.6 % 10/09/21 03:15 Lymph % (Auto) 11.5 % 10/09/21 03:15 [place] % (Auto) 8.9 % 10/09/21 03:15 Eos % (Auto) 7.4 % 10/09/21 03:15 Baso % (Auto) 0.7 % 10/09/21 03:15 Neut # (Auto) 6.24 10^3/uL (1.8-7.7) 10/09/21 03:15 Lymph # (Auto) 1.0 10^3/uL (0.8-4.8) 10/09/21 03:15 [place] # (Auto) 0.8 10^3/uL (0.2-0.9) 10/09/21 03:15 Eos # (Auto) 0.7 10^3/uL (0.0-0.8) 10/09/21 03:15 Baso # (Auto) 0.1 10^3/uL (0.0-0.1) 10/09/21 03:15 Nucleated RBC % (auto) 0 % 10/09/21 03:15 Nucleated RBCs # 0.0 /100WBC 10/09/21 03:15 ESR 34 mm/hr (0-15) H 10/08/21 11:54 PT 16.20 SECONDS (12.1-14.9) H 10/11/21 03:43 INR 1.27 (0.8-1.2) H 10/11/21 03:43 Sodium 135 mmol/L (136-145) L 10/09/21 03:15 Potassium 4.3 mmol/L (3.5-5.1) 10/09/21 03:15 Chloride 105 mmol/L (98-107) 10/09/21 03:15 Carbon Dioxide 21 mmol/L (22-29) L 10/09/21 03:15 Anion Gap 13.3 (5-19) 10/09/21 03:15 BUN 15 mg/dL (8-23) 10/09/21 03:15 Creatinine 0.8 mg/dL (0.5-0.9) 10/09/21 03:15 GFR Calculation Not Reportable 10/09/21 03:15 Glucose 129 mg/dL (65-115) H 10/09/21 03:15 Calculated Osmolality 283 mOsm/kg (285-295) L 10/09/21 03:15 Lactate 0.5 mmol/L (0.5-2.2) 10/11/21 05:12 Calcium 7.3 mg/dL (8.5-10.5) L 10/09/21 03:15 Phosphorus 2.1 mg/dL (2.5-4.5) L 10/11/21 03:43 Magnesium 1.8 mg/dL (1.7-2.3) 10/11/21 03:43 Total Bilirubin 0.3 mg/dL (0.15-1.2) 10/09/21 03:15 AST 33 U/L (0-32) H 10/09/21 03:15 ALT 27 U/L (0-33) 10/09/21 03:15 Alkaline Phosphatase 117 IU/L (35-105) H 10/09/21 03:15 C-Reactive Protein 40.4 mg/L (0.0-4.9) H 10/11/21 03:43 Total Protein 5.7 g/dL (6.6-8.7) L 10/09/21 03:15 Albumin 1.9 g/dL (3.5-5.2) L 10/09/21 03:15 Globulin 3.8 g/dL (1.3-4.6) 10/09/21 03:15 Lipase 14 U/L (13-60) 10/07/21 20:45 Procalcitonin 0.15 ng/mL (0-0.5) 10/11/21 03:43 Urine Color Yellow (Yellow) 10/07/21 23:09 Urine Appearance Cloudy (CLEAR) 10/07/21 23:09 Urine pH 6 (5-7) 10/07/21 23:09 Ur Specific [place] 1.005 (1.005-1.030) 10/07/21 23:09 Urine Protein Trace (Negative) 10/07/21 23:09 Urine Glucose (UA) Norm (Normal) 10/07/21 23:09 Urine Ketones Negative (Negative) 10/07/21 23:09 Urine Blood 2+ (Negative) H 10/07/21 23:09 Urine Nitrate Negative (Negative) 10/07/21 23:09 Urine Bilirubin Neg (Negative) 10/07/21 23:09 Urine Urobilinogen Norm mg/dL (Negative) 10/07/21 23:09 Ur Leukocyte Esterase 2+ (Negative) H 10/07/21 23:09 Urine RBC 5-10 /hpf (0-2) H 10/07/21 23:09 Urine WBC Too numerous to cnt /hpf (0-5) H 10/07/21 23:09 Ur Squamous Epith Cells 0-4 /hpf (0-5) H 10/07/21 23:09 Amorphous Sediment Not Reportable 10/07/21 23:09 Urine Bacteria 1+ /hpf (NONE) H 10/07/21 23:09 Urine Yeast 2+ /hpf H 10/07/21 23:09 Vitals Last Vital Signs Temp 97.5 F L 10/11/21 07:10 Pulse 97 10/11/21 07:10 Resp 16 10/11/21 08:30 BP 120/65 10/11/21 07:10 Pulse Ox 94 10/11/21 07:10 Discharge Plan Discharge Patient Disposition: Xfer SNF Condition: Fair Prescriptions: New morphine 30 mg Tablet Extended Release 30 mg PO BID Qty: 20 0RF sennosides-docusate sodium [Senna-S] 8.6-50 mg tablet 1 tab-cap PO BID Qty: 60 0RF cefepime 2 gram recon soln 2 g IV Q12H Qty: 1 0RF Continued hydrocodone-acetaminophen 5-325 mg tablet See Rx Instructions .ROUTE .COMPLEX 0RF Rx Instructions: ONE TAB PO Q4H PRN MODERATE PAIN -SEVERE TAKE 1/2 TO 1 TAB BID PRN baclofen 5 mg tablet 5 mg PO TID Qty: 270 2RF Plavix 75 mg tablet 75 mg PO QAM 90 Days Qty: 90 2RF oxybutynin chloride 5 mg tablet 5 mg PO QAM 90 Days Qty: 90 2RF Protonix 40 mg tablet,delayed release (DR/EC) 40 mg PO BID 90 Days Qty: 180 3RF pentoxifylline 400 mg tablet extended release 400 mg PO TID Qty: 90 4RF Rx Instructions: must administer with a meal/food levothyroxine 50 mcg tablet 50 mcg PO QAM 90 Days Qty: 90 1RF atorvastatin 40 mg tablet 40 mg PO BEDTIME 0RF acetaminophen [Tylenol] 325 mg tablet 650 mg PO Q6H PRN (Reason: Mild Pain (Scale Score 1-4)) 0RF cholecalciferol (vitamin D3) 1,250 mcg (50,000 unit) capsule 1,250 mcg PO Q7D 0RF Rx Instructions: ON SUNDAY Senna-S 8.6-50 mg Tablet 1 tab PO BID 0RF Ultram 50 mg Tablet 50 mg PO Q12H PRN (Reason: Mild Pain (Scale Score 1-4)) 0RF Reglan 5 mg Tablet 5 mg PO Q12H PRN (Reason: Nausea And Vomiting) 0RF Milk of Magnesia 400 mg/5 mL Suspension 30 ml PO Q24H PRN (Reason: Constipation) 0RF Dulcolax (bisacodyl) 10 mg Suppository 10 mg ID DAILY PRN (Reason: Constipation) 0RF Fleet Enema 19-7 gram/118 mL Enema 118 ml ID DAILY PRN (Reason: Constipation) 0RF nystatin 100,000 unit/gram Powder See Rx Instructions .ROUTE .COMPLEX 0RF Rx Instructions: APPLY TO GROIN TOPICALLY EVERY 12 HOURS PRN YEASTY SKIN collagenase clostridium histo. 250 unit/gram Ointment See Rx Instructions .ROUTE .COMPLEX 0RF Rx Instructions: APPLY TO SACRUM WOUND TOPICALLY EVERY DAY SHIFT amitriptyline 100 mg Tablet 100 mg PO DAILY 0RF Cymbalta 30 mg Capsule,Delayed Release(Dr/Ec) 30 mg PO DAILY 0RF PreserVision AREDS [phone] dcts-ai-limd Capsule 1 cap PO BID 0RF Discontinued amlodipine 5 mg Tablet 5 mg PO DAILY 0RF Discharge Orders: Discharge Order (Routine); Ordered 10/11/21 Ordered By: Hermilo Lee Referrals: Khloe Arthur DO [Primary Care Provider] - (Your follow up appointment with Dr. Arthur is on 10-24-21 at 11:30 am. Please call [phone] if you have any questions or concerns. Thank you.) Discharge Diet: GI Soft Discharge Activity: Bedrest Patient Instructions: Morphine, Rapid Release (By mouth) (Roxanol), Senna (By mouth) (Sen, Senna-lax) Discharge Attestations Time Spent in Discharge Care*: less than 30 min Quality Metrics Clinical Quality Measures [ No reported AMI, CVA or VTE this stay] Coding Level of Care Code Acute [facility] note Diagnoses Open wound of right foot S91.301A Sacral decubitus ulcer, stage IV L89.154 Abnormal urinalysis R82.90 Decubitus ulcer, infected L89.90; L08.9 Hypoxia R09.02 Esophageal spasm K22.4 Contracture, right knee M24.561 Lumbosacral radiculopathy at L5 M54.17 Edema of left lower leg R60.0
--- NOTE | 2021-10-11 11:50 | PC.NURSE ---
Attempted to call report to [facility] but the nurse is gone to lunch and I will need to call back in 30 mintues.
--- NOTE | 2021-10-11 12:26 | PC.NURSE ---
Report tcalled to [facility] at this time.
--- NOTE | 2021-10-11 16:29 | PC.SOCIAL ---
IMM UPDATED IMM dated and initialed copy given to patient and copy placed in chart
== END 2021-10-11 13:22 | disposition skilled nursing facility (03) | DRG 853 ==
LOC: ER 21:34 → MEDSURG 10-08 01:46
PROVIDERS: Family Medicine; Surgery; Admitting Provider Internal Medicine; Emergency Provider Emergency Medicine; PCP Family Medicine; Visit Provider Internal Medicine
PROC: 0JB90ZZ Excision of Buttock Subcutaneous Tissue and Fascia, Open Approach (ICD-10-PCS; principal; 2021-10-09 08:00)
DX: A41.9 Sepsis, unspecified organism (principal); E43 Unspecified severe protein-calorie malnutrition; G93.41 Metabolic encephalopathy; L89.154 Pressure ulcer of sacral region, stage 4; L89.313 Pressure ulcer of right buttock, stage 3; J90 Pleural effusion, not elsewhere classified; N39.0 Urinary tract infection, site not specified; M86.9 Osteomyelitis, unspecified; Z68.1 Body mass index [BMI] 19.9 or less, adult; L89.619 Pressure ulcer of right heel, unspecified stage; I73.9 Peripheral vascular disease, unspecified; Z89.421 Acquired absence of other right toe(s); Z86.73 Personal history of transient ischemic attack (TIA), and cerebral infarction without residual deficits; M79.7 Fibromyalgia; K21.9 Gastro-esophageal reflux disease without esophagitis; E03.9 Hypothyroidism, unspecified; G62.9 Polyneuropathy, unspecified; M81.0 Age-related osteoporosis without current pathological fracture; Z74.01 Bed confinement status; S91.301A Unspecified open wound, right foot, initial encounter; Z79.02 Long term (current) use of antithrombotics/antiplatelets; Z79.891 Long term (current) use of opiate analgesic; B95.5 Unspecified streptococcus as the cause of diseases classified elsewhere; Z66 Do not resuscitate; M54.17 Radiculopathy, lumbosacral region; M24.561 Contracture, right knee; K22.4 Dyskinesia of esophagus
CPT/HCPCS: 11042; 11044; 36415; 36569; 36592; 51702; 71045; 74177; 80053; 81001; 81003; 83605; 83690; 83735; 84100; 84145; 85025; 85610; 85651; 86140; 87040; 87070; 87075; 87077; 87086; 87176; 87186; 87205; 94664; 96365; 96367; 96372; 96375; 97165; 99285; J1644; J2270; J2543; J2704; J3010; J3370; J7030; J7050; Q9967